=== PATIENT | female | born 1975 | race Caucasian/White ===

== ENCOUNTER 2023-01-31 09:32 | Emergency (ER) | payer MEDICAID, SELFPAY ==
--- NOTE | ~2023-01-31 | XR_ITS ---
EXAMINATION: XR CHEST CLINICAL INFORMATION: Pain COMPARISON: None available. TECHNIQUE: Frontal view of the chest was obtained. FINDINGS: Cardiac silhouette is normal in size. Lungs are well aerated. There is no lobar consolidation. No pleural effusion or pneumothorax. XR/XR chest 1V IMPRESSION: No acute pulmonary pathology.
[2023-01-31 09:41] VITALS: BP 145/80; PULSE 85; RESP 17; TEMP 36.8; O2SAT 99
--- NOTE | 2023-01-31 09:47 | ECG_ITS ---
Test Reason : CP Blood Pressure : / mmHG Vent. Rate : 085 BPM Atrial Rate : 085 BPM P-R Int : 130 ms QRS Dur : 082 ms QT Int : 354 ms P-R-T Axes : 054 095 053 degrees QTc Int : 421 ms Normal sinus rhythm with sinus arrhythmia Rightward axis RSR' or QR pattern in V1 suggests right ventricular conduction delay Borderline ECG No previous ECGs available Referred By: Sondra Hughes Electronically Signed By:KEON CHAMBERS MD
--- NOTE | 2023-01-31 09:54 | ED.GENADULT ---
HPI - General Adult General Chief complaint: General Medical Stated complaint: Nausea Light Headed Time Seen by Provider: 01/31/23 09:48 Source: patient Mode of arrival: ambulatory Limitations: no limitations History of Present Illness HPI narrative: 47 yo female with PMH of anxiety, panic attacks, HLD, syncopal events with normal nuclear stress in August 2022, prior bilateral oophorectomy for ovarian lesion but no reports of malignancy, partial hysterectomy - in [place] for these events at this time she just moved to [place] in November now is helping to raise three small grandchildren and has more stress she notes yesterday at rest chest tightness and fell asleep 3 times. No hx of seizures, did not wake up confused, was not on the floor and has no injuries. She is at baseline now just admits to stress. This has happened before and they blamed her panic attacks. MD complaint: chest pain Onset (ago): day(s) (1) Location: chest Radiation: non-radiation Severity: moderate Quality: other (tightness) Pain Consistency: constant Relieving factors: none Exacerbating factors: other (stress) Associated symptoms: other (anxiety) Treatments prior to arrival: none Related Data Allergies Allergy/AdvReac Type Severity Reaction Status Date / Time No Known Allergies Allergy Verified 01/31/23 09:46 Review of Systems Review of Systems: Constitutional : No Weight loss, No Fever, No Chills ENT/Mouth : No sore throat, No Rhinorrhea Eyes: No Eye Pain, No Swelling Cardiovascular : pos Chest Pain, no SOB, no Dyspnea on Exertion, No Orthopnea, No Edema, No Palpitations Respiratory : No Cough, No Sputum Gastrointestinal : no Nausea, No Vomiting, No Diarrhea, No abdominal Pain, No Hematochezia, No Melena Genitourinary : No Dysuria, No Urinary Frequency Musculoskeletal : No joint pain, No Myalgias, No Joint Swelling Skin : No Skin Lesions, No rash Neuro : No Weakness, No Numbness, No Dizziness, No Headache Psych : No Anxiety/Panic, No Depression All other systems reviewed and are negative [facility] Past Medical History Attestation statement: The following information was validated with the patient. Source: old records reviewed Medical History Anxiety Social History Social History Smoked in Last 30 Days: Yes Use of substances other than those prescribed or required for medical reasons: No Advance Directives: No Physical Exam ED Vital Signs: Vital Signs - 24 hr 01/31/23 09:41 Temperature 98.2 F Pulse Rate 85 Respiratory Rate 17 Blood Pressure 145/80 H Pulse Oximetry 99 Oxygen Delivery Method Room Air BMI result Body Mass Index 30.0 Appearance: Alert. Oriented X3. No acute distress. Eyes: Pupils equal, round and reactive to light. ENT: Pharynx normal. Neck: Normal inspection. Neck supple. CVS: Normal heart rate and rhythm. Pulses normal. Respiratory: No respiratory distress. Breath sounds normal. Abdomen: Soft and nontender. Skin: Skin warm and dry. Normal skin color. Normal skin turgor. Extremities: No lower extremity edema. No calf ttp Neuro: Oriented X 3. No motor deficit. No sensory deficit. Medications Administered Discontinued Medications Generic Name Dose Route Start Last Admin Trade Name Freq PRN Reason Stop Dose Admin Lorazepam 0.5 mg 01/31/23 10:15 01/31/23 10:26 Lorazepam 0.5 Mg Tablet PO 01/31/23 10:16 0.5 mg ONCE ONE Administration Medical Decision Making Medical Decision Making [facility] Narrative: 47 yo female with PMH of anxiety, panic attacks, HLD, syncopal events with normal nuclear stress in August 2022, prior bilateral oophorectomy for ovarian lesion but no reports of malignancy, partial hysterectomy here with c/o atypical chest pain and falling asleep at this time will obtain troponin x 1, EKG, ddimer and CXR - PO ativan for anxiety. She has had these symptoms in the past with negative cardiac workup. Differential Diagnosis Differential Diagnoses: The differential diagnosis associated with the presentation includes anxiety, VTE, atypical chest pain Admission/Observation Consideration of admission/observation: Escalation of care including admission/observation considered EKG nonischemic, trop and ddimer flat at this time no acute findings with > 12 hours of symptoms and similar episodes in past. Lab Data [facility] Lab Attestation statement: I reviewed the patient's lab results. 01/31/23 10:32 01/31/23 10:32 Labs: Lab Results 01/31/23 Range/Units 10:32 WBC 6.1 (4.8-10.8) X10*3/uL RBC 4.60 (4.20-5.50) X10*6/uL Hgb 13.4 (12.0-16.0) g/dl Hct 41.2 (37.0-47.0) % MCV 89.6 (80.0-98.0) fL MCH 29.1 (27.0-33.0) pg MCHC 32.5 (31.0-35.0) g/dl RDW 14.1 (11.0-16.0) % Plt Count 284 (160-400) X10*3/uL MPV 10.0 (9.4-12.3) fL Immature Gran % (Auto) 0.3 (0.0-0.4) % Neut % (Auto) 56.5 (45-73) % Lymph % (Auto) 32.3 (20-40) % [place] % (Auto) 8.7 (2-11) % Eos % (Auto) 1.5 (0-4) % Baso % (Auto) 0.7 (0-2) % Lymph # (Auto) 2.0 (1.2-4.9) X10*3/uL [place] # (Auto) 0.5 (0.1-1.2) X10*3/uL Eos # (Auto) 0.1 (0.0-0.4) X10*3/uL Baso # (Auto) 0.0 (0.0-0.2) X10*3/uL Abs Immat Gran (auto) 0.02 (0.00-0.03) X10*3/uL Absolute Neuts (auto) 3.4 (2.0-8.3) x10*3/uL Absolute Nucleated RBC 0.000 (0.0-0.012) X10*3/uL Nucleated RBC % (auto) 0.0 (0.0-0.2) /100WBC D-Dimer High Sensitivty < 150 NG/ML Sodium 139 (135-145) mmol/L Potassium 4.2 (3.3-5.1) mmol/L Chloride 106 (96-108) mmol/L Carbon Dioxide 27 (22-29) mmol/L Anion Gap 10 L (12-20) BUN 11 (9-16) mg/dL Creatinine 0.78 (0.5-1.4) mg/dL Estim Creat Clear Calc 99.6 Estimated GFR > 60 Random Glucose 93 (60-115) mg/dL Calcium 10.0 (8.4-10.2) mg/dL Magnesium 2.0 (1.6-2.6) mg/dL Total Bilirubin 0.3 (0.0-1.0) mg/dL Direct Bilirubin 0.1 (0.0-0.5) mg/dL AST 20 (5-31) U/L ALT 14 (0-31) U/L Alkaline Phosphatase 97 (39-117) U/L Troponin I High Sens < 2.7 (<3.5-17.0) ng/L B-Natriuretic Peptide 19 (<100) pg/mL Total Protein 7.0 (6.5-8.0) g/dL Albumin 4.0 (3.5-5.0) g/dL TSH 0.89 (0.32-4.0) uIU/mL Urine Color Yellow Urine Appearance Clear Urine pH 7.0 (5.0-9.0) Ur Specific [place] 1.010 (1.005-1.025) Urine Protein Negative (Neg-Trace) mg/dL Urine Glucose (UA) Negative (Negative) mg/dL Urine Ketones Negative (Negative) mg/dL Urine Blood Negative (Negative) Urine Nitrite Negative (Negative) Ur Leukocyte Esterase Negative (Negative) Urine RBC 0-2 (0-2) /HPF Urine WBC 0-5 (0-5) /HPF Ur Squamous Epith Cells 0-2 (0-2) /HPF Urine Bacteria None Seen (None Seen) Hyaline Casts 0-2 (0-2) /LPF Urine Test NEGATIVE (NEGATIVE) Independent Interpretation I performed an independent interpretation of an: EKG and Plain X-Ray (normal ) Interpretation: Rate: 85 Rhythm: NSR [place]: normal Normal P waves. Normal [place]. Normal QRS complex. ST T wave : normal no CARYN qTC: normal prior studies: no acute ischemia The study has been interpreted contemporaneously by me. . Radiology Impression Discussion of test interpretation with radiology: I have reviewed the radiologist's reading. Discharge Plan Discharge Clinical Impression: Atypical chest pain, Anxiety Fatigue Qualifiers: Fatigue type: unspecified Qualified Code(s): R53.83 - Other fatigue Patient Disposition: Home, Self-Care Instructions: Chest Pain (ED), Anxiety (ED), Fatigue (ED) Additional Instructions: chest xray, heart tests, blood clot tests, thyroid all were normal. at this time [facility] to find [facility]CP or contact [facility] to get established [phone] return for worsening symptoms, pain, difficulty breathing, inability to eat or drink or any other concerns.
[2023-01-31] MEDS: LORazepam 0.5 MG TABLET PO (10:26)
--- NOTE | 2023-01-31 10:33 | PC.NURSE ---
labs drawn, iv placed. NSR on tele ativan given per may. plan of care ongoing
[2023-01-31 10:38] LABS: MANUAL DIFF FLAG NO
[2023-01-31 10:43] LABS: Appearance Urine Clear; Basophils Percent Auto 0.7 % (0-2); Color Urine Yellow; Eosinophils Absolute Auto 0.1 X10*3/uL (0.0-0.4); Eosinophils Percent Auto 1.5 % (0-4); Glucose Urine UA Negative (Negative); Hematocrit 41.2 % (37.0-47.0); Hemoglobin 13.4 g/dl (12.0-16.0); Imm Gran Abs Auto 0.02 X10*3/uL (0.00-0.03); Imm Gran Pct Auto 0.3 % (0.0-0.4); Leukocyte Esterase Urine Negative (Negative); Lymphocytes Percent Auto 32.3 % (20-40); Mean Corpuscular HGB Conc 32.5 g/dl (31.0-35.0); Mean Corpuscular Hemoglobin 29.1 pg (27.0-33.0); Mean Corpuscular Volume 89.6 fL (80.0-98.0); Monocytes Absolute Auto 0.5 X10*3/uL (0.1-1.2); Monocytes Percent Auto 8.7 % (2-11); Neutrophils Absolute Auto 3.4 x10*3/uL (2.0-8.3); Neutrophils Percent Auto 56.5 % (45-73); Nitrite Urine Negative (Negative); Platelet Count 284 X10*3/uL (160-400); Red Cell Distribution Width 14.1 % (11.0-16.0); Urine Blood Negative (Negative); Urine Ketones Negative (Negative); Urine Protein Negative (Neg-Trace); White Blood Count 6.1 X10*3/uL (4.8-10.8)
[2023-01-31 10:45] LABS: Bacteria Urine None Seen (None Seen); Hyaline Casts Urine 0-2 /LPF (0-2); RBC Urine 0-2 /HPF (0-2); Squamous Epithelial Cell Urine 0-2 /HPF (0-2); UPreg QC Valid YES; Urine Pregnancy NEGATIVE (NEGATIVE); WBC Urine 0-5 /HPF (0-5)
[2023-01-31 10:51] LABS: D Dimer High Sensitivity < 150 NG/ML
[2023-01-31 10:54] LABS: Anion Gap 10 (12-20); Blood Urea Nitrogen 11 mg/dL (9-16); Carbon Dioxide 27 mmol/L (22-29); Chloride 106 mmol/L (96-108); Creatinine Clr Calc Pharmacy 99.6; Estimated Glomerular Filt Rate > 60; Glucose Random 93 mg/dL (60-115); Potassium 4.2 mmol/L (3.3-5.1); Sodium 139 mmol/L (135-145)
[2023-01-31 11:00] LABS: B Type Natriuretic Peptide 19 pg/mL (<100)
[2023-01-31 11:02] LABS: Alanine Aminotransferase 14 U/L (0-31); Alkaline Phosphatase 97 U/L (39-117); Aspartate Amino Transferase 20 U/L (5-31); Bilirubin Direct 0.1 mg/dL (0.0-0.5); Bilirubin Total 0.3 mg/dL (0.0-1.0)
[2023-01-31 11:03] LABS: Troponin-I High Sensitivity < 2.7 ng/L (<3.5-17.0)
[2023-01-31 11:17] LABS: TSH reflex Free T4 0.89 uIU/mL (0.32-4.0)
== END 2023-01-31 11:46 | disposition home or self-care (01) ==
PROVIDERS: Emergency Provider Emergency Medicine
DX: R11.2 Nausea with vomiting, unspecified (principal); R07.89 Other chest pain; F41.1 Generalized anxiety disorder; F43.0 Acute stress reaction; R06.02 Shortness of breath; Z79.899 Other long term (current) drug therapy
CPT/HCPCS: 36415; 71045; 80048; 80076; 81001; 81025; 83735; 83880; 84443; 84484; 85025; 85379; 93005; 99283; 99284

== ENCOUNTER 2023-03-04 17:28 | Outpatient (REF) | payer MEDICAID, SELFPAY ==
[2023-03-05 21:00] LABS: C. trachomatis RNA TMA NOT DETECTED (NOT DETECTED); N. gonorrhoeae RNA TMA NOT DETECTED (NOT DETECTED)
== END 2023-03-04 17:29 | disposition home or self-care (01) ==
LOC: HO.HHCLNP 17:28
PROVIDERS: Visit Provider Emergency Medicine
DX: R30.0 Dysuria (principal); N89.8 Other specified noninflammatory disorders of vagina
CPT/HCPCS: 36415; 81513; 87086; 87491; 87591

== ENCOUNTER 2023-06-03 13:29 | Outpatient (AMB) | payer MEDICAID, SELFPAY ==
[2023-06-03 13:45] VITALS: BP 120/70; PULSE 67; BMI 30.2
--- NOTE | 2023-06-03 13:45 | A.OFFVIS_ITS ---
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 She is concerned about her chest pain, which she has been having for the last 3 years. She says she is almost has constant chest pain and then has episodes intermittently where she has so sudden-onset severe chest discomfort associated with shortness of breath. This can happen any time including wake her up from the sleep. She also complains of symptoms of dizziness which are not orthostatic in nature there is no clear correlation. She is very concerned as she had a stress test many months ago in [place] and was told that this was not completely normal although she has not able to further tell me anything about it. Do not have the copy of the stress test report. She also had similar chest pain syndrome in [place] and was told that she is stress related issues with the heart although she did not undergo any testing there. She says she is marked hyperlipidemia no higher was prescribed atorvastatin 40 mg for cholesterol of 400 mg/dl. Do not have a copy of the report. She has not had repeat testing since then. She has a lot of personal stress related to taking care her young grandchildren. She however does not think the symptoms are related to stress. She denies any clear exertional symptoms but says she is limited in activity level due to left knee osteoarthritis. [facility] Medical History Hyperlipidemia Anxiety Surgical History Hx of kidney removal Hx of knee surgery Hx of hysterectomy Family History Father CAD (coronary artery disease) Mother CAD (coronary artery disease) Social History Patient Tobacco Use Status: Current someday Tobacco user Tobacco use type: Cigar Review of Systems Const Denies chills, Denies daytime sleepiness, Denies fatigue, Denies fever(s), Denies frequent falls, Denies poor appetite, Denies snoring, Denies stops breathing during sleep, Denies weakness, Denies weight gain and Denies weight loss Eyes Denies loss of vision ENT Denies dizziness and Denies hearing loss Card Denies chest pain, Denies claudication, Denies leg edema, Denies lightheadedness, Denies palpitations, Denies dyspnea, Denies dyspnea on exertion and Denies orthopnea Resp Denies cough, Denies excessive phlegm production, Denies dyspnea, Denies dyspnea on exertion, Denies snoring and Denies wheezing GI Denies abdominal pain, Denies hematochezia, Denies change in bowel habits, Denies nausea and Denies vomiting Denies urinary frequency and Denies dysuria Musc Denies arthralgias, Denies muscle weakness, Denies numbness and Denies other (frequent falls) Skin/Breast Denies nail changes and Denies rash Neuro Denies Abnormal speech present, Denies dizziness, Denies frequent falls, Denies loss of vision, Denies memory loss, Denies numbness and Denies weakness Psych Denies depression and Denies memory loss Endo Denies fatigue and Denies palpitations Winston/Lymph Reports easy bruising and Reports other (anemia) Aller/Immun Denies wheezing Physical Exam Vital Signs: Last Vital Signs Pulse 80 06/03/23 14:06 BP 121/71 06/03/23 14:06 BMI result Body Mass Index 30.2 Const General: cooperative, comfortable, no acute distress, alert and awake Nutritional Appearance: overweight Orientation/consciousness: patient oriented x3 Limitations: no limitations HEENT Head: Yes normocephalic and Yes atraumatic Neck Neck: Yes trachea midline, Yes supple and Yes no JVD Resp Effort & Inspection: normal respiratory effort Auscultation: clear to auscultation bilaterally Cardio Jugular venous distension: no JVD Palpation: normal PMI Rate: regular rate Rhythm: regular rhythm Heart sounds: S1 normal heart sound present, S2 normal heart sound present, no click, no gallops, no murmurs and no rubs GI Auscultation: normal bowel sounds Skin General skin exam: no rashes or lesions noted Neuro General: patient oriented x3 and no focal motor deficits Speech: No Abnormal speech present Extrem General: Yes no clubbing, cyanosis or edema Office Procedures EKG Details: EKG shows normal sinus rhythm with rightward axis otherwise normal EKG [id number], Complete Assessment & Plan Assessment & Plan (1) Atypical chest pain: Code(s): R07.89 - Other chest pain Plan: Atypical chest pain in this middle-aged woman with family history of premature coronary artery disease and sudden cardiac that and a dad very young age as well as marked hyperlipidemia. With chest pain syndrome with very atypical and likelihood of obstructive coronary artery disease is low. Discussed with her about the finding although given her risk factors would suggest her to undergo coronary CTA to evaluate for both presence of coronary atherosclerosis and any hemodynamically significant stenosis. This was discussed with her. This will be scheduled in near future. Also recommend her to undergo echocardiogram to evaluate for cardiac structure and function. These tests will be scheduled in near future. Further treatment based on the findings. (2) Hyperlipidemia: Code(s): E78.5 - Hyperlipidemia, unspecified Plan Patient with prior history of significant hyperlipidemia as per her. Do not have the copy of the old reports. Could represent familial heterozygous hyperlipidemia. Will obtain lipid panel on current atorvastatin therapy to evaluate for response to therapy. Further intensification guidance therapy based on her coronary CTA findings. Follow up in the clinic in 3 months time, sooner p.r.n.. Thank you for allowing me to partake in the care Orders: Orders CA echo transthoracic complete Today R07.89 - Other chest pain CT Cardiac Coronary Angio 1 Week R07.89 - Other chest pain Coding Level of Care Code New Pt Level 4 (66589) Diagnoses Atypical chest pain R07.89 Hyperlipidemia E78.5 CPT Codes EKG - CPT: 36425-[id number], Complete ([id number])
[2023-06-03 14:04] VITALS: BP 117/67; PULSE 62
[2023-06-03 14:06] VITALS: BP 121/71; BP 121/78; PULSE 64; PULSE 80
== END 2023-06-03 14:36 | disposition home or self-care (01) ==
PROVIDERS: PCP Emergency Medicine; Visit Provider Internal Medicine Cardiovascular Disease
DX: R07.89 Other chest pain (principal); E78.5 Hyperlipidemia, unspecified
CPT/HCPCS: 93010; 99204

== ENCOUNTER → 2023-06-03 13:29 | Outpatient (BNVA) | payer MEDICAID, SELFPAY | PROVIDERS: PCP Emergency Medicine; Visit Provider Internal Medicine Cardiovascular Disease | DX: R07.89 Other chest pain (principal); E78.5 Hyperlipidemia, unspecified | CPT/HCPCS: 93005; 99202 ==

== ENCOUNTER → 2023-07-04 10:06 | Outpatient (REF) | payer MEDICAID, SELFPAY ==
--- NOTE | 2023-07-04 10:09 | CA_ITS ---
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 The calculated ejection fraction is 56% by biplane method. - LV peak GLS -14.1%. - No obvious valvular pathology seen on this study. Findings Left Ventricle Normal left ventricular cavity size. The left ventricular systolic function is normal. The calculated ejection fraction is 56% by biplane method. There is no evidence of regional wall motion abnormalities. Diastolic function is normal for age. LV peak GLS -14.1%. Right Ventricle Normal right ventricular cavity size and systolic function. Atria Both atria are normal in size. Aortic Valve There is a normal trileaflet aortic valve. There is no aortic valve stenosis. There is no aortic valve regurgitation. Mitral Valve The mitral valve appears normal. There is no mitral valve regurgitation. There is no mitral valve stenosis. Pulmonic Valve The pulmonic valve is likely normal. Tricuspid Valve There is no tricuspid valve regurgitation. Tricuspid regurgitation envelope is inadequate for calculation of right ventricular systolic pressure. Great Vessels The asc aorta is normal in size. Venous The inferior vena cava is normal in size and collapses greater than 50% with inspiration. Pericardium/Pleural There is no evidence of pericardial effusion. Prior Study Comparison No prior study available for comparison. Recommendations, Care & Conclusions No obvious valvular pathology seen on this study. Measurements 2D Linear Measurements IVSd: 0.76 0.6-0.9/0.6-1.0 cm LVIDd: 4.53 3.9-5.3/4.2-5.9 cm LVIDd Index: 2.35 2.4-3.2/2.2-3.1 cm/m2 LVIDs: 2.91 2.0-3.6 cm LVPWd: 0.73 0.7-1.1 cm LA Diam: 3.40 2.7-3.8/3.0-4.0 cm LAIDs Index: 1.76 1.5-2.3 cm/m2 LV Mass: 130.44 67-162/88-224 g LV Mass Index: 67.59 43-95/49-115 g/m2 LVOT Diam: 2.00 3.0+(-)1.3 cm 2D Systolic Function EF 4C: 53.60 >55% EF 2C: 58.90 >55% EF BiP: 55.70 >55% Mitral Valve MV Pk E: 0.54 MV PK A: 0.46 MV Decel Time: 224.00 E/A: 1.20 E'Lateral: 10.40 E'Medial: 7.07 E/E' Med: 7.60 E/E' Lat: 5.20 PHT: 65.00 MVA PHT: 3.38 Decel [place]: 2.41 Aortic Valve AoV Pk Gordy: 1.05 AoV Mn Gordy: 0.73 AoV VTI: 0.22 AoV Pk Grad: 4.00 Aov Mn Grad: 2.00 FOX Cont.VTI: 2.38 LVOT LVOT Pk [place]: 0.91 LVOT Mn [place]: 0.59 LVOT VTI: 0.17 LVOT Pk Grad: 3.00 LVOT Mn Grad: 2.00 LVOT Diam: 2.00 LVOT Area: 3.14 Diastolic Function MV Pk E: 0.54 MV Pk A: 0.46 E/A: 1.20 E'Medial: 7.07 E/E' Med: 7.60 E' Laterial: 10.40 E/E' Lat: 5.20 Right Ventricle TAPSE (mm): 22.40 TVS' Gordy: 9.46 Tricuspid Valve RA Press: 3.00 Great Vessels Aorta Sinus of Valsalva: 2.79 2.0-3.[address] [place]: 2.17 1.7-3.4 cm Ao Asc: 2.50 2.1-3.4 cm Updated in Other Vendor System with Status of Final Jono Johnson MD electronically signed on 07/05/2023 2:19:07 PM with status of Final
== END ==
LOC: HO.CARD 10:06
PROVIDERS: Visit Provider Internal Medicine Cardiovascular Disease
DX: R07.89 Other chest pain (principal)
CPT/HCPCS: 93306; 93356

== ENCOUNTER → 2023-07-04 10:09 | Outpatient (BNV) | payer MEDICAID, SELFPAY | PROVIDERS: Visit Provider Internal Medicine | DX: R07.9 Chest pain, unspecified (principal) | CPT/HCPCS: 93306; 93356 ==

== ENCOUNTER 2023-07-31 12:35 | Outpatient (REF) | payer MEDICAID, SELFPAY ==
--- NOTE | ~2023-07-31 | XR_ITS ---
EXAMINATION: XR WRIST, RIGHT CLINICAL INFORMATION: Pain status-post fall onto outstretched hand. COMPARISON: None available. TECHNIQUE: PA, lateral, and oblique views of the right wrist. FINDINGS: The bones and soft tissues are normal. No fracture. Alignment is anatomic with normal joint spaces. No erosions or abnormal soft tissue calcifications. XR/XR wrist RT min 3V IMPRESSION: Normal right wrist.
== END 2023-07-31 12:36 | disposition home or self-care (01) ==
LOC: HO.XRAY 12:35
PROVIDERS: Visit Provider Emergency Medicine
DX: M25.531 Pain in right wrist (principal); Z91.81 History of falling
CPT/HCPCS: 73110

== ENCOUNTER 2023-09-10 11:49 | Outpatient (AMB) | payer MEDICAID, SELFPAY ==
[2023-09-10 11:50] VITALS: BP 120/78; PULSE 78; O2SAT 97
--- NOTE | 2023-09-10 11:50 | HO.NEPHOV_ITS ---
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 Thirteen years after transplantation stepfather . Transplant surgery to place in [place]. Few months ago she was in [place] where she was told about a renal cyst. She was asked to monitor this. She has no further information. No imaging is available. She has been referred for evaluation of renal cyst and CKD. The recent blood work 02/04/2023 showed a normal serum creatinine with a creatinine clearance of 99 mL/minute. She has been having vague chest pains. She was seen by Cardiology and CT scan has been ordered. He is unclear if this was done. [facility] Medical History Hyperlipidemia Anxiety Surgical History Hx of kidney removal Hx of knee surgery Hx of hysterectomy Family History Father CAD (coronary artery disease) Mother CAD (coronary artery disease) Social History Patient Tobacco Use Status: Current someday Tobacco user Tobacco use type: Cigar Review of Systems Const Denies fever(s) and Denies weight loss Card Denies chest pain Resp Denies cough and Denies hemoptysis GI Denies abdominal pain, Denies diarrhea and Denies nausea Musc Denies back pain Neuro Denies focal weakness Physical Exam Vital Signs: Last Vital Signs Pulse 78 09/10/23 11:50 BP 120/78 09/10/23 11:50 Pulse Ox 97 09/10/23 11:50 Oxygen Delivery Method Room Air 09/10/23 11:50 BMI result Body Mass Index 30.0 Const General: comfortable; No acute distress Orientation/consciousness: patient oriented x3 Eyes General: appearance normal, both eyes and all related structures Visual Reyes: normal visual reyes by confrontation Neck Neck: Yes supple and Yes no JVD Resp Effort & Inspection: normal respiratory effort and respiratory effort not decreased Auscultation: rhonchi Cardio Palpation: no palpable S3 and no palpable S4 Heart sounds: no rubs GI Inspection: Yes normal to inspection Palpation (GI): Soft to palpation Percussion: Yes normal to percussion Auscultation: normal bowel sounds General: Yes no CVA tenderness Back/Spine/Pelvis Back: no CVA tenderness Skin General skin exam: no petechiae and no purpura Neuro General: patient oriented x3 and no focal motor deficits Extrem General: No clubbing and No edema Results Reviewed Nephrology Results: Hgb 13.4 g/dl (12.0-16.0) 01/31/23 WBC 6.1 X10*3/uL (4.8-10.8) 01/31/23 Plt Count 284 X10*3/uL (160-400) 01/31/23 Sodium 139 mmol/L (135-145) 01/31/23 Potassium 4.2 mmol/L (3.3-5.1) 01/31/23 Chloride 106 mmol/L (96-108) 01/31/23 Carbon Dioxide 27 mmol/L (22-29) 01/31/23 BUN 11 mg/dL (9-16) 01/31/23 Creatinine 0.78 mg/dL (0.5-1.4) 01/31/23 Calcium 10.0 mg/dL (8.4-10.2) 01/31/23 Urine Protein Negative mg/dL (Neg-Trace) 01/31/23 Assessment & Plan Assessment & Plan (1) Renal cyst: Code(s): N28.1 - Cyst of kidney, acquired Category: Medical (2) Solitary kidney, acquired: Code(s): Z90.5 - Acquired absence of kidney Category: Medical Plan Vanessa has a solitary kidney. She has had normal renal function based on labs in 02/04/2023. Corresponding urine studies were unremarkable without any significant protein or blood. History of renal cyst. This needs further evaluation. Plan Initiate a comprehensive workup including renal ultrasonogram to assess the solitary kidney and possible renal cyst. Check urine for cytology. At this time blood pressure is acceptable. Continue overt nephrotoxic agents. Encouraged her to stay on low-sodium diet and increase p.o. fluid intake. I have not added any medications at this time. Once the baseline workup is completed she returned to office and I will keep you updated Orders: Orders Lipid Panel Today N28.1 - Cyst of kidney, acquired, Z90.5 - Acquired absence of kidney Creatinine Urine Today N28.1 - Cyst of kidney, acquired, Z90.5 - Acquired absence of kidney Urine Cytology Today N28.1 - Cyst of kidney, acquired, R31.9 - Hematuria, unspecified, Z90.5 - Acquired absence of kidney Comprehensive Met. Panel Today N28.1 - Cyst of kidney, acquired, Z90.5 - Acquired absence of kidney Complete Blood Count Auto Diff Today N28.1 - Cyst of kidney, acquired, Z90.5 - Acquired absence of kidney Total Protein Urine Random Today N28.1 - Cyst of kidney, acquired, Z90.5 - Acquired absence of kidney UA and rflx microscopic Today N28.1 - Cyst of kidney, acquired, Z90.5 - Acquired absence of kidney Vitamin D 25-OH (D2 and D3) Today N28.1 - Cyst of kidney, acquired, Z90.5 - Acquired absence of kidney US renal BI Today N28.1 - Cyst of kidney, acquired, Z90.5 - Acquired absence of kidney Coding Level of Care Code New Pt Level 4 (10290) Diagnoses Renal cyst N28.1 Solitary kidney, acquired Z90.5
== END 2023-09-10 12:07 | disposition home or self-care (01) ==
PROVIDERS: Referring Provider Emergency Medicine; Visit Provider Internal Medicine Hypertension Specialist
DX: N28.1 Cyst of kidney, acquired (principal); Z90.5 Acquired absence of kidney
CPT/HCPCS: 99204

== ENCOUNTER → 2023-09-10 11:49 | Outpatient (BNVA) | payer MEDICAID, SELFPAY | PROVIDERS: Visit Provider Internal Medicine Hypertension Specialist ==

== ENCOUNTER 2023-09-10 12:11 | Outpatient (REF) | payer MEDICAID, SELFPAY ==
[2023-09-10 13:18] LABS: MANUAL DIFF FLAG NO
[2023-09-10 13:25] LABS: Basophils Absolute Auto 0.1 X10*3/uL (0.0-0.2); Basophils Percent Auto 0.9 % (0-2); Eosinophils Absolute Auto 0.1 X10*3/uL (0.0-0.4); Eosinophils Percent Auto 1.9 % (0-4); Hematocrit 43.4 % (37.0-47.0); Hemoglobin 14.5 g/dl (12.0-16.0); Imm Gran Abs Auto 0.01 X10*3/uL (0.00-0.03); Imm Gran Pct Auto 0.2 % (0.0-0.4); Lymphocytes Absolute Auto 1.8 X10*3/uL (1.2-4.9); Lymphocytes Percent Auto 30.9 % (20-40); Mean Corpuscular HGB Conc 33.4 g/dl (31.0-35.0); Mean Corpuscular Hemoglobin 30.8 pg (27.0-33.0); Mean Corpuscular Volume 92.1 fL (80.0-98.0); Monocytes Absolute Auto 0.5 X10*3/uL (0.1-1.2); Monocytes Percent Auto 9.1 % (2-11); Neutrophils Absolute Auto 3.3 x10*3/uL (2.0-8.3); Platelet Count 289 X10*3/uL (160-400); Red Blood Count 4.71 X10*6/uL (4.20-5.50); Red Cell Distribution Width 12.9 % (11.0-16.0); White Blood Count 5.9 X10*3/uL (4.8-10.8)
[2023-09-10 13:34] LABS: Urine Cytology See Pathology rpt
[2023-09-10 13:37] LABS: Appearance Urine Clear; Color Urine Yellow; Glucose Urine UA Negative (Negative); Leukocyte Esterase Urine Negative (Negative); Nitrite Urine Negative (Negative); PH 7.5 (5.0-9.0); Urine Blood Negative (Negative); Urine Ketones Negative (Negative); Urine Protein Trace mg/dL (Neg-Trace)
[2023-09-10 13:58] LABS: Alanine Aminotransferase 22 U/L (0-31); Albumin Level 4.3 g/dL (3.5-5.0); Alkaline Phosphatase 112 U/L (39-117); Anion Gap 13 (12-20); Aspartate Amino Transferase 22 U/L (5-31); Bilirubin Total 0.4 mg/dL (0.0-1.0); Blood Urea Nitrogen 6 mg/dL (9-16); Carbon Dioxide 27 mmol/L (22-29); Chloride 105 mmol/L (96-108); Cholesterol 271 mg/dL (<200); Estimated Glomerular Filt Rate > 60; Glucose Random 102 mg/dL (60-115); HDL Cholesterol 59 mg/dL (>40); LDL Cholesterol Calculated 165 mg/dL (<100); Potassium 4.4 mmol/L (3.3-5.1); Sodium 141 mmol/L (135-145); Total Protein 7.5 g/dL (6.5-8.0); Triglycerides 236 mg/dL (<150)
[2023-09-10 14:32] LABS: Creatinine Urine 216.83 mg/dL; Total Protein Urine Random 17 mg/dL (<12)
[2023-09-14 15:19] LABS: Vitamin D 25-OH, D2 <4 ng/mL; Vitamin D 25-OH, D3 30 ng/mL; Vitamin D 25-OH, Total 30 ng/mL (30-100)
== END 2023-09-10 12:12 | disposition home or self-care (01) ==
LOC: HO.10HDL 12:11
PROVIDERS: Visit Provider Internal Medicine Hypertension Specialist
DX: N28.1 Cyst of kidney, acquired (principal); R31.9 Hematuria, unspecified; Z90.5 Acquired absence of kidney
CPT/HCPCS: 36415; 80053; 80061; 81003; 82306; 82570; 84156; 85025; 88112; 99202

== ENCOUNTER 2023-09-17 10:53 | Outpatient (REF) | payer MEDICAID, SELFPAY ==
--- NOTE | ~2023-09-17 | US_ITS ---
EXAMINATION: US RETROPERITONEAL LIMITED (RENAL ONLY) CLINICAL INFORMATION: History of right nephrectomy. Cyst in the left kidney. COMPARISON: None available. TECHNIQUE: Targeted sonographic evaluation of retroperitoneal FINDINGS: RIGHT KIDNEY: Surgically. LEFT KIDNEY: 12.4 x 5.3 x 5.8 cm (SAG x AP x TRV). The kidney is normal in size, contour, and echogenicity. Renal cortical thickness is normal. No hydronephrosis. There is left renal mildly complex lower pole cyst measures 3.2 x 3.4 x 3.3 cm was seen septations and internal echoes but no vascularity. Cyst is suggestive for Bosniak 1 cyst. 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 Status post right nephrectomy.
== END 2023-09-17 10:54 | disposition home or self-care (01) ==
LOC: HO.US 10:53
PROVIDERS: Visit Provider Internal Medicine Hypertension Specialist
DX: N28.1 Cyst of kidney, acquired (principal); Z90.5 Acquired absence of kidney
CPT/HCPCS: 76775

== ENCOUNTER 2023-09-18 10:00 | Outpatient (AMB) | payer MEDICAID, SELFPAY ==
--- NOTE | 2023-09-18 10:02 | A.OFFVIS_ITS ---
Vital Signs 09/18/23 10:12 Height 5 ft 6 in Weight 186 lb BMI 30.0 Intake Visit Reasons: N/P right wrist pain possible cyst Intake Note: Vanessa is a 48 year old right hand dominant female who presents today as a new patient for a evaluation right wrist pain, DOI 07/31/23. X rays done on 07/31/23. She states when she moves her hand side to side she feels a lot of pain and notices a little lump on the dorsal aspect of the wrist. Patient expresses that she is having off and on numbness since her injury and also is worse at night. Allergies No Known Allergies Allergy (Verified 09/18/23 10:11) HPI HPI N/P right wrist pain possible cyst : Details: Vanessa is a 48 year old right hand dominant woman who presents with complaints of right wrist pain, S/P fall, DOI: 07/31/23. She complains of pain & swelling in her wrist particularly when moving her hand side to side. She says at times when she moves her wrist she notices a mass on the dorsal aspect of her wrist, and she feels this limits her wrist ROM. She reports her pain as being sharp with ulnar deviation. She reports intermittent numbness in her right hand. She says this began following her injury. Symptoms intermittent. She doesn't work and instead takes care of her 3 children, ages 10-12, & household [facility] Medical History Hyperlipidemia Anxiety Surgical History Hx of kidney removal Hx of knee surgery Hx of hysterectomy Family History Father CAD (coronary artery disease) Mother CAD (coronary artery disease) Social History (Updated 09/18/23 @ 10:12 by Abner Cervantes) Alcohol intake: current Alcohol intake frequency: holidays/special occasions only Patient Tobacco Use Status: Current someday Tobacco user Tobacco use type: Cigar Current occupational status: unemployed Current occupation: right hand dominant Review of Systems Const All systems reviewed & are unremarkable except as noted in HPI and below Physical Exam Vital Signs: BMI result Body Mass Index 30.0 Const General: cooperative, healthy appearing and no acute distress Orientation/consciousness: patient oriented x3 HEENT Head: Yes normocephalic and Yes atraumatic Eyes EOM: EOMs intact bilaterally Resp Effort & Inspection: normal respiratory effort and able to speak in complete sentences Cardio Jugular venous distension: no JVD Skin General skin exam: turgor normal Rashes: no rashes Neuro General: patient oriented x3 Extrem Other: Evaluation of Right Upper Extremity: The patient is alert, oriented, and in no acute distress Neuro: Median, Ulnar, Radial nerves motor and sensory intact and sensation is normal to the tips of all digits Vascular: Cap refill brisk ROM: She can make a fist and extend all her digits No locking or catching Good wrist ROM Skin: No lacerations or abrasions. General: No Ecchymosis. No Erythema or evidence of infection. Using a 1-10 pain scale when assessing her wrist: She has 6/10 tenderness and is most tender to palpation over the ECU tendon as it passes over the triquetrum, and over the triquetrum. There is a 8-10 mm somewhat spherical mass over the distal aspect of the ECU tendon that is best appreciated when the wrist is brought into ulnar deviation. This is also tender to palpation. Bring the hand into ulnar deviation also elicits pain in the ulnar aspect of the wrist. She has 2/10 tenderness more proximally on the ECU tendon just proximal to the ulnar head She has 2/10 tenderness at the DRUJ. The DRUJ is stable. No subluxation of the ECU tendon with prono-supination today in clinic. Full and symmetrical prono-supination without pain Increased pain at the distal aspect of the ECU tendon with resisted wrist extension No tenderness over the distal radius or the ulnar head other than over the ECU. 2/10 foveal tenderness No snuffbox or scaphoid tubercle tenderness Nearly symmetrical wrist flexion and extension without appreciable pain. She does have discomfort with active or passive ulnar deviation of the wrist Radiographs: 3 views of the right wrist from 07/31/23 were reviewed by me today in clinic. They show no fractures, dislocations, or arthritic changes. Psych Appearance: grossly normal Affect: normal affect Attitude: cooperative Assessment & Plan Assessment & Plan (1) Right wrist pain: Code(s): M25.531 - Pain in right wrist Category: Medical (2) Numbness and tingling in right hand: Code(s): R20.0 - Anesthesia of skin; R20.2 - Paresthesia of skin Category: Medical Plan Assessment & Plan: 1. Right ulnar-sided wrist pain, S/P fall DOI: 07/31/23 Most tender to palpation over the dorsal aspect of the triquetrum, and the ECU tendon as it passes over the triquetrum. There is also what feels like a possible cystic mass just proximal to the ECU insertion Her radiographs were unremarkable I ordered an MRI to better visualize her wrist, without contrast She was fitted for another GIFTY wrap to wear with daily activity upon her request She will follow up when completed for review, this should be a 30 minute appointment 2. Right hand numbness, S/P fall DOI: 07/31/23 Symptoms intermittent I ordered a NCS to assess for peripheral nerve compression She will follow up when completed for review Scribed for Feli Andersen MD by Raji Larios, director of graduate medical education, on 09/18/23 at 10:25 AM, EST. Orders: Orders NE nerve conduction velocity Today R20.0 - Anesthesia of skin, R20.2 - Paresthesia of skin Coding Level of Care Code New Pt Level 4 (27736) Diagnoses Right wrist pain M25.531 Numbness and tingling in right hand R20.0; R20.2
== END 2023-09-18 10:53 | disposition home or self-care (01) ==
PROVIDERS: Visit Provider Orthopaedic Surgery
DX: M25.531 Pain in right wrist (principal); R20.0 Anesthesia of skin; R20.2 Paresthesia of skin
CPT/HCPCS: 99203

== ENCOUNTER → 2023-09-18 10:00 | Outpatient (BNVA) | payer MEDICAID, SELFPAY | PROVIDERS: Visit Provider Orthopaedic Surgery | DX: M25.531 Pain in right wrist (principal); R20.2 Paresthesia of skin; R20.0 Anesthesia of skin; Z91.81 History of falling | CPT/HCPCS: 99202 ==

== ENCOUNTER 2023-10-08 09:55 | Outpatient (REF) | payer MEDICAID, SELFPAY ==
--- NOTE | 2023-10-08 09:57 | EMG_ITS ---
Right median and ulnar motor and sensory studies were performed. Right radial and median and lateral antecubital brachial sensory studies were performed and paraspinal muscles were tested with a needle. IMPRESSION: This is an unremarkable study with no significant abnormality. MD ARASELI Vazquez/MARGARITO / [id number]
== END 2023-10-08 09:56 | disposition home or self-care (01) ==
LOC: HO.NEURO 09:55
PROVIDERS: Visit Provider Orthopaedic Surgery
DX: R20.0 Anesthesia of skin (principal); R20.2 Paresthesia of skin
CPT/HCPCS: 95886; 95910

== ENCOUNTER 2023-10-14 09:56 | Outpatient (AMB) | payer MEDICAID, SELFPAY ==
--- NOTE | 2023-10-14 10:38 | MHC.OFFVIS ---
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 She underwent a coronary CTA which shows normal coronary artery without any significant atherosclerosis. Her last LDL was 165 and triglycerides 236 most suggestive of metabolic syndrome. Patient continues to have chest pain. Her echocardiogram shows normal structure of the heart. [facility] Medical History (Updated 10/14/23 @ 11:07 by Aidan Parnell MD) Hyperlipidemia Anxiety Surgical History Hx of kidney removal Hx of knee surgery Hx of hysterectomy Family History Father CAD (coronary artery disease) Mother CAD (coronary artery disease) Social History (Updated 09/18/23 @ 10:12 by Abner Cervantes) Alcohol intake: current Alcohol intake frequency: holidays/special occasions only Patient Tobacco Use Status: Current someday Tobacco user Tobacco use type: Cigar Current occupational status: unemployed Current occupation: right hand dominant Review of Systems Const Denies chills, Denies fatigue, Denies fever(s), Denies frequent falls, Denies weakness, Denies weight gain and Denies weight loss ENT Denies dizziness Card Denies chest pain, Denies leg edema, Denies lightheadedness, Denies palpitations, Denies dyspnea, Denies dyspnea on exertion, Denies orthopnea and Denies other (loss of consciousness) Resp Denies cough, Denies dyspnea and Denies dyspnea on exertion GI Denies hematochezia and Denies change in stool character Musc Denies abnormal gait, Denies muscle weakness, Denies numbness, Denies radiating pain into limb and Denies tingling Neuro Denies Abnormal speech present, Denies abnormal gait, Denies dizziness, Denies frequent falls, Denies numbness, Denies tingling and Denies weakness Endo Denies fatigue and Denies palpitations Physical Exam Vital Signs: Last Vital Signs Pulse 85 10/14/23 10:39 BP 120/78 10/14/23 10:39 BMI result Body Mass Index 29.9 Const General: cooperative, comfortable, no acute distress, alert and awake Nutritional Appearance: overweight Orientation/consciousness: patient oriented x3 Limitations: no limitations HEENT Head: Yes normocephalic and Yes atraumatic Neck Neck: Yes trachea midline, Yes supple and Yes no JVD Resp Effort & Inspection: normal respiratory effort Auscultation: clear to auscultation bilaterally Cardio Jugular venous distension: no JVD Palpation: normal PMI Rate: regular rate Rhythm: regular rhythm Heart sounds: S1 normal heart sound present, S2 normal heart sound present, no click, no gallops, no murmurs and no rubs GI Auscultation: normal bowel sounds Skin General skin exam: no rashes or lesions noted Neuro General: patient oriented x3 and no focal motor deficits Speech: No Abnormal speech present Extrem General: Yes no clubbing, cyanosis or edema Assessment & Plan Assessment & Plan (1) Non-cardiac chest pain: Code(s): R07.89 - Other chest pain Plan: Patient precordial chest pain appears to be noncardiac in origin with normal coronary CTA as well as normal echocardiogram. Discussed with her. Possible other etiologies include musculoskeletal chest pain probably related to anxiety/fibromyalgia, GI related chest pain or pulmonary related chest pain. At this point time no further cardiac workup is indicated. Her lipid panel is most suggestive either mixed hyperlipidemia and/or metabolic syndrome. Discussed with her to consider djqv-aos-ybxjume fish oil and/or niacin and participate more intense lifestyle modification with exercise as well as dietary modification and repeat lipid panel in 6 months try through your office. If remains with persistent elevated triglycerides can consider therapy with Vascepa. This will be pursued through your office. Follow up in the clinic if need be. Thank you for allowing me to partake in her care Coding Level of Care Code Est Pt Level 3 (61123) Diagnoses Non-cardiac chest pain R07.89
[2023-10-14 10:39] VITALS: BP 120/78; PULSE 85; BMI 29.9
== END 2023-10-14 12:06 | disposition home or self-care (01) ==
PROVIDERS: PCP Emergency Medicine; Visit Provider Internal Medicine Cardiovascular Disease
DX: R07.89 Other chest pain (principal)
CPT/HCPCS: 99213

== ENCOUNTER → 2023-10-14 09:56 | Outpatient (BNVA) | payer MEDICAID, SELFPAY | PROVIDERS: PCP Emergency Medicine; Visit Provider Internal Medicine Cardiovascular Disease | DX: R07.89 Other chest pain (principal) | CPT/HCPCS: 99212 ==

== ENCOUNTER 2023-11-15 07:24 | Outpatient (REF) | payer MEDICAID, SELFPAY ==
--- NOTE | ~2023-11-15 | MR_ITS ---
EXAMINATION: MR WRIST WITHOUT CONTRAST, RIGHT CLINICAL INFORMATION: Right wrist pain. COMPARISON: Radiographs dated 07/31/2023. TECHNIQUE: MRI of the wrist was performed using routine sequences on a high-field scanner. FINDINGS: Ligaments/TFCC: Triangular fibrocartilage complex is intact. There is a small focal tear at the junction of the membranous and volar bands to the scaphoid ligament. The dorsal band is normal. No evidence of scapholunate ligament instability. Lunotriquetral ligament is normal. Bones and articular cartilage: Focal chondral thinning is present at the medial aspect of the distal radial articular surface adjacent to the lunate with chondral fissuring and subchondral edema. Joints are otherwise relatively well-preserved. No fracture or malalignment. Joint fluid: Small radiocarpal effusion. No synovitis. Muscles and tendons: Hawjzrda-qj-cpabbm extensor carpi ulnaris tendinosis at the distal 3 cm with peritendinitis edema signal and moderate tenosynovitis. The tenosynovitis is more lobulated distally near the insertion. The tendon is appropriately situated at the distal ulna without displacement. Tendons otherwise unremarkable. No additional tendinosis or tenosynovitis. Musculature is normal in signal intensity. Nerves: Carpal tunnel and Guyon's canal are unremarkable. Superficial soft tissues: No significant ganglion cysts. MR/MR wrist RT wo con IMPRESSION: 1. Ynbjykqj-yl-zoisgv extensor carpi ulnaris tendinosis and tenosynovitis. 2. Small focal tear at the junction of the membranous and volar bands of the scapholunate ligament. No evidence of scapholunate ligament instability. 3. Minimal arthrosis at the radiocarpal joint. Electronically signed by: Gus Meyer MD 11/19/2023 12:45 AM EDT
== END 2023-11-15 07:25 | disposition home or self-care (01) ==
LOC: HO.MRI 07:24
PROVIDERS: PCP Emergency Medicine; Visit Provider Orthopaedic Surgery
DX: M25.531 Pain in right wrist (principal)
CPT/HCPCS: 73221

== ENCOUNTER 2023-11-20 09:43 | Outpatient (REF) | payer MEDICAID, SELFPAY ==
[2023-11-20 11:08] LABS: MANUAL DIFF FLAG NO
[2023-11-20 11:15] LABS: Basophils Absolute Auto 0.1 X10*3/uL (0.0-0.2); Basophils Percent Auto 0.8 % (0-2); Eosinophils Absolute Auto 0.1 X10*3/uL (0.0-0.4); Eosinophils Percent Auto 1.1 % (0-4); Hemoglobin 14.5 g/dl (12.0-16.0); Imm Gran Abs Auto 0.02 X10*3/uL (0.00-0.03); Imm Gran Pct Auto 0.3 % (0.0-0.4); Lymphocytes Absolute Auto 1.9 X10*3/uL (1.2-4.9); Lymphocytes Percent Auto 29.1 % (20-40); Mean Corpuscular Hemoglobin 30.7 pg (27.0-33.0); Mean Corpuscular Volume 93.2 fL (80.0-98.0); Mean Platelet Volume 10.6 fL (9.4-12.3); Monocytes Absolute Auto 0.6 X10*3/uL (0.1-1.2); Monocytes Percent Auto 8.9 % (2-11); Neutrophils Absolute Auto 3.9 x10*3/uL (2.0-8.3); Neutrophils Percent Auto 59.8 % (45-73); Platelet Count 293 X10*3/uL (160-400); Red Blood Count 4.72 X10*6/uL (4.20-5.50); Red Cell Distribution Width 12.5 % (11.0-16.0); White Blood Count 6.5 X10*3/uL (4.8-10.8)
[2023-11-20 11:51] LABS: HBS Num1 0.51 mIU/mL (0-7.99); HBc Num1 0.09 S/CO (0.00-0.79); HBsAGNum1 0.42 S/CO (0.00-0.99); HIV AB/AG Nonreactive (Nonreactive); HIV Num 1 0.07 S/CO (0.00-0.99); Hepatitis A Antibody IgM 0.21 Index (0-0.79); Hepatitis B Core Antibody Nonreactive (Nonreactive); Hepatitis B Surface Antigen Negative (Negative); ~HepC Num1 0.19 S/CO (0.00-0.79); ~Hepatitis A Antibody IgM Nonreactive (Nonreactive); ~Hepatitis B Surface Antibody NONREACTIVE (Nonreactive); ~Hepatitis C Antibody Nonreactive (Nonreactive)
[2023-11-20 11:58] LABS: Alanine Aminotransferase 14 U/L (0-31); Albumin Level 4.1 g/dL (3.5-5.0); Alkaline Phosphatase 108 U/L (39-117); Anion Gap 12 (12-20); Aspartate Amino Transferase 17 U/L (5-31); Bilirubin Total 0.4 mg/dL (0.0-1.0); Blood Urea Nitrogen 7 mg/dL (9-16); Calcium 9.8 mg/dL (8.4-10.2); Carbon Dioxide 26 mmol/L (22-29); Chloride 105 mmol/L (96-108); Cholesterol 356 mg/dL (<200); Estimated Glomerular Filt Rate > 60; Glucose Random 92 mg/dL (60-115); HDL Cholesterol 54 mg/dL (>40); LDL Cholesterol Calculated 259 mg/dL (<100); Potassium 4.2 mmol/L (3.3-5.1); Sodium 139 mmol/L (135-145); TSH reflex Free T4 1.22 uIU/mL (0.32-4.0); Total Protein 7.3 g/dL (6.5-8.0); Triglycerides 218 mg/dL (<150); Vitamin D 25-OH Total 39.3 ng/mL (>30)
[2023-11-20 11:59] LABS: Reflex LDLD? No
[2023-11-22 09:48] LABS: RPR Rapid Plasma Reagin NON-REACTIVE (NON-REACTIVE)
[2023-11-23 11:32] LABS: TS Negative Control Passed; TS Panel A 0; TS Panel B 0; TS Positive Control Passed; TSpotTB Negative (Negative)
== END 2023-11-20 09:44 | disposition home or self-care (01) ==
LOC: HO.HHCL 09:43
PROVIDERS: Visit Provider Internal Medicine
DX: N28.1 Cyst of kidney, acquired (principal); F41.1 Generalized anxiety disorder; F41.0 Panic disorder [episodic paroxysmal anxiety]; E78.5 Hyperlipidemia, unspecified; M17.12 Unilateral primary osteoarthritis, left knee; Z90.710 Acquired absence of both cervix and uterus; Z90.722 Acquired absence of ovaries, bilateral; Z90.79 Acquired absence of other genital organ(s)
CPT/HCPCS: 36415; 80053; 80061; 82306; 84443; 85025; 86481; 86592; 86704; 86706; 86709; 86803; 87340; 87389

== ENCOUNTER 2023-12-10 11:04 | Outpatient (AMB) | payer MEDICAID, SELFPAY ==
[2023-12-10 11:05] VITALS: BP 110/82; PULSE 81; O2SAT 98
--- NOTE | 2023-12-10 11:05 | HO.NEPHOV ---
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 Thirteen years after transplantation stepfather . Transplant surgery to place in [place]. Few months ago she was in [place] where she was told about a renal cyst. She was asked to monitor this. She has no further information. No imaging is available. She has been referred for evaluation of renal cyst and CKD. The recent blood work 02/04/2023 showed a normal serum creatinine with a creatinine clearance of 99 mL/minute. She has been having vague chest pains. She was seen by Cardiology and s/p CT scan [facility] Medical History (Updated 10/14/23 @ 11:07 by Aidan Parnell MD) Hyperlipidemia Anxiety Surgical History Hx of kidney removal Hx of knee surgery Hx of hysterectomy Family History Father CAD (coronary artery disease) Mother CAD (coronary artery disease) Social History Alcohol intake: current Alcohol intake frequency: holidays/special occasions only Patient Tobacco Use Status: Current someday Tobacco user Tobacco use type: Cigar Current occupational status: unemployed Current occupation: right hand dominant Physical Exam Vital Signs: Last Vital Signs Pulse 81 12/10/23 11:05 BP 110/82 12/10/23 11:05 Pulse Ox 98 12/10/23 11:05 Oxygen Delivery Method Room Air 12/10/23 11:05 BMI result Body Mass Index 30.0 Results Reviewed Nephrology Results: Hgb 14.5 g/dl (12.0-16.0) 11/20/23 WBC 6.5 X10*3/uL (4.8-10.8) 11/20/23 Plt Count 293 X10*3/uL (160-400) 11/20/23 Sodium 139 mmol/L (135-145) 11/20/23 Potassium 4.2 mmol/L (3.3-5.1) 11/20/23 Chloride 105 mmol/L (96-108) 11/20/23 Carbon Dioxide 26 mmol/L (22-29) 11/20/23 BUN 7 mg/dL (9-16) L 11/20/23 Creatinine 0.93 mg/dL (0.5-1.4) 11/20/23 Calcium 9.8 mg/dL (8.4-10.2) 11/20/23 Urine Protein Trace mg/dL (Neg-Trace) 09/10/23 Urine Creatinine 216.83 mg/dL 09/10/23 Renal US 09/17/23 Assessment & Plan Assessment & Plan (1) Renal cyst: Code(s): N28.1 - Cyst of kidney, acquired Category: Medical (2) Solitary kidney, acquired: Code(s): Z90.5 - Acquired absence of kidney Category: Medical Plan Vanessa has a solitary kidney. She has had normal renal function based on labs in 02/04/2023. Corresponding urine studies were unremarkable without any significant protein or blood. History of renal cyst. This needs further evaluation. renal ultrasonogram shows Bosnik Type 1 cyst ? mild complexity Shall follow closely Follow up scan in 1 yr At this time blood pressure is acceptable. Continue to avoid nephrotoxic agents. Encouraged her to stay on low-sodium diet and increase p.o. fluid intake. Orders: Orders US renal BI 11 Months N28.1 - Cyst of kidney, acquired, Z90.5 - Acquired absence of kidney UA and rflx microscopic 11 Months N28.1 - Cyst of kidney, acquired, Z90.5 - Acquired absence of kidney Basic Metabolic Panel 11 Months N28.1 - Cyst of kidney, acquired, Z90.5 - Acquired absence of kidney Urine Cytology 11 Months N28.1 - Cyst of kidney, acquired, R31.9 - Hematuria, unspecified, Z90.5 - Acquired absence of kidney Coding Level of Care Code Est Pt Level 2 (36813) Diagnoses Renal cyst N28.1 Solitary kidney, acquired Z90.5
== END 2023-12-10 11:22 | disposition home or self-care (01) ==
PROVIDERS: PCP Emergency Medicine; Referring Provider Emergency Medicine; Visit Provider Internal Medicine Hypertension Specialist
DX: N28.1 Cyst of kidney, acquired (principal); Z90.5 Acquired absence of kidney
CPT/HCPCS: 99213

== ENCOUNTER → 2023-12-10 11:04 | Outpatient (BNVA) | payer MEDICAID, SELFPAY | PROVIDERS: PCP Emergency Medicine; Referring Provider Emergency Medicine; Visit Provider Internal Medicine Hypertension Specialist | DX: N28.1 Cyst of kidney, acquired (principal); Z90.5 Acquired absence of kidney | CPT/HCPCS: 99212 ==

== ENCOUNTER 2023-12-25 09:56 | Outpatient (REF) | payer MEDICAID, SELFPAY ==
--- NOTE | ~2023-12-25 | XR_ITS ---
EXAMINATION: XR HIP, LEFT XR KNEE, LEFT CLINICAL INDICATION: Arthritis left knee, pain, osteoarthritis status post total knee replacement. Patient states her provider thinks her knee issues are causing her hip pain. COMPARISON: Nany Donohue None available. TECHNIQUE: 2 views of the left hip, 4 views of the left knee. FINDINGS: LEFT HIP: Left hip alignment maintained. Left hip joint space is preserved. LEFT KNEE: Moderate joint effusion. Mild narrowing of the medial compartment. Tiny tricompartmental osteophytes. Postsurgical changes in the proximal tibia with 3 transverse screws. Hardware appears intact. XR/XR knee LT 4V IMPRESSION: 1. Moderate joint effusion left knee. Mild degenerative changes left knee. 2. Left hip joint space is preserved. 3. Postsurgical changes in the proximal tibia with 3 transverse screws. Hardware appears intact. This study was presented today December 25, 2023 for interpretation. Stat results provided at this time as requested by referring provider. Electronically signed by: Kaye Dean MD 12/25/2023 02:01 PM EDT
--- NOTE | ~2023-12-25 | XR_ITS ---
EXAMINATION: XR RIGHT HIP 2 VIEWS CLINICAL INFORMATION: Hip bilateral. Arthritis of left knee. Knee issues are causing her hip pain. COMPARISON: None available. TECHNIQUE: Two views of the right hip. FINDINGS: No fracture. Alignment is anatomic. Hip joint space is maintained. Soft tissues are unremarkable. XR/XR hip RT min 2V IMPRESSION: Normal right hip. Electronically signed by: Kaur Light MD 02/26/2024 06:28 PM ANA LUISA VEE
--- NOTE | ~2023-12-25 | XR_ITS ---
EXAMINATION: XR HIP, LEFT XR KNEE, LEFT CLINICAL INDICATION: Arthritis left knee, pain, osteoarthritis status post total knee replacement. Patient states her provider thinks her knee issues are causing her hip pain. COMPARISON: Nany Donohue None available. TECHNIQUE: 2 views of the left hip, 4 views of the left knee. FINDINGS: LEFT HIP: Left hip alignment maintained. Left hip joint space is preserved. LEFT KNEE: Moderate joint effusion. Mild narrowing of the medial compartment. Tiny tricompartmental osteophytes. Postsurgical changes in the proximal tibia with 3 transverse screws. Hardware appears intact. XR/XR hip LT min 2V IMPRESSION: 1. Moderate joint effusion left knee. Mild degenerative changes left knee. 2. Left hip joint space is preserved. 3. Postsurgical changes in the proximal tibia with 3 transverse screws. Hardware appears intact. This study was presented today December 25, 2023 for interpretation. Stat results provided at this time as requested by referring provider. Electronically signed by: Kaye Dean MD 12/25/2023 02:01 PM EDT
== END 2023-12-25 09:57 | disposition home or self-care (01) ==
LOC: HO.HHCX 09:56
PROVIDERS: Visit Provider Internal Medicine
DX: M25.551 Pain in right hip (principal); M17.12 Unilateral primary osteoarthritis, left knee; M25.552 Pain in left hip
CPT/HCPCS: 73502; 73564

== ENCOUNTER 2023-12-31 09:51 | Outpatient (AMB) | payer MEDICAID, SELFPAY ==
--- NOTE | 2023-12-31 10:14 | MHC.OFFVIS ---
Vital Signs 12/31/23 10:19 Height 5 ft 6 in Weight 186 lb BMI 30.0 Intake Visit Reasons: OV- Right wrist MRI review Intake Note: Vanessa is a 48 year old right hand dominant female who presents today for a follow up of right wrist pain to review MRI, DOI 07/31/23. Patient reports she continues to have intermittent swelling and pain in her right wrist. Negative EMG on 10/08/23. Dolly Operator Name: Shaylee Tovar ID#[id number] Allergies No Known Allergies Allergy (Verified 12/31/23 10:19) HPI HPI OV- Right wrist MRI review: Details: Vanessa is a 48 year old right hand dominant woman who returns for an MRI review of her right wrist pain, S/P fall, DOI: 07/31/23. She complains of pain & swelling in the dorsal ulnar aspect of her wrist particularly when moving her hand side to side. She says this is more intermittent & has improved only slightly, but still limits her activities. She reports her pain as being sharp with ulnar deviation. She doesn't work and instead takes care of her 3 children, ages 10-12, & household [facility] Medical History (Updated 12/31/23 @ 10:41 by Raji Larios) Hyperlipidemia Anxiety Surgical History Hx of kidney removal Hx of knee surgery Hx of hysterectomy Family History Father CAD (coronary artery disease) Mother CAD (coronary artery disease) Social History Alcohol intake: current Alcohol intake frequency: holidays/special occasions only Patient Tobacco Use Status: Current someday Tobacco user Tobacco use type: Cigar Current occupational status: unemployed Current occupation: right hand dominant Physical Exam Vital Signs: BMI result Body Mass Index 30.0 Extrem Other: Evaluation of Right Upper Extremity: The patient is alert, oriented, and in no acute distress Neuro: Median, Ulnar, Radial nerves motor and sensory intact and sensation is normal to the tips of all digits Vascular: Cap refill brisk ROM: She can make a fist and extend all her digits No locking or catching Good wrist ROM Most tender over the ECU tendon, just distal to the ulna This pain is worse with ulnar deviation of the wrist, or resisted wrist extension The DRUJ is stable. No subluxation of the ECU tendon with prono-supination today in clinic. No tenderness over the distal radius or the ulnar head other than over the ECU. 2/10 foveal tenderness Nearly symmetrical wrist flexion and extension without appreciable pain. MR/MR wrist RT wo con FINDINGS: Ligaments/TFCC: Triangular fibrocartilage complex is intact. There is a small focal tear at the junction of the membranous and volar bands to the scaphoid ligament. The dorsal band is normal. No evidence of scapholunate ligament instability. Lunotriquetral ligament is normal. Bones and articular cartilage: Focal chondral thinning is present at the medial aspect of the distal radial articular surface adjacent to the lunate with chondral fissuring and subchondral edema. Joints are otherwise relatively well-preserved. No fracture or malalignment. Joint fluid: Small radiocarpal effusion. No synovitis. Muscles and tendons: [id number] extensor carpi ulnaris tendinosis at the distal 3 cm with peritendinitis edema signal and moderate tenosynovitis. The tenosynovitis is more lobulated distally near the insertion. The tendon is appropriately situated at the distal ulna without displacement. Tendons otherwise unremarkable. No additional tendinosis or tenosynovitis. Musculature is normal in signal intensity. Nerves: Carpal tunnel and Guyon's canal are unremarkable. Superficial soft tissues: No significant ganglion cysts. IMPRESSION: 1. [id number]-[id number] extensor carpi ulnaris tendinosis and tenosynovitis. 2. Small focal tear at the junction of the membranous and volar bands of the scapholunate ligament. No evidence of scapholunate ligament instability. 3. Minimal arthrosis at the radiocarpal joint. Electronically signed by: Gus Meyer MD 11/19/2023 Nerve Conduction Study: IMPRESSION: This is an unremarkable study with no significant abnormality. Thao Rolle MD 10/08/2023 Office Procedures AMB Fracture Care Details: No fracture, injection Fracture Billing Code: Fracture Billing Code Assessment & Plan Assessment & Plan (1) Extensor tenosynovitis of right wrist: Comment: ECU Code(s): M65.931 - Unspecified synovitis and tenosynovitis, right forearm Category: Medical Plan Assessment & Plan: 1. Right ECU tenosynovitis, S/P fall DOI: 07/31/23 Most tender to palpation over the dorsal aspect of the triquetrum, and the ECU tendon as it passes over the triquetrum. I educated her about this condition I discussed treatment options I recommend an injection & activity modification, she was hesitant to proceed but ultimately did agree to an injection today She was fitted fort a velcro wrist splint, to be worn with daily activities I discussed activity modifications, she should limit or avoid any activities which cause her pain She should work on wrist ROM exercises at home Injection #1: The risks and benefits of a steroid injection including but not limited to risk of damage to blood vessels, nerves, tendons, infection, skin bleaching, failure to improve symptoms, increased pain, and possible need for further injections or other intervention were discussed with the patient and the patient wishes to proceed with the steroid injection. Once consent was obtained, I sterilely prepped the area over the ECU tendon sheath of the Right wrist. I then injected the tendon sheath with a combination of 1 mL of dexamethasone (4mg/ml), and 1% lidocaine. The patient tolerated the procedure well with no complications and, before leaving clinic, good improvement of their symptoms of pain from the base of the 5th metacarpal to the proximal ulnar styloid. She still had some pain distal to the ulnar styloid. If the patient continues to have pain 6-8 weeks following this injection, they may call to schedule appointment to discuss alternative treatment options She will follow up prn 2. Right hand numbness, S/P fall DOI: 07/31/23 Unremarkable NCS on 10/15/23 Resolved, no complaints today Scribed for Feli Andersen MD by Raji Larios medical professionals, on 12/31/23 at 10:55 AM, EST. Coding Level of Care Code Est Pt Level 4 (36530) Diagnoses Extensor tenosynovitis of right wrist M65.931 CPT Codes Fracture Care - Fracture Billing Code: Fracture Billing Code ([id number])
== END 2023-12-31 11:26 | disposition home or self-care (01) ==
PROVIDERS: PCP Emergency Medicine; Visit Provider Orthopaedic Surgery
DX: M65.931 Unspecified synovitis and tenosynovitis, right forearm (principal)
CPT/HCPCS: 20550; 99214

== ENCOUNTER → 2023-12-31 09:51 | Outpatient (BNVA) | payer MEDICAID, SELFPAY | PROVIDERS: PCP Emergency Medicine; Visit Provider Orthopaedic Surgery | DX: M65.931 Unspecified synovitis and tenosynovitis, right forearm (principal); Z91.81 History of falling; Z71.2 Person consulting for explanation of examination or test findings | CPT/HCPCS: 20550; 99212; J1100; J2003 ==

== ENCOUNTER 2024-03-04 09:59 | Outpatient (REF) | payer MEDICAID, SELFPAY | END 2024-03-04 10:00 | disposition home or self-care (01) | LOC: HO.MAMMO 09:59 | PROVIDERS: Visit Provider Internal Medicine | DX: Z12.31 Encounter for screening mammogram for malignant neoplasm of breast (principal) | CPT/HCPCS: 77063; 77067 ==

== ENCOUNTER → 2024-03-04 10:15 | Outpatient (BNV) | payer MEDICAID, SELFPAY | PROVIDERS: Visit Provider Internal Medicine | DX: Z12.31 Encounter for screening mammogram for malignant neoplasm of breast (principal) | CPT/HCPCS: 77063; 77067 ==

== ENCOUNTER 2024-10-19 11:20 | Outpatient (REF) | payer MEDICAID, SELFPAY ==
--- NOTE | ~2024-10-19 | US_ITS ---
CLINICAL HISTORY: Z90.5 - Acquired absence of kidney US Renal Comparison: US/SR - US KIDNEY BILATERAL - 09/17/23 11:01 EDT Findings: Right kidney is surgically absent Left kidney normal size and echotexture, 11.1 cm length. Interpolar septated cyst measuring 41 mm. No collecting system dilatation of either kidney. Normal color Doppler. IMPRESSION: 1. Status post right nephrectomy. 2. Increased septated left renal cyst, consistent with Bosniak 1 lesion. This document has been electronically signed by: Mony Woodard MD on 10/19/2024 15:04:09
--- OUTSIDE RECORDS SUMMARY | 2024-10-19 12:16 | XMS_ITS | Clinical Summary ---
Author Organization [employer] Address [address] [facility] [address] [place] [address] Care Team Providers Care Helicopter Crew Chief Name Role Phone Shaylee Rogers MD Primary Care Provider + Allergies No known active allergies Medications * This document contains information received from the source organization and may not represent a complete record from that organization. rosuvastatin (Crestor) 20 MG tablet Take 1 tablet (20 mg) by mouth Once per day. 30 tablet 11 4 12/23/19 25 Active venlafaxine XR (Effexor XR) 37.5 MG 24 hr capsule Take 1 capsule (37.5 mg) by mouth Once per day. Do not crush or chew. 30 capsule 4 5 07/23/19 26 Active Acetaminophen 500 MG capsule Take one to two tablets as needed for fever or pain every 6 hours 90 capsule 3 5 Active lidocaine (Xylocaine) 5 % ointmentIndication s:Post-traumatic osteoarthritis of left knee Apply topically if needed for mild pain. 50 g 3 5 07/23/19 26 Active methocarbamol (Robaxin) 500 MG tabletIndications: Primary osteoarthritis of both hips Take 1 tablet (500 mg) by mouth 3 times daily for 10 days. 30 tablet 3 5 Active Active Problems Problem Noted Date Diagnosed Date Post-traumatic osteoarthritis of left knee 01/19 Assessment & Plan (07/22/2024 10:55 AM EDT): Significantly limiting ambulation according to patient, however she refuses PT or referral to orthopedics for steroid injection. She will call back as needed if she wants to be seen our chronic pain management clinic which she declines at this time, she is aware of her acupuncture program Continue Tylenol as needed, avoid NSAIDs due to nephrectomy Encounter for immunization 01/20/2024 Panic disorder 01/20/2024 Pelvic pain in female 01/06/2024 Overview (01/06/2024): [place] [facility] 12/2020 Lysis of adhesions + pelvic cyst resection 12/2022 Assessment & Plan (07/22/2024 10:58 AM EDT): Related to adhesions from previous surgeries. Recommended to avoid constipation, increase physical activity especially after meals, increase water intake etc. I gave her information regarding GI referral so that she can to schedule appointment I gave her information regarding [facility] referral that she has requested previously again we discussed that it is very unlikely that her [facility] can help relieve any the case of adhesions, she will get back to me as needed abdominal/pelvic pain Assessment & Plan (01/20/2024 12:04 PM EST): Ro colon pathology, she was referred to GI for colonoscopy. It could also be related to pelvic adhesions, I d/w patient re potential sxs, she will re consult prn uTI , incontinence sxs. A referral to [facility] has been made at her request, she's aware that she needs to bring surgical information to [facility] and that sxs are most likely NOT related to [facility] cause. Tenosynovitis of right wrist 12/23/2023 Assessment & Plan (12/23/2023 9:55 AM EDT): - discussed with pt results of MRI findings, she will f/u with ortho in 2 weeks Preventative health care 12/23/2023 Assessment & Plan (12/23/2023 9:56 AM EDT): - pt agreed to have Hep-B series starting today, declined to have influenza IZ today PTSD (post-traumatic stress disorder) 11/29/2023 Generalized anxiety disorder with panic attacks 11/15/2023 Assessment & Plan (07/22/2024 10:56 AM EDT): Restart Effexor 37.5 mg and follow-up in 6 to 8 weeks Continue close follow-up with psychotherapist, we discussed about CBT, relaxation techniques and other ways to control panic attacks She feels safe at home and is able to reach out for safety Assessment & Plan (11/15/2023 1:32 PM EDT): Pt may need to be connected again with behavioral health. Continue on Effexor 37.5 mg and follow up in 6 weeks. Arthritis of left knee 11/15/2023 Assessment & Plan (01/20/2024 12:06 PM EST): Continue PT and tylenol Reminded her to come to acupuncture clinic. Xrays of knees are faxed to PT at patient's request. Assessment & Plan (12/23/2023 9:38 AM EDT): - continue Tylenol PRN - advised to come to acupuncture clinic - refer to PT Assessment & Plan (11/15/2023 1:31 PM EDT): Will order XR of left knee and review record from previous PCP and Orthopaedic. May need PT or Ortho referral. Continue on Tylenol prn. Primary osteoarthritis of both hips 11/15/2023 Assessment & Plan (07/22/2024 10:54 AM EDT): Declined Toradol injection and does not want to go back to PT or our chronic pain management program. We discussed about interventional epidural injections either here or joint injection clinic or pain clinic but she declined We we discussed about taking Tylenol, avoid NSAIDs due to nephrectomy and reconsult as needed She will get back to me as needed if she needs ambulatory device or DME's at home to prevent falls Assessment & Plan (01/20/2024 12:08 PM EST): >>ASSESSMENT AND PLAN FOR PAIN OF RIGHT HIP WRITTEN ON 11/15/2023 2:53 PM BY SHAYLEE ROGERS MD R/o OA vs pain radiated from left knee OA. Order Xray of the hip Take tylenol prn pain. Assessment & Plan (01/20/2024 12:08 PM EST): >>ASSESSMENT AND PLAN FOR PAIN OF RIGHT HIP WRITTEN ON 12/23/2023 9:54 AM BY BRIDGETTE SHEA - most likely OA of the right hip, refer to PT - use Tylenol PRN and advised to come to acupuncture clinic Assessment & Plan (01/20/2024 12:08 PM EST): Referral had been sent at previous appt. Continue Tylenol and advised to come to acupuncture clinic. Declined Toradol injection, can have it prn, she will call back prn pain. Faxed Xray reports to PT , as per her request Tobacco dependence 03/04/2023 History of right nephrectomy 03/04/2023 Chronic suprapubic pain 03/04/2023 Anxiety 03/04/2023 S/P CLEMENTINE-BSO (total abdominal hysterectomy and bilateral salpingo-oophorectomy) 03/04/2023 Overview (11/15/2023): Due to DUB/fibroid, no hx malignancy H/O left knee surgery 03/04/2023 Hyperlipidemia 03/04/2023 Assessment & Plan (12/23/2023 9:51 AM EDT): Not improving on Liptor 40, will start Crestor 20 mg F/u LFTs in 3 months We discussed re rx options. Recommended moderate amount of exercise and increase consumption of fruit, vegetables, fish and high fiber foods. Should decrease consumption of highly saturated fats or trans fats. Assessment & Plan (11/15/2023 1:32 PM EDT): Off Lipitor x 1 month, will restart today. Order Lipid profile and adjust medication accordingly. Cyst of left kidney 03/04/2023 Overview (11/15/2023): [facility] Renal US 09/17/23: Left renal complex cyst on lower pole, with septations and internal echoes but no vascularity, measures 3.2 x 3.4 x 3.3 cm. Absent right kidney. Assessment & Plan (11/15/2023 1:30 PM EDT): She has been referred to Nephrology already, will obtain BMP. Obtain previous US from previous PCP. Encounters * This document contains information received from the source organization and may not represent a complete record from that organization. Date Type Department Care Team Description 09/17/2024 Telephone [facility] [address] [place] [address] Shaylee Rogers MD November07/22/2024 9:00 AM EDT Office Visit [facility] [address] [place] [address] Shaylee Rogers MD Pelvic pain in female (Primary Dx); Generalized anxiety disorder with panic attacks; Post-traumatic osteoarthritis of left knee; Primary osteoarthritis of both hips 07/22/2024 Travel 07/21/2024 Telephone [facility] [address] [place] [address] Shaylee Rogers MD Chart Prep from Last 3 Months Immunizations Immunization Administration Dates Next Due Hep B, adult 12/23/2023 Influenza, seasonal, injectable, preservative fr ee 01/20/2024 Social History Tobacco Use Types Packs/Day Years Used Date Smoking Tobacco: Former Cigarettes Smokeless Tobacco: Never Tobacco Cessation:Counseling Given: Not Answered Alcohol Use Standard Drinks/Week Comments Not Currently 0 (1 standard drink = 0.6 oz pur e alcohol) oca Depression Answer Date Recorded Patient Health Questionnaire-9 Score 16 11/15/2023 Patient Health Questionnaire-9 Score 16 11/15/2023 Last PHQ-9: Questionnaire Data Not on file 0 11/15/2023 Housing Stability Answer Date Recorded What is your housing situation today? I have laurita moreno 11/15/[address] you li ve. Do you have problems with any of the following? None of the above 11/15/2023 Food Insecurity Answer Date Recorded Within the past 12 months, y ou worried that your food would run out before you got money to buy more: Never True 11/15/2023 Within the past 12 months,th e food you bought just didn't last and you didn't have enough money to get more: Never True Transportation Answer Date Recorded In the past 12 months, has l ack of transportation kept you from medical appts, meetings, work or from getting things needed for daily living? No 11/15/2023 Utilities Answer Date Recorded In the past 12 months, has t he electric, gas, oil or water company threatened to shut off services in your home? No 11/15/2023 Depression Answer Date Recorded Patient Health Questionnaire-2 Score 6 11/15/2023 Internet Access Answer Date Recorded Internet Access Q1 Yes 04/17/2024 Internet Access Q2 I do not want or need it 03/20 Comments No Sex and Gender Information Value Date Recorded Sex Assigned at Female 03/04/2023 8:53 AM EST Legal Sex Female 8:46 AM EST Gender Identity Female 03/04/2023 8:53 AM EST Sexual Orientation Straight 03/04/2023 8: 53 AM EST Last Filed Vital Signs Vital Sign Reading Time Taken Comments Blood Pressure 114/79 07/22/2024 8:59 AM EDT Pulse 78 07/22/2024 8:59 AM EDT Temperature 35.7 C (96.2 F) 07/22/2024 8:59 AM EDT Respiratory Rate 16 07/22/2024 8:59 AM EDT Oxygen Saturation 99% 07/22/2024 8:59 AM EDT Inhaled Oxygen Concentration - - Weight 89.5 kg (197 lb 6 oz) 07/22/2024 8:59 AM EDT Height 167.6 cm (5' 6 ) 07/22/2024 8:59 AM EDT Body Mass Index 31.86 07/22/2024 8:59 AM EDT Plan of Treatment Health Maintenance Due Date Last Done Comments CT Colonography 1975 Colonoscopy 1977 Colorectal Cancer Screening 1975 FIT DNA/Cologuard 1977 FIT 1977 FOBT 1975 Sigmoidoscopy 1975 Disability Screening 1977 Family Planning (PISQ) 1992 DTaP/Tdap/Td Vaccines (1 - Tdap) 1996 COVID-19 Vaccine ( - 2023-2 5 season) 2023 Hepatitis B Vaccines (2 of 3 - 19+ 3-dose series) 01/20/2024 12/23/2023 Depression Monitoring 05/15/2024 11/15/2023 , 11/15/2023 Influenza Vaccine (#1) 2024 01/20/2024 Alcohol/Substance Use Screening 01/19/2025 01/20/2024 Mammogram 03/04/2025 03/04/2024 SDOH Screening 04/17/2025 04/17/2024 Tobacco Screening 07/22/2025 07/22/2024 Zoster Vaccines (1 of 2) 2027 RSV Patients and Patients Aged 60 years or older (1 - 1-dose 75+ series) 2052 HIV Screening Completed 11/20/2023 Hepatitis C Screening Completed 11/20/2023 HIB Vaccines Aged Out No longer eligi ble based on patient's age to complete this topic HPV Vaccines Aged Out No longer eligi ble based on patient's age to complete this topic Hepatitis A Vaccines Aged Out No long er eligible based on patient's age to complete this topic IPV Vaccines Aged Out No longer eligi ble based on patient's age to complete this topic Meningococcal B Vaccine Aged Out No l onger eligible based on patient's age to complete this topic Meningococcal Vaccine Aged Out No luna brian eligible based on patient's age to complete this topic Pneumococcal Vaccine: Pediatrics (0 to 5 Years) and At-Risk Patients (6 to 49) Years Aged Out No longer eligible b ased on patient's age to complete this topic RSV under 20 months Aged Out No longe r eligible based on patient's age to complete this topic Rotavirus Vaccines Aged Out No longer eligible based on patient's age to complete this topic Procedures Procedure Name Priority Date/Time Associated Diagnosis Comments BI MAMMOGRAM SCREENING TOMOSYNTHESIS BILATERAL Routine 03/04/2024 10:15 AM EST Screening mammogram for breast cancer HEPATITIS PANEL, GENERAL Routine 11/20/2023 9:46 AM EDT Hyperlipidemia, unspecified hyperlipidemia type HIV 1/2 ANTIGEN/ANTIBODY, FOURTH GENERATION W/RFL Routine 11/20/2023 9:46 AM EDT Arthritis of left knee from Last 3 Months or Most Recently Relevant to Health Maintenance Results * BI Mammogram Screening Tomosynthesis Bilateral (03/04/2024 10:15 AM EST) Anatomical Region Laterality Modality Breast Bilateral Mammography 03/04/2024 10:1 5 AM EST Narrative 03/16/2024 2:04 PM EST [facility] [address] [place] [address] Mammography Report Signed Patient: Vanessa Nash MR#: [id number] [birth year] : 1975 Acct:[id number] Age/Sex: 48 / F ADM Date: 03/04/24 Loc: HO.MAMMO Attending Dr: Shaylee Rogers MD Ordering Physician: Shaylee Rogers MD Results: 1Ne gative Date of Service: 03/04/24 Follow Up: 1 Year From Orig inal Mammogram Procedure(s): MM tomosynthesis screening BI Accession Number(s): [id number] cc: Shaylee Rogers MD EXAMINATION: MM SCREENING DIGITAL BREAST TOMOSYNTHESIS, BILATERAL CLINICAL INFORMATION: Screening. Asymptomatic. COMPARISON: Mammography: No prior imaging is available for comparison. TECHNIQUE: Digital breast mammography with tomosynthesis is performed in both the craniocaudal and mediolateral oblique views along with computer-aided detection (CAD). FINDINGS: There are scattered areas of fibroglandular density (ACR BI-RADS breast composition Category b). There are no significant masses, abnormal calcifications, or other abnormalities. MM/MM tomosynthesis screening BI IMPRESSION: No mammographic evidence of malignancy. ASSESSMENT: BI-RADS BI-RADS 1 - Negative RECOMMENDATION: Routine annual mammography screening. 1 year F/U This examination should not preclude the clinical evaluation of a suspicious palpable abnormality. This patient's information was entered into a reminder system with a target due date for their next mammogram. Electronically signed by: Brittany Gilliland DO 03/16/2024 02:01 PM EST Dictated By: Brittany Gilliland DO Signed By: <Electronically signed by Brittany Gilliland DO in OV> 03/16/24 1401 DD/ 1015 TD/TT: 03/04/24 1025 Cloth Feeder: Procedure Note Donotuseinterpreter, Image - [facility] [address] [place] [address] Mammography Report Signed Patient: Keshav Nash#: [id number] 05 : 1975Acct:[id number] Age/Sex: 48 / FADM Date: 03/04/24 Loc: HO.MAMMO Attending Dr: Shaylee Rogers MD Ordering Physician: Shaylee Rogers MDResults: 1Ne gative Date of Service: 03/04/24Follow Up: 1 Year From Orig ina Mammogram Procedure(s): MM tomosynthesis screening BI Accession Number(s): [id number] cc: Shaylee Rogers MD EXAMINATION: MM SCREENING DIGITAL BREAST TOMOSYNTHESIS, BILATERAL CLINICAL INFORMATION: Screening. Asymptomatic. COMPARISON: Mammography: No prior imaging is available for comparison. TECHNIQUE: Digital breast mammography with tomosynthesis is performed in both the craniocaudal and mediolateral oblique views along with computer-aided detection (CAD). FINDINGS: There are scattered areas of fibroglandular density (ACR BI-RADS breast composition Category b). There are no significant masses, abnormal calcifications, or other abnormalities. MM/MM tomosynthesis screening BI IMPRESSION: No mammographic evidence of malignancy. ASSESSMENT: BI-RADS BI-RADS 1 - Negative RECOMMENDATION: Routine annual mammography screening. 1 year F/U This examination should not preclude the clinical evaluation of a suspicious palpable abnormality. This patient's information was entered into a reminder system with a target due date for their next mammogram. Electronically signed by: Brittany Gilliland DO 03/16/2024 02:01 PM [facility] Dictated By: Brittany Gilliland DO Signed By: <Electronically signed by Brittany Gilliland DO in OV> 03/16/24 1401 DD/ 1015 TD/TT: 03/04/24 1025 Cloth Feeder: Shaylee Rogers MD IMG BI PROCEDURES Final Result * Hepatitis Panel, General (11/20/2023 9:46 AM EDT) Hepatitis A IgM Nonreactive Nonreactive [facility] Comment:IgM antibodies to PASTRANA V not detected; does not exclude earlyacute or recovered HAV infection. ~Hepatitis B Surface Antibody NONREACTIVE Nonreactive [facility] Comment:Nonreactive: < 8.00 mIU/mL Hepatitis B Core Antibody Nonreactive Nonreactive [facility] Hepatitis C Antibody Nonreactive Nonreactive [facility] Comment:Antibodies to HCV no t detected; does not exclude early acuteHCV infection. Hepatitis B Surface Ag Negative Negative [facility] Blood 11/20/2023 9:46 AM EDT 11/20/2023 11:03 AM EDT us Shaylee Rogers MD LAB BLOOD ORDERABLES Fin al Result [facility] [address] [place] [phone] * HIV-1/2 Antigen and Antibodies, Fourth Generation, with Reflexes (11/20/2023 9:46 AM EDT) Pathologist [facility] HIV AB/AG Nonreactive Nonreactive [facility] Comment:HIV-1 p24 Ag and/or HIV-1/HIV-2 Ab not detected.A test result that is nonreactive does not exclude thepossibility of exposure to or infection with HIV-1 and/orHIV-2. Nonreactive results in this assay for individualswith prior exposure to HIV-1 and/or HIV-2 may be due toantigen and antibody levels that are below the limit ofdetection of this assay.The [employer] HIV Ag/Ab Combo assay result andsupplemental assay results should be interpreted inconjunction with the patient's clinical presentation,history and other laboratory results. If the results areinconsistent with clinical evidence, additional testing issuggested to confirm the result. Blood Venous blood specimen / Unknown 11/20/2023 9:46 AM EDT 11/20/2023 11:03 AM EDT us Shaylee Rogers MD LAB BLOOD ORDERABLES Fin al Result [facility] [address] [place] [address] [phone] from Last 3 Months or Most Recently Relevant to Health Maintenance Insurance [facility] Care Teams Helicopter Crew Chief Relationship Specialty Start Date End Date Shaylee Rogers MD [address] [place] [phone] PCP - General Internal Medicine 11/15/23
== END 2024-10-19 11:21 | disposition home or self-care (01) ==
LOC: HO.US 11:20
PROVIDERS: PCP Internal Medicine; Visit Provider Internal Medicine Hypertension Specialist
DX: N28.1 Cyst of kidney, acquired (principal); Z90.5 Acquired absence of kidney
CPT/HCPCS: 76775

== ENCOUNTER → 2024-10-19 11:21 | Outpatient (BNV) | payer MEDICAID, SELFPAY | PROVIDERS: PCP Internal Medicine; Visit Provider Radiology Diagnostic Radiology | DX: N28.1 Cyst of kidney, acquired (principal); Z90.5 Acquired absence of kidney | CPT/HCPCS: 76775 ==

== ENCOUNTER 2024-10-20 09:26 | Outpatient (REF) | payer MEDICAID, SELFPAY ==
--- OUTSIDE RECORDS SUMMARY | 2024-10-20 09:49 | XMS_ITS | Clinical Summary ---
Author Organization [employer] Address [address] [address] [place] [address] Care Team Providers Care Veterinary Radiologist Name Role Phone Shaylee Rogers MD Primary [...] schedule appointment I gave her information regarding [employer] referral that she has requested previously again we discussed that it is very unlikely that her GLEASON GEAR GENERATOR can help relieve any the case of adhesions, she will get back to me as needed abdominal/pelvic pain Assessment & Plan (01/20/2024 12:04 PM EST): Ro colon pathology, she was referred to GI for colonoscopy. It could also be related to pelvic adhesions, I d/w patient re potential sxs, she will re consult prn uTI , incontinence sxs. A referral to GLE[employer]ON GE[employer]ATOR has been made at her request, she's aware that she needs to bring surgical information to GLEASON GEAR GENERATOR and that sxs are most likely NOT related to GLEASON GEAR GENERATOR cause. Tenosynovitis of right wrist 12/23/2023 Assessment [...] Cyst of left kidney 03/04/2023 [place] (11/15/2023[place] [facility] [place]17[place]23: Left renal complex cyst [...] Type Department Care Team Description 09/17/2024 Telephone [facility] [address] [place] [address] Shaylee Rogers MD November07/22/2024 9:00 AM EDT Office Visit [facility] [address] [place] [address] Shaylee Rogers MD Pelvic pain in female (Primary Dx); Generalized anxiety disorder with panic attacks; Post-traumatic osteoarthritis of left knee; Primary osteoarthritis of both hips 07/22/2024 Travel 07/21/2024 Telephone [facility] [address] [place] [address] Shaylee Rogers MD Chart Prep from Last [...] Procedure Name Priority Date/Time Associated Diagnosis Comments US RENAL COMPLETE Routine 10/19/2024 3:0 4 PM EDT BI MAMMOGRAM SCREENING TOMOSYNTHESIS BILATERAL Routine 03/04/2024 10:15 AM EST Screening mammogram for breast cancer HEPATITIS PANEL, GENERAL Routine 11/20/2023 9:46 AM EDT Hyperlipidemia, unspecified hyperlipidemia type HIV 1/2 ANTIGEN/ANTIBODY, FOURTH GENERATION W/RFL Routine 11/20/2023 9:46 AM EDT Arthritis of left knee from Last 3 Months or Most Recently Relevant to Health Maintenance Results * US Renal Complete (10/19/2024 3:04 PM EDT) Anatomical Region Laterality Modality Kidney Ultrasound 10/19/2024 3:04 PM EDT Narrative 10/19/2024 3:05 PM EDT [address] [address] Ultrasound Report Signed Patient: Vanessa Nash MR#: [id number] [birth year] : 1975 Acct:[id number] Age/Sex: 49 / F ADM Date: 10/19/24 Loc: HO.US Attending Dr: Donald Lazcano MD Ordering Physician: Donald Lazcano MD Date of Service: 10/19/24 Procedure(s): US renal BI Accession Number(s): [id number] cc: Donald Lazcano MD; Shaylee Rogers MD CLINICAL HISTORY: Z90.5 - Acquired absence of kidney US Renal Comparison: US/SR - US KIDNEY BILATERAL - 09/17/23 11:01 EDT Findings: Right kidney is surgically absent Left kidney normal size and echotexture, 11.1 cm length. Interpolar septated cyst measuring 41 mm. No collecting system dilatation of either kidney. Normal color Doppler. IMPRESSION: 1. Status post right nephrectomy. 2. Increased septated left renal cyst, consistent with Bosniak 1 lesion. This document has been electronically signed by: Mony Woodard MD on 10/19/2024 15:04:09 Dictated By: Mony Woodard MD Signed By: <Electronically signed by Mony Woodard MD in OV> 10/19/24 1505 DD/ 1504 TD/TT: 10/19/24 1504 Etcher Enameling: Procedure Note Donotuseinterpreter, Image - 10/19/[address] [address] Ultrasound Report Signed Patient: Edith NashR#: [id number] [birth year] : 1975Acct:[id number] Age/Sex: 49 / FADM Date: 10/19/24 Loc: HO.US Attending Dr: Donald Lazcano MD Ordering Physician: Donald Lazcano MD Date of Service: 10/19/24 Procedure(s): US renal BI Accession Number(s): [id number] cc: Donald Lazcano MD; Shaylee Rogers MD CLINICAL HISTORY: Z90.5 - Acquired absence of kidney US Renal Comparison: US/SR - US KIDNEY BILATERAL - 09/17/23 11:01 EDT Findings: Right kidney is surgically absent Left kidney normal size and echotexture, 11.1 cm length. Interpolar septated cyst measuring 41 mm. No collecting system dilatation of either kidney. Normal color Doppler. IMPRESSION: 1. Status post right nephrectomy. 2. Increased septated left renal cyst, consistent with Bosniak 1 lesion. This document has been electronically signed by: Mony Woodard MD on 10/19/2024 15:04:09 Dictated By: Mony Woodard MD Signed By: <Electronically signed by Mony Woodard MD in OV> 10/19/24 1505 DD/ 1504 TD/TT: 10/19/24 1504 Etcher Enameling: [facility] External Provider IMG US PROCEDURES Final Result * BI Mammogram Screening Tomosynthesis Bilateral (03/04/2024 10:15 AM EST) Anatomical Region Laterality Modality Breast Bilateral Mammography 03/04/2024 10:1 5 AM EST Narrative 03/16/2024 2:04 PM EST [facility] [address] [place] [address] Mammography Report Signed Patient: Vanessa Nash MR#: [id number] [birth year] : 1975 Acct:[id number] Age/Sex: 48 / F ADM Date: 03/04/24 Loc: HO.MAMMO Attending Dr: Shaylee Rogers MD Ordering Physician: Shaylee Rogers MD Results: 1Ne gative Date of Service: 03/04/24 Follow Up: 1 Year From Orig inal Mammogram Procedure(s): MM tomosynthesis screening BI Accession Number(s): [id number] cc: Shaylee Rogers MD EXAMINATION: MM SCREENING [...] by: Brittany Gilliland DO 03/16/2024 02:01 PM [facility] Dictated By: Brittany Gilliland DO Signed By: <Electronically signed by Brittany Gilliland DO in OV> 03/16/24 1401 DD/ 1015 TD/TT: 03/04/24 1025 Etcher Enameling: Procedure Note Donotuseinterpreter, Image - 03/16/2024 [facility] [address] [place] [address] Mammography Report Signed Patient: Keshav Nash#: [id number] [birth year] : 1975Acct:[id number] Age/Sex: 48 / FADM Date: 03/04/24 Loc: [place] Attending Dr: Shaylee Rogers MD Ordering Physician: Shaylee Rogers MDResults: 1Ne gative Date of Service: 03/04/24Follow Up: 1 Year From Orig inal Mammogram Procedure(s): MM tomosynthesis screening BI Accession Number(s): [id number] cc: Shaylee Rogers MD EXAMINATION: MM SCREENING [...] by: Brittany Gilliland DO 03/16/2024 02:01 PM [facility] Dictated By: Brittany Gilliland DO Signed By: <Electronically signed by Brittany Gilliland DO in OV> 03/16/24 1401 DD/ 1015 TD/TT: 03/04/24 1025 Etcher Enameling: Shaylee Rogers MD IMG BI PROCEDURES Final Result * Hepatitis Panel, General (11/20/2023 9:46 AM EDT) Hepatitis A IgM Nonreactive Nonreactive [facility] Comment:IgM antibodies to PASTRANA V not detected; does not exclude earlyacute or recovered HAV infection. ~Hepatitis B Surface Antibody NONREACTIVE Nonreactive [facility] Comment:Nonreactive: < 8.00 mIU/mL Hepatitis B Core Antibody Nonreactive Nonreactive [facility] Hepatitis C Antibody Nonreactive Nonreactive [facility] Comment:Antibodies to HCV no t detected; does not exclude early acuteHCV infection. Hepatitis B Surface Ag Negative Negative [facility] Blood 11/20/2023 9:46 AM EDT 11/20/2023 11:03 AM EDT us Shaylee Rogers MD LAB BLOOD ORDERABLES Fin al Result Performing Organization Address [facility] Co de Phone Number [facility] [address] [place] [address] [phone] HIV-1/2 Antigen and Antibodies, Fourth Generation, with Reflexes (11/20/2023 9:46 AM EDT) HIV AB/AG Nonreactive Nonreactive [facility] Comment:HIV-1 p24 Ag and/or HIV-1/HIV-2 Ab not detected.A test result that is nonreactive does not exclude thepossibility of exposure to or infection with HIV-1 and/orHIV-2. Nonreactive results in this assay for individualswith prior exposure to HIV-1 and/or HIV-2 may be due toantigen and antibody levels that are below the limit ofdetection of this assay.The Joppel HIV Ag/Ab Combo assay result andsupplemental assay results should be interpreted inconjunction with the patient's clinical presentation,history and other laboratory results. If the results areinconsistent with clinical evidence, additional testing issuggested to confirm the result. Blood Venous blood specimen / Unknown 11/20/2023 9:46 AM EDT 11/20/2023 11:03 AM EDT us Shaylee Rogers MD LAB BLOOD ORDERABLES Fin al Result Performing Organization Address [facility] Co de Phone Number [facility] [address] [place] [phone] from Last 3 Months or Most Recently Relevant to Health Maintenance Insurance * Guarantor: Saad Vanessa Account Type Relation to Patient Date of Phone Billing Address Personal/Family Self 1975 [address] [place] [address] [facility] Care Teams Veterinary Radiologist Relationship Specialty Start Date End Date Shaylee Rogers MD [address] [place] [phone] PCP - General Internal Medicine 11/15/23
[2024-10-20 11:49] LABS: Cholesterol 190 mg/dL (<200); HDL Cholesterol 56 mg/dL (>40); Triglycerides 186 mg/dL (<150)
[2024-10-20 11:56] LABS: Reflex LDLD? No
[2024-10-20 11:57] LABS: Appearance Urine Cloudy; Glucose Urine UA Negative (Negative); PH 5.5 (5.0-9.0); Specific Gravity - Urine >= 1.030 (1.005-1.025); UMIC TRIGGER UA YES
[2024-10-20 12:05] LABS: Alanine Aminotransferase 30 U/L (0-31); Albumin Level 4.1 g/dL (3.5-5.0); Alkaline Phosphatase 100 U/L (39-117); Anion Gap 10 (12-20); Aspartate Amino Transferase 27 U/L (5-31); Blood Urea Nitrogen 9 mg/dL (9-16); Calcium 9.0 mg/dL (8.4-10.2); Carbon Dioxide 29 mmol/L (22-29); Chloride 106 mmol/L (96-108); Estimated Glomerular Filt Rate > 60; Potassium 3.8 mmol/L (3.3-5.1); Sodium 141 mmol/L (135-145); Total Protein 6.7 g/dL (6.5-8.0)
== END 2024-10-20 09:27 | disposition home or self-care (01) ==
LOC: HO.HHCL 09:26
PROVIDERS: PCP Internal Medicine; Visit Provider Internal Medicine Hypertension Specialist
DX: N28.1 Cyst of kidney, acquired (principal); E78.2 Mixed hyperlipidemia; R31.9 Hematuria, unspecified; Z90.5 Acquired absence of kidney
CPT/HCPCS: 36415; 80048; 80061; 80076; 81001; 88112

== ENCOUNTER 2024-11-02 09:48 | Outpatient (AMB) | payer MEDICAID, SELFPAY ==
[2024-11-02 09:50] VITALS: BP 100/70; PULSE 80; O2SAT 97; BMI 31.6
--- NOTE | 2024-11-02 09:50 | HO.NEPHOV_ITS ---
Vital Signs 11/02/24 09:50 Height 5 ft 6 in Weight 196 lb BMI 31.6 BP 100/70 Blood Pressure Location Lt brachial Position Sitting Pulse 80 Pulse Source Pulse Oximeter Pulse Oximetry (%) 97 Oxygen Delivery Method Room Air Intake Visit Reasons: Renal cyst/ Conf Dining Manager Required: No Accompanied by: Self / Same As Patient Allergies No Known Allergies Allergy (Verified 11/02/24 09:53) Medication List - Last Reconciled 11/02/24 by Donald Lazcano MD acetaminophen 500 - 1,000 mg PO Q6H PRN lidocaine 5% topical meloxicam 15 mg PO DAILY rosuvastatin 20 mg PO DAILY venlafaxine ER 37.5 mg PO QAM HPI Comments Details: Vanessa is a pleasant 48-year-old woman who has been enjoying reasonably good health. 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 Thirteen years after transplantation stepfather . Transplant surgery to place in [place]. Few months ago she was in [place] where she was told about a renal cyst. She was asked to monitor this. She has no further information. No imaging is available. She has been referred for evaluation of renal cyst and CKD. The recent blood work 02/04/2023 showed a normal serum creatinine with a creatinine clearance of 99 mL/minute. She has been having vague chest pains. She was seen by Cardiology and s/p CT s can 11/02/24 49-year-old female presenting for follow-up regarding a solitary kidney and benign renal cyst. She has osteoarthritis in her leg, back, and hip, related to prior knee surgery with hardware placement. Pain management is limited due to side effects of medications. The patient has a solitary kidney with stable function and a benign renal cyst confirmed by recent imaging. The cyst is Bosniak type 1, unchanged from last year. She experiences nocturia, managed by reducing evening fluid intake. [facility] Medical History (Updated 12/31/23 @ 10:41 by Raji Larios) Hyperlipidemia Anxiety Surgical History Hx of kidney removal Hx of knee surgery Hx of hysterectomy Family History Father CAD (coronary artery disease) Mother CAD (coronary artery disease) Social History Alcohol intake: current Alcohol intake frequency: holidays/special occasions only Patient Tobacco Use Status: Current someday Tobacco user Tobacco use type: Cigar Current occupational status: unemployed Current occupation: right hand dominant Physical Exam Vital Signs: Last Vital Signs Pulse 80 11/02/24 09:50 BP 100/70 11/02/24 09:50 Pulse Ox 97 11/02/24 09:50 Oxygen Delivery Method Room Air 11/02/24 09:50 BMI result Body Mass Index 31.6 Const General: comfortable; No acute distress Orientation/consciousness: patient oriented x3 Eyes General: appearance normal, both eyes and all related structures Visual Reyes: normal visual reyes by confrontation Neck Neck: Yes supple and Yes no JVD Resp Effort & Inspection: normal respiratory effort and respiratory effort not decreased Auscultation: rhonchi Cardio Palpation: no palpable S3 and no palpable S4 Heart sounds: no rubs GI Inspection: Yes normal to inspection Palpation (GI): Soft to palpation Percussion: Yes normal to percussion Auscultation: normal bowel sounds General: Yes no CVA tenderness Back/Spine/Pelvis Back: no CVA tenderness Skin General skin exam: no petechiae and no purpura Neuro General: patient oriented x3 and no focal motor deficits Extrem General: No clubbing and No edema Results Reviewed Nephrology Results: Hgb, (12.0-16.0) 14.5 g/dl 11/20/23 WBC, (4.8-10.8) 6.5 X10*3/uL 11/20/23 Plt Count, (160-400) 293 X10*3/uL 11/20/23 Sodium, (135-145) 141 mmol/L 10/20/24 Potassium, (3.3-5.1) 3.8 mmol/L 10/20/24 Chloride, (96-108) 106 mmol/L 10/20/24 Carbon Dioxide, (22-29) 29 mmol/L 10/20/24 BUN, (9-16) 9 mg/dL 10/20/24 Creatinine, (0.5-1.4) 0.82 mg/dL 10/20/24 Calcium, (8.4-10.2) 9.0 mg/dL Δ 08/05/25 Urine Protein, (Neg-Trace) 30 (1+) mg/dL H 10/20/24 Renal US 10/19/24 Assessment & Plan Assessment & Plan (1) Renal cyst: Code(s): N28.1 - Cyst of kidney, acquired Category: Medical (2) Solitary kidney, acquired: Code(s): Z90.5 - Acquired absence of kidney Category: Medical Plan Vanessa has a solitary kidney. She has had normal renal function based on labs in 02/04/2023. Corresponding urine studies were unremarkable without any significant protein or blood. History of renal cyst. renal ultrasonogram shows Bosnik Type 1 cyst ? mild complexity Follow up scan in 1 yr shows Bosniack Type 1 measuring 41 mm Shall watch At this time blood pressure is acceptable. Continue to avoid nephrotoxic agents. Encouraged her to stay on low-sodium diet and increase p.o. fluid intake. Avoid NSAIDS Orders: Orders Creatinine Urine 1 Year N28.1 - Cyst of kidney, acquired, Z90.5 - Acquired absence of kidney Total Protein Urine Random 1 Year N28.1 - Cyst of kidney, acquired, Z90.5 - Acquired absence of kidney Basic Metabolic Panel 1 Year N28.1 - Cyst of kidney, acquired, Z90.5 - Acquired absence of kidney UA and rflx microscopic 1 Year N28.1 - Cyst of kidney, acquired, Z90.5 - Acquired absence of kidney Coding Level of Care Code Est Pt Level 4 (13037) Diagnoses Renal cyst N28.1 Solitary kidney, acquired Z90.5
--- OUTSIDE RECORDS SUMMARY | 2024-11-02 10:30 | XMS_ITS | Clinical Summary ---
Author Organization [employer] Address [address] [facility] [address] [place] [address] Care Team Providers Care Brickmason Supervisor Name Role Phone Amy Rogers MD Primary Care Provider + Allergies [...] schedule appointment I gave her information regarding [employer] referral that she has requested previously again we discussed that it is very unlikely that her [employer] MECH[employer] can help relieve any the case of adhesions, she will get back to me as needed abdominal/pelvic pain Assessment & Plan (01/20/2024 12:04 PM EST): Ro colon pathology, she was referred to GI for colonoscopy. It could also be related to pelvic adhesions, I d/w patient re potential sxs, she will re consult prn uTI , incontinence sxs. 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 Tenosynovitis of right wrist 12/23/2023 Assessment [...] HIP WRITTEN ON 11/15/2023 2:53 PM BY AMY ROGERS MD R/o OA vs pain radiated [...] accordingly. Cyst of left kidney 03/04/2023 Overview (10/21/2024): [facility] Renal US 09/17/23: Left renal complex cyst on lower pole, with septations and internal echoes but no vascularity, measures 3.2 x 3.4 x 3.3 cm. Absent right kidney. [facility] renal US on 11/19/2024 showed 4 cm septated left renal cyst/Bosniak 1 Assessment & Plan (11/15/2023 1:30 PM EDT): She has been referred to Nephrology already, will obtain BMP. Obtain previous US from previous PCP. Encounters * This document contains information received from the source organization and may not represent a complete record from that organization. Date Type Department Care Team Description 10/21/2024 Results Follow-Up [facility] [address] [place] [address] Amy Rogers MD Hepatic Function Panel, Lipid Panel with Reflex to Direct LDL 10/21/2024 Results Follow-Up [facility] [address], [place] [phone] Amy Rogers MD US Renal Complete 09/17/2024 Telephone [facility] [address], [place] [phone] Amy Rogers MD November recall from Last 3 Months Immunizations Immunization Administration [...] 07/22/2024 8:59 AM EDT Plan of Treatment Upcoming Encounters Date Type Department Care Team (Late st Contact Info) Description 12/31/2024 10:30 AM EDT Office Visit [facility] [address] [place] [phone] Amy Rogers MD [address] [place] [address] Health Maintenance Due Date Last Done Comments CT Colonography 1975 Colonoscopy 1975 Colorectal Cancer Screening 1975 FIT DNA/Cologuard 1975 FIT 1975 FOBT 1975 Sigmoidoscopy 1975 Disability Screening 1975 Family Planning (PISQ) 1992 DTaP/Tdap/Td Vaccines (1 - Tdap) 1996 COVID-19 Vaccine (1 - 2023-2 5 season) 2023 Hepatitis B [...] Procedure Name Priority Date/Time Associated Diagnosis Comments URINALYSIS, COMPLETE Routine 10/20/2024 10:53 AM EDT CYTOPATH-CELL ENHANCED Routine 10/20/2024 10:52 AM EDT BASIC METABOLIC PANEL Routine 10/20/2024 9:30 AM EDT LIPID PANEL WITH REFLEX TO DIRECT LDL Routine 10/20/2024 9:30 AM EDT Mixed hyperlipidemia HEPATIC FUNCTION PANEL Routine 10/20/2024 9:30 AM EDT Mixed hyperlipidemia US RENAL COMPLETE Routine 10/19/2024 3:0 4 [...] Recently Relevant to Health Maintenance Results * (ABNORMAL) Urinalysis Complete (10/20/2024 10:53 AM EDT) Color Urine Dark Yellow [facility] Appearance Urine Cloudy [facility] PH 5.5 5.0 - 9.0 [facility] Glucose Urine UA Negative Negative mg/dL [facility] Urine Blood Negative Negative [facility] Specific [place] - Urine >=1.030(H) 1.005 - 1.025 [facility] Urine Protein 30 (1+)(A) Neg-Trace mg/dL [facility] Urine Ketones Trace Negative mg/dL [facility] Nitrite Urine Negative Negative [facility] Leukocyte Esterase Urine Trace(A) Negative [facility] RBC Urine 0-2 0 - 2 /HPF [facility] Urine WBC 11-20(A) 0 - 5 /HPF [facility] Urine Squamous Epithelial Cell >20 0 - 2 /HPF [facility] Urine Bacteria 4+ None Seen [facility] Hyaline Casts, Urine 3-5 0 - 2 /LPF [facility] 10/20/2024 10:5 3 AM EDT 10/20/2024 11:36 AM EDT us Generic External Data Provider LAB URINE ORDERAB LES Final Result [facility] [address] [place] [phone] * Cytopath-cell enhanced (10/20/2024 10:52 AM EDT) 10/20/2024 10:5 2 AM EDT 10/21/2024 8:50 AM EDT Narrative [facility] - 10/21/2024 3:01 PM EDT ----- ------- Name: Colon,Vanessa Age/Sex: 49/F : 1975 Unit#: [id number] Attend Dr: Donald Lazcano MD Re10/20/24 Status: DEP REF Location: HO.[facility]CL Disch: ----- ------- SPEC : [id number] RECD: 10/21/240850 STATUS: CEDRICK DONOHUE NUM: [id number] JJ: 10/20/24-1052 [facility] DR: Donald Lazcano MD ENTERED: 10/21/24-1016 SP TYPE: Cytology OT DR: Amy Rogers MD ORDERED: Cyto-enhanced Diagnosis Urine: Negative for high-grade urothelial carcinoma. Comment: Examination of a monolayer preparation slide shows many benign superficial squamous cells with bacteria, occasional benign urothelial cells, and few inflammatory cells. Clinical History Hematuria, unspecified, cyst of kidney, acquired, acquired absence of kidney Material Received Urine Gross Description Received is 8 cc of cloudy yellow/hebert fluid from which a ThinPrep slide is prepared. IHC S/NG Disclaimer NOTE: Unless otherwise stated, all tissue is formalin-fixed and paraffin-embedded. Some or all of the immunohistochemical tests reported herein may have been developed and their performance characteristics determined by [facility]. They have not been cleared or approved by the U.S. Food and Drug Administration (FDA). However, the FDA has determined that such clearance or approval is not necessary. This laboratory is certified under the Clinical Laboratory Improvement Amendments of 1988 (CLIA) as qualified to perform high complexity clinical laboratory testing. Copies To: Donald Lazcano MD [facility] [address] [place] [address] Dr [address] [place] [address] [email or web address] Amy Rogers MD [address] [address] CONTINUED ON NEXT PAGE ----- ------- Name: Vanessa Nash Age/Sex: 49/F : 1975 Unit#: [id number] Attend Dr: Donald Lazcano MD Re10/20/24 Status: DEP REF Location: [facility] Disch: ----- ------- SPEC : [id number] RECD: 10/21/24 STATUS: CEDRICK DONOHUE NUM: [id number] JJ: 10/20/[address] [facility] [address]: Donald Lazcano MD ENTERED: 10/21/24 SP TYPE: Cytology OTHR DR: Amy Rogers MD ORDERED: Cyto-enhanced ----- ------- Signed (signature on file) Sera Caryn 10/21/24 1501 ----- ------- END OF REPORT us Generic External Data Provider LAB CYTOLOGY [place] Final Result [facility] [address] [place] [phone] * (ABNORMAL) Lipid Panel with Reflex to Direct LDL (10/20/2024 9:30 AM EDT) Triglycerides 186(H) <150 mg/dL [facility] Comment:Desirable Triglyceri de: less than 150 mg/dLBorderline High Triglyceride 150-199 mg/dLHigh Triglyceride: 200-499 mg/dLVery High Triglyceride: greater than or equal to 5OO mg/dL Cholesterol 190 <200 mg/dL [facility] Comment:Desirable Cholestero l: less than 200 mg/dLBorderline High Cholesterol: 200-239 mg/dLHigh Cholesterol: greater than 239 mg/dL LDL Cholesterol Calculated 97 <100 mg/dL [facility] Comment:Desirable LDL: less than 100 mg/dLNear Optimal/Above Optimal LDL: 110- 129 mg/dLBorderline High LDL: 130-159 mg/dLHigh LDL: 160-189 mg/dLVery High LDL: greater than or equal to 190 mg/dL HDL Cholesterol 56 >40 mg/dL [facility] Comment:Desirable HDL: great er than 40 mg/dL Note: This HDL assay may give artificially low results in patients with liver disease. Blood 10/20/2024 9:30 AM EDT 10/20/2024 11:13 AM EDT us Amy Rogers MD LAB BLOOD ORDERABLES Fin al Result [facility] [address] [place] [phone] * Hepatic Function Panel (10/20/2024 9:30 AM EDT) Bilirubin, Total 0.3 0.0 - 1.0 mg/dL [facility] Bilirubin, Direct 0.1 0.0 - 0.5 mg/dL [facility] Aspartate Amino Transferase 27 5 - 31 U/L [facility] Alanine Aminotransferase 30 0 - 31 U/L [facility] Total Protein 6.7 6.5 - 8.0 g/dL [facility] Albumin Level 4.1 3.5 - 5.0 g/dL [facility] Alkaline Phosphatase 100 39 - 117 U/L [facility] Blood Venous blood specimen / Unknown 10/20/2024 9:30 AM EDT 10/20/2024 11:13 AM EDT us Amy Rogers MD LAB BLOOD ORDERABLES Fin al Result Performing Organization Address [facility] Co de Phone Number [facility] [address] [place] [phone] * (ABNORMAL) Basic Metabolic Panel (10/20/2024 9:30 AM EDT) Sodium 141 135 - 145 mmol/L [facility] Potassium 3.8 3.3 - 5.1 mmol/L [facility] Chloride 106 96 - 108 mmol/L [facility] Carbon Dioxide 29 22 - 29 mmol/L [facility] Anion Gap 10(L) 12 - 20 [facility] Urea Nitrogen (BUN) 9 9 - 16 mg/dL [facility] Creatinine, Serum 0.82 0.5 - 1.4 mg/dL [facility] Estimated Glomerular Filt Rate >60 [facility] Comment:Chronic Kidney Disea se: Estimated GFR < 60 mL/min/1.58k8Enbchd Kidney Disease: Estimated GFR < 15 mL/min/1.73m2 Glucose 85 60 - 115 mg/dL [facility] Calcium 9.0 8.4 - 10.2 mg/dL [facility] 10/20/2024 9:30 AM EDT 10/20/2024 11:13 AM EDT us Generic External Data Provider LAB BLOOD ORDERAB LES Final Result Performing Organization Address [facility] Co de Phone Number [facility] [address] [place] [phone] * US Renal Complete (10/19/2024 3:04 PM EDT) Anatomical Region Laterality Modality Kidney Ultrasound 10/19/2024 3:04 PM EDT Narrative 10/19/2024 3:05 PM EDT [address] [address] Ultrasound Report Signed Patient: Vanessa Nash MR#: [id number] 05 : 1975 Acct:[id number] Age/Sex: 49 / F ADM Date: 10/19/24 Loc: .US Attending Dr: Donald Lazcano MD Ordering Physician: Donald Lazcano MD Date of Service: 10/19/24 Procedure(s): US renal BI Accession Number(s): [id number] cc: Donald Lazcano MD; Amy Rogers MD CLINICAL HISTORY: Z90.5 - Acquired [...] 10/19/24 1505 DD/ 1504 TD/TT: 10/19/24 1504 Vending Manager: Procedure Note Donotuseinterpreter, Image - 10/19/[address] [address] Ultrasound Report Signed Patient: Keshav Nash#: [id number] [birth year] : 1975Acct:[id number] Age/Sex: 49 / FADM Date: 10/19/24 Loc: .US Attending Dr: Donald Lazcano MD Ordering Physician: Donald Lazcano MD Date of Service: 10/19/24 Procedure(s): US renal BI Accession Number(s): [id number] cc: Donald Lazcano MD; Amy Rogers MD CLINICAL HISTORY: Z90.5 - Acquired [...] OV> 10/19/24 1505 DD/ 1504 TD/TT: 10/19/24 150 Vending Manager: [facility] External Provider IMG US PROCEDURES Final Result * BI Mammogram Screening Tomosynthesis Bilateral (03/04/2024 10:15 AM EST) Anatomical Region Laterality Modality Breast Bilateral Mammography 03/04/2024 10:1 5 AM EST Narrative 03/16/2024 2:04 PM EST [address] [place] [address] Mammography Report Signed Patient: Vanessa Nash MR#: [id number] 05 : 1975 Acct:[id number] Age/Sex: 48 / F ADM Date: 03/04/24 Loc: HO.MAMMO Attending Dr: Amy Rogers MD Ordering Physician: Amy Rogers MD Results: 1Ne gative Date of Service: 03/04/24 Follow Up: 1 Year From Orig inal Mammogram Procedure(s): MM tomosynthesis screening BI Accession Number(s): [id number] cc: Amy Rogers MD EXAMINATION: MM SCREENING DIGITAL BREAST [...] 03/16/24 1401 DD/ 1015 TD/TT: 03/04/24 1025 Vending Manager: Procedure Note Donotuseinterpreter, Image - [facility] [address] [place] [address] Mammography Report Signed Patient: Keshav Nash#: [id number] [birth year] : 1975Acct:[id number] Age/Sex: 48 / FADM Date: 03/04/24 Loc: HO.MAMMO Attending Dr: Amy Rogers MD Ordering Physician: Amy Rogers MDResults: 1Ne gative Date of Service: 03/04/24Follow Up: 1 Year From Orig ina Mammogram Procedure(s): MM tomosynthesis screening BI Accession Number(s): [id number] cc: Amy Rogers MD EXAMINATION: MM SCREENING DIGITAL BREAST [...] by: Brittany Gilliland DO 03/16/2024 02:01 PM [facility] Dictated By: Brittany Gilliland DO Signed By: <Electronically signed by Brittany Gilliland DO in OV> 03/16/24 1401 DD/ 1015 TD/TT: 03/04/24 1025 Vending Manager: us Amy Rogers MD IMG BI PROCEDURES Final Result * Hepatitis Panel, General (11/20/2023 9:46 AM EDT) Hepatitis A IgM Nonreactive Nonreactive [facility] Comment:IgM antibodies to PASTRANA V not detected; does not exclude earlyacute or recovered HAV infection. ~Hepatitis B Surface Antibody NONREACTIVE Nonreactive [facility] Comment:Nonreactive: < 8.00 mIU/mL Hepatitis B Core Antibody Nonreactive Nonreactive [facility] Hepatitis C Antibody Nonreactive Nonreactive [facility] Comment:Antibodies to HCV no t detected; does not exclude early acuteHCV infection. Hepatitis B Surface Ag Negative Negative [facility] Blood 11/20/2023 9:46 AM EDT 11/20/2023 11:03 AM EDT us Amy Rogers MD LAB BLOOD ORDERABLES Fin al Result [facility] [address] [place] [phone] * HIV-1/2 Antigen and Antibodies, Fourth Generation, with Reflexes (11/20/2023 9:46 AM EDT) HIV AB/AG Nonreactive Nonreactive [facility] Comment:HIV-1 p24 Ag and/or HIV-1/HIV-2 Ab not detected.A test result that is nonreactive does not exclude thepossibility of exposure to or infection with HIV-1 and/orHIV-2. Nonreactive results in this assay for individualswith prior exposure to HIV-1 and/or HIV-2 may be due toantigen and antibody levels that are below the limit ofdetection of this assay.[employer] HIV Ag/Ab Combo assay result andsupplemental assay results should be interpreted inconjunction with the patient's clinical presentation,history and other laboratory results. If the results areinconsistent with clinical evidence, additional testing issuggested to confirm the result. Blood Venous blood specimen / Unknown 11/20/2023 9:46 AM EDT 11/20/2023 11:03 AM EDT Amy Rogers MD LAB BLOOD ORDERABLES Fin al Result [facility] [address] [place] [phone] from Last 3 Months or Most Recently Relevant to Health Maintenance Insurance [facility] Care Teams Brickmason Supervisor Relationship Specialty Start Date End Date Amy Rogers MD [address] [place] [phone] PCP - General Internal Medicine 11/15/23
== END 2024-11-02 10:03 | disposition home or self-care (01) ==
LOC: HO.HKA 09:49
PROVIDERS: PCP Emergency Medicine; Visit Provider Internal Medicine Hypertension Specialist
DX: N28.1 Cyst of kidney, acquired (principal); Z90.5 Acquired absence of kidney
CPT/HCPCS: 99214

== ENCOUNTER → 2024-11-02 09:48 | Outpatient (BNVA) | payer MEDICAID, SELFPAY | PROVIDERS: PCP Emergency Medicine; Visit Provider Internal Medicine Hypertension Specialist | DX: N28.1 Cyst of kidney, acquired (principal); Z90.5 Acquired absence of kidney | CPT/HCPCS: 99212 ==

== ENCOUNTER 2024-11-30 08:05 | Emergency (ER) | payer MEDICAID, SELFPAY ==
--- NOTE | ~2024-11-30 | XR_ITS ---
EXAMINATION: XR WRIST, RIGHT CLINICAL INFORMATION: pain COMPARISON: None available. TECHNIQUE: PA, lateral, oblique, and scaphoid views of the right wrist. FINDINGS: The bones and soft tissues are normal. No fracture. Alignment is anatomic with normal joint spaces. No erosions or abnormal soft tissue calcifications. XR/XR wrist RT min 3V IMPRESSION: Normal right wrist. Electronically signed by: Gus Hernandez MD 11/30/2024 09:11 AM EDT
--- NOTE | ~2024-11-30 | XR_ITS ---
EXAMINATION: XR KNEE, LEFT CLINICAL INFORMATION: pain COMPARISON: 12/25/2023. TECHNIQUE: Four views of the left knee. FINDINGS: No fracture, dislocation, or suspicious bone lesion. There is normal alignment. There are 3 transverse compression screws in the proximal tibia metaphysis, fixating a prior tibial plateau fracture. The fracture appears healed. The hardware is well seated. There is no acute fracture. Persistent mild depression of the medial tibial plateau is present with mild joint space narrowing of all 3 compartments. There is a moderate to large sized suprapatellar joint effusion. XR/XR knee LT 4V IMPRESSION: 1. No acute bony abnormalities of the left knee. 2. Fixated and healed previous tibial plateau fracture. 3. Joint effusion. Electronically signed by: Gus Hernandez MD 11/30/2024 09:13 AM EDT
[2024-11-30 08:11] VITALS: BP 129/76; PULSE 89; RESP 16; TEMP 35.8; O2SAT 97; BMI 31.5
--- NOTE | 2024-11-30 08:39 | ED.EXTPRO ---
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 Patient reports that several months ago she had fallen and injured her right wrist. She states that she was seen and had an injection placed in her wrist at that time. She states that over the last week she has had worsening pain of her right wrist, without any injury or trauma. Patient reports that the pain worsens with palpation with range of motion. No numbness or tingling. 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 She states that she went to an urgent care, did not have any x-rays, was told to wear wrist splint, and apply heat which did not provide her with any relief. Denies taking any medications at home to treat her current pain. She also states that she has had increased left knee pain, she states that she had broken her femur and had several screws placed in [place], she did not have physical therapy afterwards. She denies any fevers or chills. No other complaints or concerns at this time. MD Complaint: extremity pain and joint pain Onset (ago): week(s) Pain Consistency: constant Location: left, right, upper extremity and lower extremity Quality: aching Radiation: none Relieving factors: nothing Exacerbating factors: nothing Associated symptoms: denies other symptoms Related Data Home Medications ?Medication ?Instructions ?Recorded ?Confirmed venlafaxine 37.5 mg 37.5 mg PO QAM 06/03/23 11/02/24 capsule,extended release 24 hr acetaminophen 500 mg tablet 500 - 1,000 mg PO Q6H PRN fever 12/10/23 11/02/24 lidocaine 5 % topical ointment topical mild pain 11/02/24 11/02/24 meloxicam 15 mg tablet 15 mg PO DAILY 11/02/24 11/02/24 rosuvastatin 20 mg tablet 20 mg PO DAILY 11/02/24 11/02/24 Previous Rx's ?Medication ?Instructions ?Recorded acetaminophen 500 mg tablet 1,000 mg (2 x 500 mg) PO Q8H PRN 11/30/24 (Tylenol Extra Strength) pain #30 tabs Allergies Allergy/AdvReac Type Severity Reaction Status Date / Time No Known Allergies Allergy Verified 11/30/24 08:17 Review of Systems Review of Systems: Constitutional : No Fever, No Chills ENT/Mouth : No sore throat, No Rhinorrhea Eyes: No Eye Pain, No Swelling, No Redness Cardiovascular : No Chest Pain, No SOB Respiratory : No Cough, No Sputum Gastrointestinal : No Nausea, No Vomiting, No Diarrhea, No abdominal Pain Genitourinary : No Dysuria, No Hematuria Musculoskeletal : + joint pain, No Myalgias, No Joint Swelling Skin : No Skin Lesions Neuro : No Weakness, No Numbness, No Headache All other systems reviewed and are negative Yes all other systems are reviewed and are negative Constitutional: Constitutional: Reports as per HPI [facility] Past Medical History Medical History (Updated 11/30/24 @ 09:42 by VENUS Hernandez) Hyperlipidemia Anxiety Surgical History Hx of kidney removal Hx of knee surgery Hx of hysterectomy Family History Family History Father CAD (coronary artery disease) Mother CAD (coronary artery disease) Social History Social History Alcohol intake: current Alcohol intake frequency: holidays/special occasions only Patient Tobacco Use Status: Current someday Tobacco user Tobacco use type: Cigar Advance Directives: No Advance Directives Information Provided: No Current occupational status: unemployed Current occupation: right hand dominant Physical Exam Vital Signs: Vital Signs: Last Vital Signs Temp 96.5 F L 11/30/24 08:11 Pulse 89 11/30/24 08:11 Resp 16 11/30/24 08:11 BP 129/76 11/30/24 08:11 Pulse Ox 97 11/30/24 08:11 O2 Del Method Room Air 11/30/24 08:11 BMI result Body Mass Index 31.5 Const: General: cooperative, comfortable and no acute distress Orientation/consciousness: patient oriented x3 Limitations: no limitations HEENT: Head: Yes normal to inspection, Yes normocephalic and Yes atraumatic Ears: hearing grossly normal bilaterally General nose exam: Normal external nose present Face and sinus: Yes normal facial exam Mouth: Normal oral and palatal mucosa present, oropharynx normal and moist mucous membranes Throat: Yes posterior oropharynx normal Eyes: General: appearance normal, both eyes and all related structures Eyelids: Yes eyelids normal Conjunctivae: conjunctivae normal Sclerae: sclerae normal Pupils: Equal, round and reactive pupils present EOM: EOMs intact bilaterally Neck: Neck: Yes normal visual inspection, Yes full ROM and Yes no lymphadenopathy Lymphatic: no lymphadenopathy noted Chest: Chest palpation & inspection: normal inspection of the chest Resp: Effort & Inspection: normal respiratory effort and able to speak in complete sentences Cardio: Rate: regular rate Rhythm: regular rhythm GI: Inspection: Yes normal to inspection Skin: General skin exam: no rashes or lesions noted Trauma: no lacerations or abrasions Wounds: no wounds Neuro: General: patient oriented x3 and moves all extremities Cranial nerves: Yes Equal, round and reactive pupils present Extrem: Other: Right hand and wrist with no obvious bony deformity or swelling. No overlying erythema or warmth. Patient has tenderness palpation along the proximal metacarpal bone of the 1st digit, unable to oppose thumb to 5th digit secondary to pain, able to oppose to all other digits without difficulty. Strong radial pulse. Capillary refill less than 2 seconds. Sensation intact. Left knee with no obvious bony deformity, she does have moderate edema noted on the medial aspect of the left knee with tenderness palpation along the medial joint line, patient does have pain with varus and valgus strain, no joint laxity appreciated. Full ROM, no erythema or warmth noted to the joint. Negative anterior-posterior drawer test. DP pulse are 2+. Distal sensation circulation intact. No calf tenderness. No pitting edema noted bilaterally. General: Yes normal to inspection Right upper extremity: normal to inspection Left upper extremity: normal to inspection Right lower extremity: normal to inspection Left lower extremity: normal to inspection Medical Decision Making Medical Decision Making MDM Narrative: This is a 49-year-old female, with a past medical history of hyperlipidemia and solitary kidney, who presents emergency department with complaints of right wrist pain for the last week. She also reports that she has had some left knee pain as well, chronic however worsening over the last several months. She had surgery in [place] 5 years ago, has not been seen by an orthopedic here. On arrival, vital signs within normal limits. She is ambulatory with steady gait, will obtain x-rays of the right wrist, and left knee to rule out any bony abnormalities. Differential diagnoses include fracture, contusion, ligamentous injury, sprain, strain, arthritis. 9:43 AM 11/30/2024 (Tiffani Gillis PA-C): X-rays returned, patient does have a joint effusion noted to her left knee, no acute bony abnormalities of the left knee, there is a fixated and healed previous tibial plateau fracture. Wrist x-ray was unremarkable. Discussed findings with patient. Stressed the importance of following up with orthopedics. Given strict return precautions. Patient understands and agrees with plan. Patient stable for discharge. Differential Diagnosis Differential Diagnoses: The differential diagnosis associated with the presentation includes See above Radiology Impression Discussion of test interpretation with radiology: I have reviewed the radiologist's reading. Radiologist Impression: [place] [address] XRay Report Signed Patient: Vanessa Nash MR#: [id number] : 1975 Acct:[id number] Age/Sex: 49 / F ADM Date: 11/30/24 Loc: HO.ED Attending Dr: Ordering Physician: Tiffani Gillis Date of Service: 11/30/24 Procedure(s): XR knee LT 4V Accession Number(s): [id number] cc: [facility]; Tiffani Gillis~ Reason for Exam: pain EXAMINATION: XR KNEE, LEFT CLINICAL INFORMATION: pain COMPARISON: 12/25/2023. TECHNIQUE: Four views of the left knee. FINDINGS: No fracture, dislocation, or suspicious bone lesion. There is normal alignment. There are 3 transverse compression screws in the proximal tibia metaphysis, fixating a prior tibial plateau fracture. The fracture appears healed. The hardware is well seated. There is no acute fracture. Persistent mild depression of the medial tibial plateau is present with mild joint space narrowing of all 3 compartments. There is a moderate to large sized suprapatellar joint effusion. XR/XR knee LT 4V IMPRESSION: 1. No acute bony abnormalities of the left knee. 2. Fixated and healed previous tibial plateau fracture. 3. Joint effusion. Electronically signed by: Gus Hernandez MD 11/30/2024 09:13 AM EDT RP Dictated By: Gus Hernandez MD COMPARISON: None available. TECHNIQUE: PA, lateral, oblique, and scaphoid views of the right wrist. FINDINGS: The bones and soft tissues are normal. No fracture. Alignment is anatomic with normal joint spaces. No erosions or abnormal soft tissue calcifications. XR/XR wrist RT min 3V IMPRESSION: Normal right wrist. Electronically signed by: Gus Hernandez MD 11/30/2024 09:11 AM EDT RP Dictated By: Gus Hernandez MD Discharge Plan Discharge Clinical Impression: Wrist pain, right, Knee pain, left Patient Disposition: Home, Self-Care Instructions: Knee Pain (ED), Arthralgia (ED) Additional Instructions: You were seen in the emergency department due to right wrist pain and left knee pain. Your right wrist x-ray does not show any bony abnormalities, as discussed xrays does not show any ligament or tendons, therefore I want you to follow-up with the relationship specialist as there is a hand surgeon who you can see in regards to this. Continue using wrist splint that the urgent care provided you as this can provide you with support and pain relief. Your left knee x-ray does show some swelling noted in your left knee, and want you to follow-up with the relationship specialist regarding this. Please rest, ice, elevate and use Sanjiv wrap for comfort. You may take Tylenol a 1000 mg every 8 hours as needed for pain. If any new or worsening symptoms occur including but not limited to worsening pain, high fevers, chills, inability to bend your knee, increased redness to your knee or decreased range of motion of your wrist/redness of your wrist, please return for re-evaluation. I hope you feel better soon! Prescriptions: New acetaminophen [Tylenol Extra Strength] 500 mg tablet 1,000 mg PO Q8H PRN (Reason: pain) Qty: 30 0RF No Action acetaminophen 500 mg tablet 500 - 1,000 mg PO Q6H PRN (Reason: fever) venlafaxine 37.5 mg capsule,extended release 24hr 37.5 mg PO QAM meloxicam 15 mg tablet 15 mg PO DAILY rosuvastatin 20 mg tablet 20 mg PO DAILY lidocaine 5 % ointment topical Referrals: [facility] [Provider Group] Print Language: Marshallese
[2024-11-30 09:46] VITALS: BP 120/75; PULSE 78; RESP 16; TEMP 36.6
--- OUTSIDE RECORDS SUMMARY | 2024-11-30 10:26 | XMS_ITS | Encounter Summary ---
Author Organization [employer] Address [address] [place] [address] [address] [place] [address] Care Team Providers Care Technical Manager Name Role Phone Shaylee Obrien MD Primary Care Provider + Encounter Details Date Type Department Care Team (Late st Contact Info) Description 11/30/2024 Orders Only [facility] External Provider, [facility] Social History Tobacco Use Types Packs/Day Years Used Date Smoking Tobacco: Former Cigarettes Smokeless Tobacco: Never Alcohol Use Standard Drinks/Week Comments Not Currently [...] Answer Date Recorded Internet Access Q1 Yes 11/16/2024 Internet Access Q2 Not on file 11/16/2024 Comments No Sex and Gender Information Value Date Recorded Sex Assigned at Female 03/04/2023 8:53 AM EST Legal Sex Female 8:46 AM EST Gender Identity Female 03/04/2023 8:53 AM EST Sexual Orientation Straight 03/04/2023 8: 53 AM EST documented as of this encounter Plan of Treatment Upcoming Encounters Date Type Department Care Team (Late st Contact Info) Description 12/31/2024 10:30 AM EDT Office Visit [facility] [address] [place], [place] [phone] Shaylee Obrien MD [address] [place] [address] documented as of this encounter Procedures Procedure Name Priority Date/Time Associated Diagnosis Comments XR WRIST 3+ VIEWS RIGHT Routine 11/30/2024 9:05 AM EDT XR KNEE 4+ VIEWS LEFT Routine 11/30/2024 8:55 AM EDT documented in this encounter Results * XR Wrist 3+ Views Right (11/30/2024 9:05 AM EDT) Anatomical Region Laterality Modality Upper Extremities, Wrist Right Radiogr aphic Imaging 11/30/2024 9:05 AM EDT Narrative 11/30/2024 9:13 AM EDT [address] [address] XRay Report Signed Patient: Vanessa Nash MR#: [id number] 05 : 1975 Acct:[id number] Age/Sex: 49 / F ADM Date: 11/30/24 Loc: .ED Attending Dr: Ordering Physician: Chencho Us DO Date of Service: 11/30/24 Procedure(s): XR wrist RT min 3V Accession Number(s): [id number] cc: [facility]; Chencho Us DO Reason for Exam: pain EXAMINATION: XR WRIST, RIGHT CLINICAL INFORMATION: pain COMPARISON: None available. TECHNIQUE: PA, lateral, oblique, and scaphoid views of the right wrist. FINDINGS: The bones and soft tissues are normal. No fracture. Alignment is anatomic with normal joint spaces. No erosions or abnormal soft tissue calcifications. XR/XR wrist RT min 3V IMPRESSION: Normal right wrist. Electronically signed by: Gus Hernandez MD 11/30/2024 09:11 AM EDT RP Dictated By: Gus Hernandez MD Signed By: <Electronically signed by Gus Hernandez MD in OV> 11/30/24910 DD/ 4 TD/TT: 11/30/24906 Engineer: Procedure Note Donotuseinterpreter, Image - 11/30/2024 [place] [address] XRay Report Signed Patient: Keshav Nash#: [id number] 05 : 1975Acct:[id number] Age/Sex: 49 / FADM Date: 11/30/24 Loc: .ED Attending Dr: Ordering Physician: Chencho Us DO Date of Service: 11/30/24 Procedure(s): XR wrist RT min 3V Accession Number(s): [id number] cc: [facility]; Chencho Us DO Reason for Exam: pain EXAMINATION: XR WRIST, RIGHT CLINICAL INFORMATION: pain COMPARISON: None available. TECHNIQUE: PA, lateral, oblique, and scaphoid views of the right wrist. FINDINGS: The bones and soft tissues are normal. No fracture. Alignment is anatomic with normal joint spaces. No erosions or abnormal soft tissue calcifications. XR/XR wrist RT min 3V IMPRESSION: Normal right wrist. Electronically signed by: Gus Hernandez MD 11/30/2024 09:11 AM EDT RP Dictated By: Gus Hernandez MD Signed By: <Electronically signed by Gus Hernandez MD in OV> 11/30/24910 DD/ 4 TD/TT: 11/30/24906 Engineer: [facility] External Provider IMG XR PROCEDURES Edited Result - Final * XR Knee 4+ Views Left (11/30/2024 8:55 AM EDT) Anatomical Region Laterality Modality Lower Extremities, Knee Left Radiogra phic Imaging 11/30/2024 8:55 AM EDT Narrative 11/30/2024 9:16 AM EDT [address] [address] XRay Report Signed Patient: Vanessa Nash MR#: [id number] 05 : 1975 Acct:[id number] Age/Sex: 49 / F ADM Date: 11/30/24 Loc: .ED Attending Dr: Ordering Physician: Tiffani Gillis Date of Service: 11/30/24 Procedure(s): XR knee LT 4V Accession Number(s): [id number] cc: [facility]; Tiffani Gillis Reason for Exam: pain EXAMINATION: XR KNEE, LEFT CLINICAL INFORMATION: pain COMPARISON: 12/25/2023. TECHNIQUE: Four views of the left knee. FINDINGS: No fracture, dislocation, or suspicious bone lesion. There is normal alignment. There are 3 transverse compression screws in the proximal tibia metaphysis, fixating a prior tibial plateau fracture. The fracture appears healed. The hardware is well seated. There is no acute fracture. Persistent mild depression of the medial tibial plateau is present with mild joint space narrowing of all 3 compartments. There is a moderate to large sized suprapatellar joint effusion. XR/XR knee LT 4V IMPRESSION: 1. No acute bony abnormalities of the left knee. 2. Fixated and healed previous tibial plateau fracture. 3. Joint effusion. Electronically signed by: Gus Hernandez MD 11/30/2024 09:13 AM EDT Dictated By: Gus Hernandez MD Signed By: <Electronically signed by Gus Hernandez MD in OV> 11/30/24912 DD/ 4 TD/TT: 11/30/24906 Engineer: Procedure Note Donotuseinterpreter, Image - 11/30/[address] [address] XRay Report Signed Patient: Keshav Nash#: [id number] 05 : 1975Acct:[id number] Age/Sex: 49 / FADM Date: 11/30/24 Loc: HO.ED Attending Dr: Ordering Physician: Tiffani Gillis Date of Service: 11/30/24 Procedure(s): XR knee LT 4V Accession Number(s): [id number] cc: [facility]; Tiffani Gillis Reason for Exam: pain EXAMINATION: XR KNEE, LEFT CLINICAL INFORMATION: pain COMPARISON: 12/25/2023. TECHNIQUE: Four views of the left knee. FINDINGS: No fracture, dislocation, or suspicious bone lesion. There is normal alignment. There are 3 transverse compression screws in the proximal tibia metaphysis, fixating a prior tibial plateau fracture. The fracture appears healed. The hardware is well seated. There is no acute fracture. Persistent mild depression of the medial tibial plateau is present with mild joint space narrowing of all 3 compartments. There is a moderate to large sized suprapatellar joint effusion. XR/XR knee LT 4V IMPRESSION: 1. No acute bony abnormalities of the left knee. 2. Fixated and healed previous tibial plateau fracture. 3. Joint effusion. Electronically signed by: Gus Hernandez MD 11/30/2024 09:13 AM EDT Dictated By: Gus Hernandez MD Signed By: <Electronically signed by Gus Hernandez MD in [place]> 11/30/24912 DD/ 4 TD/TT: 11/30/24906 Engineer: [facility] External Provider IMG XR PROCEDURES Edited Result - Final documented in this encounter Visit Diagnoses Not on filedocumented in this encounter Additional Health Concerns Assessment Noted Time PHQ-9 Depression Total Score: 16 11/14/ 024 10:20 AM EDT documented as of this encounter Care Teams Technical Manager Relationship Specialty Start Date End Date Shaylee Obrien MD [address] [place] [address] PCP - General Internal Medicine 11/15/23 documented as of this encounter
--- OUTSIDE RECORDS SUMMARY | 2024-11-30 10:26 | XMS_ITS | Encounter Summary ---
Author Organization [employer] Address [address] [place] [address] [address] [place] [address] Care Team Providers Care Maternity Nurse Name Role Phone Shaylee Obrien MD Primary Care Provider + Encounter Details Date Type Department Care Team ([facility] st Contact Info) Description 10/21/2024 Results Follow-Up [facility] [address] [place], [place] [phone] Shaylee Obrien MD [address] [place], [place] [phone] Hepatic Function Panel, Lipid Panel with Reflex to Direct LDL Social History Tobacco Use Types Packs/Day Years [...] AM EST documented as of this encounter Miscellaneous Notes * Result Encounter Note - Shaylee Obrien MD - 10/21/2024 2:23 PM EDT Lipid profile significantly improving on Crestor. I will follow-up with patient at next visit documented in this encounter Plan of Treatment Upcoming Encounters Date Type Department Care Team (Late st Contact Info) Description 12/31/2024 10:30 AM EDT Office Visit [facility] [address] [place] [address] Shaylee Obrien MD [address] [place] [address] documented as of this encounter Visit Diagnoses Not on filedocumented in this encounter Additional Health Concerns Assessment Noted Time PHQ-9 Depression Total Score: 16 024 10:20 AM EDT documented as of this encounter Care Teams Maternity Nurse Relationship Specialty Start Date End Date Shaylee Obrien MD [address] [place] [id number] PCP - General Internal Medicine 11/15/23 documented as of this encounter
--- OUTSIDE RECORDS SUMMARY | 2024-11-30 10:26 | XMS_ITS | Clinical Summary ---
Author Organization [employer] Address [address] [place] [address] Care Team Providers Care Journeyman Machinist Name Role Phone Amy Rogers MD Primary [...] schedule appointment I gave her information regarding [facility] referral that she has requested previously again we discussed that it is very unlikely that her [facility] can help relieve any the case of adhesions, she will get back to me as needed abdominal/pelvic pain Assessment & Plan (01/20/2024 12:04 PM EST): Ro colon pathology, she was referred to GI for colonoscopy. It could also be related to pelvic adhesions, I d/w patient re potential sxs, she will re consult prn uTI , incontinence sxs. A referral to [facility] has been made at her request, she's aware that she needs to bring surgical information to [facility] and that sxs are most likely NOT related to [facility] cause. Tenosynovitis of right wrist 12/23/2023 Assessment [...] Cyst of left kidney 03/04/2023 Overview (10/21/2024): [facility] Renal US 09/17/23: Left renal complex cyst on lower pole, with septations and internal echoes but no vascularity, measures 3.2 x 3.4 x 3.3 cm. Absent right kidney. [facility] renal US on 11/19/2024 showed 4 cm septated left renal cyst/Bosniak 1 Assessment & Plan (11/15/2023 1:30 PM EDT): She has been referred to Nephrology already, will obtain BMP. Obtain previous US from previous PCP. Encounters * This document contains information received from the source organization and may not represent a complete record from that organization. Date Type Department Care Team Description 11/30/2024 Orders Only [facility] External Provider, [facility] 11/23/2024 3:20 PM EDT Office Visit [facility] [address] [place] [address] Brandy Rosado FNP Right wrist pain (Primary Dx) 11/23/2024 Travel 10/21/2024 Results Follow-Up [facility] [address] [place] [address] Amy Rogers MD Hepatic Function Panel, Lipid Panel with Reflex to Direct LDL 10/21/2024 Results Follow-Up [facility] [address] [place] [address] Amy Rogers MD US Renal Complete 09/17/[address] [facility] [address] [place] [address], [place] [phone] Amy Rogers MD November recall from Last [...] Sign Reading Time Taken Comments Blood Pressure 124/88 11/23/2024 3:57 PM EDT Pulse 77 11/23/2024 3:57 PM EDT Temperature 36.9 C (98.5 F) 11/23/2024 3:57 PM EDT Respiratory Rate 18 11/23/2024 3:57 PM EDT Oxygen Saturation 99% 11/23/2024 3:57 PM EDT Inhaled Oxygen Concentration - - Weight 88.5 kg (195 lb) 11/23/2024 3:57 PM EDT Height 167.6 cm (5' 6 ) 07/22/2024 8:59 AM EDT Body Mass Index 31.47 07/22/2024 8:59 AM EDT Plan of Treatment Upcoming Encounters Date Type Department Care Team (Late st Contact Info) Description 12/31/2024 10:30 AM EDT Office [address] [facility] [address] [place] [address] Amy Rogers MD [address] [place] [address] Health Maintenance Due Date Last Done Comments CT Colonography 1975 Colonoscopy 1975 Colorectal Cancer Screening 1977 FIT DNA/Cologuard 1977 FIT 1975 FOBT 1975 Sigmoidoscopy 1975 Disability Screening 1977 Family Planning (PISQ) 1992 DTaP/Tdap/Td Vaccines (1 - Tdap) 1996 Hepatitis B Vaccines (2 of 3 - 19+ 3-dose series) 01/20/2024 12/23/2023 Depression Monitoring 05/15/2024 11/15/2023 , 11/15/2023 COVID-19 Vaccine ( - 2023-2 5 season) 2024 Influenza Vaccine (#1) 2024 01/20/2024 Alcohol/Substance Use Screening 01/19/2025 01/20/2024 Mammogram 03/04/2025 03/04/2024 SDOH Screening 04/17/2025 04/17/2024 Tobacco Screening 11/23/2025 11/23/2024 Zoster Vaccines (1 of 2) 2027 RSV [...] VIEWS LEFT Routine 11/30/2024 8:55 AM EDT URINALYSIS, COMPLETE Routine 10/20/2024 10:53 AM EDT [...] Recently Relevant to Health Maintenance Results * XR Wrist 3+ Views Right (11/30/2024 9:05 AM EDT) Anatomical Region Laterality Modality Upper Extremities, Wrist Right Radiogr aphic Imaging 11/30/2024 9:05 AM EDT Narrative 11/30/2024 9:13 AM EDT [address] [address] XRay Report Signed Patient: Vanessa Nash MR#: [id number] [birth year] : 1975 Acct:[id number] Age/Sex: 49 / F ADM Date: 11/30/24 Loc: HO.ED Attending Dr: Ordering Physician: Chencho Us DO Date of Service: 11/30/24 Procedure(s): XR wrist RT min 3V Accession Number(s): [id number] cc: [facility]; Chencho Us DO Reason for Exam: pain [...] signed by Gus Hernandez MD in OV> 11/30/24 0911 DD/ 09 TD/TT: 11/30/24 0907 Book Coverer: Procedure Note Donotuseinterpreter, Clemencia - 11/30/2024 [place] [address] XRay Report Signed Patient: Keshav Nash#: [id number] 05 : 1975Acct:[id number] Age/Sex: 49 / FADM Date: 11/30/24 Loc: HO.ED Attending Dr: Ordering Physician: Chencho Us DO Date of Service: 11/30/24 Procedure(s): XR wrist RT min 3V Accession Number(s): [id number] cc: [facility]; Chencho Us DO Reason for Exam: pain [...] MD in OV> 11/30/[address] DD/ 4 TD/TT: 11/30/24 09 Book Coverer: [facility] External Provider IMG XR PROCEDURES Edited Result - Final * XR Knee 4+ Views Left (11/30/2024 8:55 AM EDT) Anatomical Region Laterality Modality Lower Extremities, Knee Left Radiogra phic Imaging 11/30/2024 8:55 AM EDT Narrative 11/30/2024 9:16 AM EDT [place] [address] XRay Report Signed Patient: Vanessa Nash MR#: [id number] 05 : 1975 Acct:[id number] Age/Sex: 49 / F ADM Date: 11/30/24 Loc: HO.ED Attending Dr: Ordering Physician: Tiffani Gillis Date of Service: 11/30/24 Procedure(s): XR knee LT 4V Accession Number(s): [id number] cc: [facility]; Tiffani Gillis Reason for Exam: pain EXAMINATION: [...] Gus Hernandez MD 11/30/2024 09:13 AM EDT RP Dictated By: Gus Hernandez MD Signed By: <Electronically signed by Gus Hernandez MD in OV> 11/30/24912 DD/ 4 TD/TT: 11/30/24906 Book Coverer: Procedure Note Donotuseinterpreter, Image - 11/30/[address] [address] XRay Report Signed Patient: Keshav Nash#: [id number] 05 : 1975Acct:[id number] Age/Sex: 49 / FADM Date: 11/30/24 Loc: HO.ED Attending Dr: Ordering Physician: Tiffani Gillis Date of Service: 11/30/24 Procedure(s): XR knee LT 4V Accession Number(s): [id number] cc: [facility]; Tiffani Gillis Reason for Exam: pain EXAMINATION: [...] Gus Hernandez MD 11/30/2024 09:13 AM EDT RP Dictated By: Gus Hernandez MD Signed By: <Electronically signed by Gus Hernandez MD in OV> 11/30/24912 DD/ 0855 TD/TT: 11/30/24 0907 Book Coverer: [facility] External Provider IMG XR PROCEDURES Edited Result - Final * (ABNORMAL) Urinalysis Complete (10/20/2024 10:53 AM EDT) Color Urine Dark Yellow [facility] Appearance Urine Cloudy [facility] PH 5.5 5.0 - 9.0 [facility] Glucose Urine UA Negative Negative mg/dL [facility] Urine Blood Negative Negative [facility] Specific [place] - Urine >=1.030(H) 1.005 - 1.025 [facility] Urine Protein 30 (1+)(A) Neg-Trace mg/dL [facility] Urine Ketones Trace Negative mg/dL [facility] Nitrite Urine Negative Negative [facility] Leukocyte Esterase Urine Trace(A) Negative [facility] RBC Urine 0-2 0 - 2 /HPF [facility] Urine WBC 11-20(A) 0 - 5 /HPF [facility] Urine Squamous Epithelial Cell >20 0 - 2 /HPF [facility] Urine Bacteria 4+ None Seen [facility] Hyaline Casts, Urine 3-5 0 - 2 /LPF [facility] 10/20/2024 10:5 3 AM EDT 10/20/2024 11:36 AM EDT Generic External Data Provider LAB URINE ORDERAB LES Final Result [facility] [address] [place] [phone] * Cytopath-cell enhanced (10/20/2024 10:52 AM EDT) 10/20/2024 10:5 2 AM EDT 10/21/2024 8:50 AM EDT Narrative [facility] - 10/21/2024 3:01 PM EDT ----- ------- Name: Vanessa Nash Age/Sex: 49/F : 1975 Unit#: [id number] Attend Dr: Donald Lazcano MD Re10/20/24 Status: DEP REF Location: [facility] Disch: ----- ------- SPEC : [id number] RECD: 10/21/2450 STATUS: CEDRICK [place]OH[place] NUM: [id number] JJ: 10/20/24-[address] [facility] [address]: Donald Lazcano MD ENTERED: 10/21/24-1016 SP TYPE: Cytology OTHR DR: Amy Rogers MD ORDERED: Cyto-enhanced Diagnosis [...] developed and their performance characteristics determined by [facility]. They have not been cleared or approved by the U.S. Food and Drug Administration (FDA). However, the FDA has determined that such clearance or approval is not necessary. This laboratory is certified under the Clinical Laboratory Improvement Amendments of 1988 (CLIA) as qualified to perform high complexity clinical laboratory testing. Copies To: Donald Lazcano MD [facility] [address] [place] [address] Dr [address] [place] [address] [email or web address] Amy Rogers MD [address] [address] CONTINUED ON NEXT PAGE ----- ------- Name: Colon,Vanessa Age/Sex: 49/F : 1975 Unit#: [id number] Attend Dr: Donald Lazcano MD Re10/20/24 Status: DEP REF Location: [facility] Disch: ----- ------- SPEC : [id number] RECD: 10/21/2450 STATUS: CEDRICK DONOHUE NUM: [id number] JJ: 10/20/24-[address] [facility] [address]: Donald Lazcano MD ENTERED: 10/21/24-1015 SP TYPE: Cytology OTHR DR: Amy Rogers MD ORDERED: Cyto-enhanced ----- ------- Signed (signature on file) [place] 10/21/24 1501 ----- ------- END OF REPORT us Generic External Data Provider LAB CYTOLOGY [place]KE [place] Final Result [facility] [address] [place] [phone] * (ABNORMAL) Lipid Panel with Reflex to Direct LDL (10/20/2024 9:30 AM EDT) Triglycerides 186(H) <150 mg/dL [facility] Comment:Desirable Triglyceri de: less than 150 mg/dLBorderline High Triglyceride 150-199 mg/dLHigh Triglyceride: 200-499 mg/dLVery High Triglyceride: greater than or equal to 5OO mg/dL Cholesterol 190 <200 mg/dL [facility] Comment:Desirable Cholestero l: less than 200 mg/dLBorderline High Cholesterol: 200-239 mg/dLHigh Cholesterol: greater than 239 mg/dL LDL Cholesterol Calculated 97 <100 mg/dL [facility] Comment:Desirable LDL: less than 100 mg/dLNear Optimal/Above Optimal LDL: 110- 129 mg/dLBorderline High LDL: 130-159 mg/dLHigh LDL: 160-189 mg/dLVery High LDL: greater than or equal to 190 mg/dL HDL Cholesterol 56 >40 mg/dL [facility] Comment:Desirable HDL: great er than 40 mg/dL Note: This HDL assay may give artificially low results in patients with liver disease. Blood 10/20/2024 9:30 AM EDT 10/20/2024 11:13 AM EDT Amy Rogers MD LAB BLOOD ORDERABLES Fin al Result Performing Organization Address [facility] de Phone Number [facility] [address] [place] [phone] * Hepatic Function Panel (10/20/2024 9:30 AM EDT) Bilirubin, Total 0.3 0.0 - 1.0 mg/dL [facility] Bilirubin, Direct 0.1 0.0 - 0.5 mg/dL [facility] Aspartate Amino Transferase 27 5 - 31 U/L [facility] Alanine Aminotransferase 30 0 - 31 U/L [facility] Total Protein 6.7 6.5 - 8.0 g/dL [facility] Albumin Level 4.1 3.5 - 5.0 g/dL [facility] Alkaline Phosphatase 100 39 - 117 U/L [facility] Blood Venous blood specimen / Unknown 10/20/2024 9:30 AM EDT 10/20/2024 11:13 AM EDT Amy Rogers MD LAB BLOOD ORDERABLES Fin al Result Performing Organization Address [facility] Phone Number [facility] [address] [place] [phone] * (ABNORMAL) Basic Metabolic Panel (10/20/2024 9:30 AM EDT) Sodium 141 135 - 145 mmol/L [facility] Potassium 3.8 3.3 - 5.1 mmol/L [facility] Chloride 106 96 - 108 mmol/L [facility] Carbon Dioxide 29 22 - 29 mmol/L [facility] Anion Gap 10(L) 12 - 20 [facility] Urea Nitrogen (BUN) 9 9 - 16 mg/dL [facility] Creatinine, Serum 0.82 0.5 - 1.4 mg/dL [facility] Estimated Glomerular Filt Rate >60 [facility] Comment:Chronic Kidney Disea se: Estimated GFR < 60 mL/min/1.57y0Budcbp Kidney Disease: Estimated GFR < 15 mL/min/1.73m2 Glucose 85 60 - 115 mg/dL [facility] Calcium 9.0 8.4 - 10.2 mg/dL [facility] 10/20/2024 9:30 AM EDT 10/20/2024 11:13 AM EDT us Generic External Data Provider LAB BLOOD ORDERAB LES Final Result Performing Organization Address City/State/[facility] Co de Phone Number [facility] [address] [place] [phone] * US Renal Complete (10/19/2024 3:04 PM EDT) Anatomical Region Laterality Modality Kidney Ultrasound 10/19/2024 3:04 PM EDT Narrative 10/19/2024 3:05 PM EDT [address] [address] Ultrasound Report Signed Patient: Vanessa Nash MR#: [id number] [birth year] : 1975 Acct:[id number] Age/Sex: 49 / F ADM Date: 10/19/24 Loc: .US Attending Dr: Donald Lazcano MD Ordering Physician: Donald Lazcano MD Date of Service: 10/19/24 Procedure(s): US renal BI Accession Number(s): [id number] cc: Donald Lazcano MD; Amy Rogers MD [...] 10/19/24 1505 DD/ 1504 TD/TT: 10/19/24 150 Book Coverer: Procedure Note Donotuseinterpreter, Image - 10/19/2024 [place] [address] Ultrasound Report Signed Patient: Keshav Nash#: [id number] [birth year] : 1975Acct:[id number] Age/Sex: 49 / FADM Date: 10/19/24 Loc: .US Attending Dr: Donald Lazcano MD Ordering Physician: Donald Lazcano MD Date of Service: 10/19/24 Procedure(s): US renal BI Accession Number(s): [id number] cc: Donald Lazcano MD; Amy Rogers MD [...] 10/19/24 1505 DD/ 1504 TD/TT: 10/19/24 150 Book Coverer: [facility] External Provider IMG US PROCEDURES Final Result * BI Mammogram Screening Tomosynthesis Bilateral (03/04/2024 10:15 AM EST) Anatomical Region Laterality Modality Breast Bilateral Mammography 03/04/2024 10:1 5 AM EST Narrative 03/16/2024 2:04 PM EST [address] [place], [place] [address] Mammography Report Signed Patient: Vanessa Nash MR#: [id number] [birth year] : 1975 Acct:[id number] Age/Sex: 48 / F ADM Date: 03/04/24 Loc: HO.MAMMO Attending Dr: Amy Rogers MD Ordering Physician: Amy Rogers MD Results: 1Ne gative Date of Service: 03/04/24 Follow Up: 1 Year From Orig ina Mammogram Procedure(s): MM tomosynthesis screening BI Accession Number(s): [id number] cc: Amy Rogers MD EXAMINATION: MM SCREENING [...] 03/16/24 1401 DD/ 1015 TD/TT: 03/04/24 1025 Book Coverer: Procedure Note Donotuseinterpreter, Image - 03/16/2024 C[facility] [address] [place], [place] [address] Mammography Report Signed Patient: Keshav Nash#: [id number] [birth year] : 1975Acct:[id number] Age/Sex: 48 / FADM Date: 03/04/24 Loc: HO.MAMMO Attending Dr: Amy Rogers MD Ordering Physician: Amy Rogers MDResults: 1Ne gative Date of Service: 03/04/24Follow Up: 1 Year From Orig ina Mammogram Procedure(s): MM tomosynthesis screening BI Accession Number(s): [id number] cc: Amy Rogers MD EXAMINATION: MM SCREENING [...] by: Brittany Gilliland DO 03/16/2024 02:01 PM [facility] Dictated By: Brittany Gilliland DO Signed By: <Electronically signed by Brittany Gilliland DO in OV> 03/16/24 1401 DD/ 1015 TD/TT: 03/04/24 1025 Book Coverer: us Amy Rogers MD IMG BI PROCEDURES Final Result * Hepatitis Panel, General (11/20/2023 9:46 AM EDT) Hepatitis A IgM Nonreactive Nonreactive [facility] Comment:IgM antibodies to PASTRANA V not detected; does not exclude earlyacute or recovered HAV infection. ~Hepatitis B Surface Antibody NONREACTIVE Nonreactive [facility] Comment:Nonreactive: < 8.00 mIU/mL Hepatitis B Core Antibody Nonreactive Nonreactive [facility] Hepatitis C Antibody Nonreactive Nonreactive [facility] Comment:Antibodies to HCV no t detected; does not exclude early acuteHCV infection. Hepatitis B Surface Ag Negative Negative [facility] Blood 11/20/2023 9:46 AM EDT 11/20/2023 11:03 AM EDT Amy Rogers MD LAB BLOOD ORDERABLES Fin al Result [facility] [address] [place] [phone] * HIV-1/2 Antigen and Antibodies, Fourth Generation, with Reflexes (11/20/2023 9:46 AM EDT) HIV AB/AG Nonreactive Nonreactive [facility] Comment:HIV-1 p24 Ag and/or HIV-1/HIV-2 Ab not detected.A test result that is nonreactive does not exclude thepossibility of exposure to or infection with HIV-1 and/orHIV-2. Nonreactive results in this assay for individualswith prior exposure to HIV-1 and/or HIV-2 may be due toantigen and antibody levels that are below the limit ofdetection of this assay.The Modustri HIV Ag/Ab Combo assay result andsupplemental assay results should be interpreted inconjunction with the patient's clinical presentation,history and other laboratory results. If the results areinconsistent with clinical evidence, additional testing issuggested to confirm the result. Blood Venous blood specimen / Unknown 11/20/2023 9:46 AM EDT 11/20/2023 11:03 AM EDT Amy Rogers MD LAB BLOOD ORDERABLES Fin al Result [facility] [address] [place] [phone] from Last 3 Months or Most Recently Relevant to Health Maintenance Insurance [facility] Care Teams Journeyman Machinist Relationship Specialty Start Date End Date Amy Rogers MD [address] [place] [phone] PCP - General Internal Medicine 11/15/23
--- OUTSIDE RECORDS SUMMARY | 2024-11-30 10:26 | XMS_ITS | Encounter Summary ---
Author Organization [employer] Address [address] [place] [address] [address] [place] [address] Care Team Providers Care Lab Animal Technologist Name Role Phone Shaylee Obrien MD Primary Care Provider + Reason for Visit * Reason Comments Med Refill Encounter Details Date Type Department Care Team (Late Contact Info) Description 09/06/2023 Refill [facility] [address] [place] [phone] Vijay Barron MD [address] [place] [phone] Social History Tobacco Use Types Packs/Day Years Used Date Smoking Tobacco: Some Days Cigarettes Smokeless Tobacco: Never Comments Unknown Sex and Gender Information Value Date Recorded Sex Assigned at Female 03/04/2023 8:53 AM EST Legal Sex Female 8:46 AM EST Gender Identity Female 03/04/2023 8:53 AM EST Sexual Orientation Straight 03/04/2023 8: 53 AM EST documented as of this encounter Plan of Treatment Upcoming Encounters Date Type Department Care Team (Late Contact Info) Description 12/31/2024 10:30 AM EDT Office Visit [facility] [address] [place] [phone] Shaylee Obrien MD [address] [place] [phone] documented as of this encounter Visit Diagnoses Not on filedocumented in this encounter Care Teams Lab Animal Technologist Relationship Specialty Start Date End Date Shaylee Obrien MD [address] [place] [phone] PCP - General Internal Medicine 11/15/23 documented as of this encounter
== END 2024-11-30 09:48 | disposition home or self-care (01) ==
PROVIDERS: Emergency Provider Emergency Medicine
DX: M25.531 Pain in right wrist (principal); M25.562 Pain in left knee; E78.5 Hyperlipidemia, unspecified; Z52.4 Kidney donor
CPT/HCPCS: 73110; 73564; 99283

== ENCOUNTER → 2024-11-30 09:05 | Outpatient (BNV) | payer MEDICAID, SELFPAY | PROVIDERS: Emergency Provider Emergency Medicine; Visit Provider Radiology Diagnostic Radiology | DX: M25.462 Effusion, left knee (principal); M25.531 Pain in right wrist | CPT/HCPCS: 73110; 73564 ==

== ENCOUNTER 2024-12-22 08:11 | Outpatient (AMB) | payer MEDICAID, SELFPAY ==
[2024-12-22 09:22] VITALS: BMI 31.5
--- NOTE | 2024-12-22 09:22 | MHC.OFFVIS ---
Vital Signs 12/22/24 09:22 Height 5 ft 6 in Weight 195 lb BMI 31.5 Intake Visit Reasons: new prob- rt hand dequervain Intake Note: Vanessa is a 49 year old ,Kinyarwanda Speaking, right hand dominant female who presents today for a Follow up visit with complaints of Right Wrist Pain. Patient was seen at [facility] on 11/30/24 where she reported continue right wrist pain. We last saw her in our office about one year ago where we provided her with a Right EDU Tenosynovitis injection due to a fall on 07/31/2023. She did not follow up after this injection. Today patient states injection did not help relief pain. She is now having pain on her radial aspect of hand, by base of her thumb. No injury she can recall. She has pain with twisting, gripping and is not able to do heavy lifting. Patient states she doesn't want to repeat injection today. She continues to use wrist brace with activities. Allergies No Known Allergies Allergy (Verified 12/22/24 09:32) HPI HPI new prob- rt hand dequervain: Details: Vanessa is a 49 year old right hand dominant woman who presents with new complaints of right radial sided wrist pain. She was last seen for right ECU tenosynovitis, and received an injection on 12/31/23. She denies any relief from this injection. She complains of ~1 month of radial-sided wrist pain. She says her pain is worse with pinching, gripping, or heavy lifting activities. She denies any falls or known injury. She says she only has mild pain in the dorsal ulnar aspect of her wrist. She doesn't work and instead takes care of her 3 children, ages 11-13, & household. She says her pain causes difficulty sleeping sometimes. [facility] Medical History (Updated 12/22/24 @ 10:02 by Raji Larios) Hyperlipidemia Anxiety Surgical History Hx of kidney removal Hx of knee surgery Hx of hysterectomy Family History Father CAD (coronary artery disease) Mother CAD (coronary artery disease) Social History Alcohol intake: current Alcohol intake frequency: holidays/special occasions only Patient Tobacco Use Status: Current someday Tobacco user Tobacco use type: Cigar Current occupational status: unemployed Current occupation: right hand dominant Review of Systems Const All systems reviewed & are unremarkable except as noted in HPI and below Physical Exam Vital Signs: BMI result Body Mass Index 31.5 Const General: cooperative, healthy appearing and no acute distress Orientation/consciousness: patient oriented x3 HEENT Head: Yes normocephalic and Yes atraumatic Eyes EOM: EOMs intact bilaterally Resp Effort & Inspection: normal respiratory effort and able to speak in complete sentences Cardio Jugular venous distension: no JVD Skin General skin exam: turgor normal Rashes: no rashes Neuro General: patient oriented x3 Extrem Other: Evaluation of Right Upper Extremity: The patient is alert, oriented, and in no acute distress Neuro: Median, Ulnar, Radial nerves motor and sensory intact and sensation is normal to the tips of all digits Vascular: Cap refill brisk ROM: She can make a fist and extend all her digits Skin: No lacerations or abrasions. General: No Ecchymosis. No Erythema or evidence of infection. Most tender over the 1st dorsal compartment Positive Marbin test on the right No tenderness where the 2nd compartment crosses over the 3rd compartment No tenderness over the basal joint or MCP joint No tenderness over the a1 gilbert No tenderness over the ECU tendon Psych Appearance: grossly normal Affect: normal affect Attitude: cooperative Assessment & Plan Assessment & Plan (1) De Quervain's tenosynovitis, right: Code(s): M65.4 - Radial styloid tenosynovitis [de Quervain] Category: Medical Plan Assessment & Plan: 1. Right De Quervains tenosynovitis Onset ~11/22/24 I educated her about this condition I discussed operative and non-operative treatment options I recommend an injection & bracing, but she is adamant she does not want an injection today I discussed activity modification, they should limit or avoid any heavy or repetitive pinching or gripping activities She was fitted for a comfort cool brace to wear with daily activity She should work on ROM exercises, and avoid any gripping or strengthening activities I discussed the use of assistive devices for daily activity If she changes her mind about the injection, she can call to make an appointment to discuss Otherwise, she can follow up prn 2. Right ECU tenosynovitis, S/P injection DOI: 07/31/23 Date of injection: 12/31/23 Mild pain, improved from prior 3. Right hand numbness, S/P fall DOI: 07/31/23 Unremarkable NCS on 10/15/23 Resolved, no complaints today Scribed for Feli Andersen MD by Raji Larios, medical registrar, on 12/22/24 at 9:55 AM, EST. Scribe Plan - Not visible on output: Scribed for Feli Andersen MD by Raji Larios, medical registrar, on [ ] at [ ], EST. Coding Level of Care Code Est Pt Level 3 (83211) Diagnoses De Quervain's tenosynovitis, right M65.4
== END 2024-12-22 10:13 | disposition home or self-care (01) ==
PROVIDERS: PCP Emergency Medicine; Visit Provider Orthopaedic Surgery
DX: M65.4 Radial styloid tenosynovitis [de Quervain] (principal)
CPT/HCPCS: 99213

== ENCOUNTER → 2024-12-22 08:11 | Outpatient (BNVA) | payer MEDICAID, SELFPAY | PROVIDERS: Visit Provider Orthopaedic Surgery | DX: M65.4 Radial styloid tenosynovitis [de Quervain] (principal) | CPT/HCPCS: 99212 ==

== ENCOUNTER 2025-01-05 11:05 | Emergency (ER) | payer MEDICAID, SELFPAY ==
--- OUTSIDE RECORDS SUMMARY | 2024-12-31 10:30 | XMS_ITS | Encounter Summary ---
Author Organization [employer] Address [address] [place] [id number] Care Team Providers Care Water Control Station Engineer Name Role Phone Shaylee Orbien MD Primary Care Provider + Reason for Referral * Consultation (Routine) - Authorized Specialty Diagnoses / Procedures Referred By Shahrzad t Referred To Contact Family Medicine Diagnoses Post-traumatic osteoarthritis of left knee Tenosynovitis of right wrist Pelvic pain in female Shaylee Obrien MD [address] [place] [phone] Phone: tel: fax: [facility] [address] [place] [phone] Phone: tel: fax: Referral ID Status Reason Start Date Expiration Date Visits Requested Visits Authorized [id number] Authorized Consult and Treat 12/31/2024 12/31/2025 1 1 Encounter Details Date Type Department Care Team (Latest Contact Info) Description 12/31/2024 10:30 AM EDT Office Visit [facility] [address] [place] [id number] Shaylee Obrien MD [address] [place] [address] [phone] Screening for colon cancer (Primary Dx); Post-traumatic osteoarthritis of left knee; Tenosynovitis of right wrist; Mixed hyperlipidemia; Class 1 obesity due to excess calories without serious comorbidity with body mass index (BMI) of 32.0 to 32.9 in adult; Pelvic pain in female; Generalized anxiety disorder with panic attacks; Dietary counseling; Exercise counseling; Cyst of left kidney Social History Tobacco Use Types Packs/Day Years Used Date Smoking Tobacco: Former Cigarettes Smokeless Tobacco: Never Alcohol Use Standard Drinks/Week Comments Not Currently 0 (1 standard drink = 0.6 oz pur e alcohol) oca Depression Answer Date Recorded Patient Health Questionnaire-9 Score 17 12/31/2024 Patient Health Questionnaire-9 Score 17 12/31/2024 Last PHQ-9: Questionnaire Data Not on file 1 Housing Stability Answer Date Recorded What is your housing situation today? I have lauriat moreno 11/15/[address] you [...] Answer Date Recorded Patient Health Questionnaire-2 Score 5 12/31/2024 Internet Access Answer Date Recorded Internet Access Q1 Yes 11/16/2024 Internet Access Q2 Not on file 11/16/2024 Comments No Intention Date Recorded No desire to become (finding) 1 Sex and Gender Information Value Date Recorded Sex Assigned at Female 03/04/2023 8:53 AM EST Legal Sex Female 8:46 AM EST Gender Identity Female 03/04/2023 8:53 AM EST Sexual Orientation Straight 03/04/2023 8: 53 AM EST documented as of this encounter Last Filed Vital Signs Vital Sign Reading Time Taken Comments Blood Pressure 116/64 12/31/2024 10:16 AM EDT Pulse 82 12/31/2024 10:16 AM EDT Temperature 36.7 C (98.1 F) 12/31/2024 10:16 AM EDT Respiratory Rate 14 12/31/2024 10:16 AM EDT Oxygen Saturation - - Inhaled Oxygen Concentration - - Weight 88.5 kg (195 lb) 12/31/2024 10:16 AM EDT Height 165.7 cm (5' 5.25 ) 12/31/2024 10:16 AM E DT Body Mass Index 32.2 12/31/2024 10:16 AM EDT documented in this encounter Functional Status * Over the past 2 weeks, how often have you been bothered by any of the following problems? Question Answer Date of Assessment Author Patient Health Questionnaire -2 Score 5 12/31/2024 10:18 AM EDT Pat Champagne MA * Little interest or pleasure in doing things Answer Date of Assessment Author More than half the days 12/31/2024 10:18 AM EDT Pat Champagne MA * Feeling down, depressed, or hopeless Answer Date of Assessment Author Nearly every day 12/31/2024 10:18 AM EDT Pat Champagne MA * Trouble falling or staying asleep, or sleeping too much Answer Date of Assessment Author Nearly every day 12/31/2024 10:18 AM EDT Pat Champagne MA * Feeling tired or having little energy Answer Date of Assessment Author More than half the days 12/31/2024 10:18 AM EDT Pat Champagne MA * Poor appetite or overeating Answer Date of Assessment Author More than half the days 12/31/2024 10:18 AM EDT Pat Champagne MA * Feeling bad about yourself - or that you are a failure or have let yourself or your family down Answer Date of Assessment Author More than half the days 12/31/2024 10:18 AM EDT Pat Champagne MA * Trouble concentrating on things, such as reading the newspaper or watching television Answer Date of Assessment Author More than half the days 12/31/2024 10:18 AM EDT Pat Champagne MA * Moving or speaking so slowly that other people could have noticed? Or the opposite - being so fidgety or restless that you have been moving around a lot more than usual. Answer Date of Assessment Author Not at all 12/31/2024 10:18 AM EDT Pat Champagne MA * Thoughts that you would be better off or hurting yourself in some way Answer Date of Assessment Author Several days 12/31/2024 10:18 AM EDT Pat Champagne MA * Patient Health Questionnaire-9 Score Answer Date of Assessment Author 17 12/31/2024 10:18 AM EDT Pat Champagne MA * How difficult have these problems made it for you to do your work, take care of things at home, or get along with other people? Answer Date of Assessment Author Extremely difficult 12/31/2024 10:18 AM EDT Pat Null MA documented as of this encounter Progress Notes * Shaylee Obrien MD - 12/31/2024 10:30 AM EDT SUBJECTIVE: Vanessa Nash is a 49 y.o. year old female who presents for follow up labs/OA. Denies recent illness, injury, or hospitalization. Labs on 10/21/2024 showed improved lipid profile, normal LFTs, BMP. She had a urine cytology ordered by nephrology in the workup of renal cysts, it was negative. She was seen by orthopedics due to de Quervain tenosynovitis, she declined steroid injection and has continue using hand brace. She will see them for left knee OA. She remains committed to avoid polypharmacy including the steroids, she is very frustrated as she has tried PT for hand and knee pain with no significant improvement of symptoms. She continues to work as soon as she recovers from pain and is very functional for few weeks only. She finds it very difficult to continue going on with this pains. She continues to see psychotherapist. Acute Concerns: Social History Social History Narrative Lives with her older son, her 3 kids (ages 10-12-15), they're looking for a permanent home. Unemployed Problem List[1] Family History[2] Review of Systems Constitutional: Negative for chills, fatigue and fever. HENT: Negative for congestion, ear pain, nosebleeds, rhinorrhea, sinus pressure, sore throat and trouble swallowing. Eyes: Negative for pain and discharge. Respiratory: Negative for cough, chest tightness and shortness of breath. Cardiovascular: Negative for chest pain, palpitations and leg swelling. Gastrointestinal: Positive for abdominal pain. Negative for blood in stool, constipation, diarrhea and nausea. Endocrine: Negative for polydipsia and polyuria. Genitourinary: Negative for dysuria, frequency, genital sores, pelvic pain and vaginal discharge. Musculoskeletal: Positive for arthralgias and gait problem. Negative for back pain and neck pain. Skin: Negative for rash. Allergic/Immunologic: Negative for environmental allergies. Neurological: Negative for dizziness, seizures, weakness, light-headedness and headaches. Hematological: Negative for adenopathy. Psychiatric/Behavioral: Negative for agitation, behavioral problems, self-injury and suicidal ideas. The patient is nervous/anxious. OBJECTIVE: Vitals: 12/31/24 1016 BP: 116/64 Pulse: 82 Resp: 14 Temp: 98.1 ??F (36.7 ??C) Physical Exam HENT: Right Ear: Tympanic membrane and ear canal normal. Left Ear: Tympanic membrane and ear canal normal. Mouth/Throat: Mouth: Mucous membranes are moist. Pharynx: No oropharyngeal exudate or posterior oropharyngeal erythema. Eyes: Pupils: Pupils are equal, round, and reactive to light. Cardiovascular: Rate and Rhythm: Regular rhythm. Pulses: Normal pulses. Heart sounds: Normal heart sounds. No murmur heard. Pulmonary: Breath sounds: Normal breath sounds. Abdominal: General: Bowel sounds are normal. Palpations: Abdomen is soft. Tenderness: There is no abdominal tenderness. Musculoskeletal: Right wrist: Tenderness (wrist brace on) present. Decreased range of motion. Cervical back: Neck supple. Left knee: Decreased range of motion. Tenderness present over the medial joint line, MCL and patellar tendon. Skin: General: Skin is warm. Neurological: General: No focal deficit present. Mental Status: She is alert and oriented to person, place, and time. Psychiatric: Attention and Perception: Attention normal. Mood and Affect: Mood is depressed. Affect is labile. Speech: Speech normal. Behavior: Behavior normal. Problem List Items Addressed This Visit Post-traumatic osteoarthritis of left knee She has orthopedic appointment pending, she tells me that she will definitely declined any interventional procedure or injection. She declines to be referred to physical therapy I will refer to in-house chronic pain management program Will follow-up in 3 months, will work on weight reduction and she is advised to continue to follow-up closely with psychotherapist Relevant Orders [facility] Tenosynovitis of right wrist Seen by orthopedics, declined steroid injection or OT. Referred to in-house chronic pain clinic Relevant Orders [facility]erral to [facility] Hyperlipidemia Significant improvement on Crestor 20 mg, will continue to medications and follow lipids in 1 year. Class 1 obesity due to excess calories without serious comorbidity with body mass index (BMI) of 32.0 to 32.9 in adult Discussed re weight reduction options including exercise, life style modifications, diet. Recommended to decrease soda and sugary beverage consumption, increase protein intake with meals (at least 1 portion of protein with each meal) to assist with satiety, increase dietary fiber Recommended at least 150 min/week of moderate intensity exercise. Pelvic pain in female Most likely related to adhesions from previous surgery, discussed about constipation, postprandial ambulation and increase water intake She is scheduled to see GI in 2 months She did not make appointment with CERTIFIED PHARMACY TECH, we discussed about holding off on a second opinion from CERTIFIED PHARMACY TECH until after she is seen by GI. Take Tylenol as needed Relevant Medications DULoxetine (Cymbalta) [address] capsule Other Relevant Orders [facility] Generalized anxiety disorder with panic attacks Venlafaxine was DC'd by trailhead construction worker, will start duloxetine 30 mg and follow-up in 4 to 6 weeks Continue close follow-up with psychotherapist, we discussed about CBT, relaxation techniques and other ways to control panic attacks She feels safe at home and is able to reach out for safety Relevant Medications DULoxetine (Cymbalta) [address] capsule Cyst of left kidney She has 1 kidney, followed by trailhead construction worker. She is to be follow-up every year. Relevant Medications DULoxetine (Cymbalta) [address] capsule Other Visit Diagnoses Screening for colon cancer - Primary Relevant Orders Cologuard?? colon cancer screening Dietary counseling Exercise counseling Follow Up: Medications Ordered Prior to Encounter[3] [1] Patient Active Problem List Diagnosis Tobacco dependence History of right nephrectomy Chronic suprapubic pain S/P CLEMENTINE-BSO (total abdominal hysterectomy and bilateral salpingo-oophorectomy) H/O left knee surgery Hyperlipidemia Cyst of left kidney Generalized anxiety disorder with panic attacks Arthritis of left knee PTSD (post-traumatic stress disorder) Tenosynovitis of right wrist Preventative health care Pelvic pain in female Post-traumatic osteoarthritis of left knee Primary osteoarthritis of both hips Encounter for immunization Panic disorder Class 1 obesity due to excess calories without serious comorbidity with body mass index (BMI) of 32.0 to 32.9 in adult [2] No family history on file. [3] Current Outpatient Medications on File Prior to Visit Medication Sig Dispense Refill Acetaminophen 500 MG capsule Take one to two tablets as needed for fever or pain every 6 hours 90 capsule 3 lidocaine (Xylocaine) 5 % ointment APPLY TOPICALLY IF NEEDED FOR FOR MILD PAIN 35.44 g 3 methocarbamol (Robaxin) 500 MG tablet TAKE 1 TABLET BY MOUTH THREE TIMES A DAY FOR 10 DAYS 30 tablet 3 rosuvastatin (Crestor) 20 MG tablet TAKE 1 TABLET BY MOUTH ONCE DAILY 90 tablet 3 [DISCONTINUED] venlafaxine XR (Effexor XR) 37.5 MG 24 hr capsule TAKE 1 CAPSULE BY MOUTH ONCE DAILYDO NOT BREAK, CRUSH, DISSOLVE OR CHEW 30 capsule 3 No current facility-administered medications on file prior to visit. documented in this encounter Miscellaneous Notes * Assessment & Plan Note - Shaylee Obrien MD - 12/31/2024 3:46 PM EDT Associated Problem(s): Post-traumatic osteoarthritis of left knee She has orthopedic appointment pending, she tells me that she will definitely declined any interventional procedure or injection. She declines to be referred to physical therapy I will refer to in-house chronic pain management program Will follow-up in 3 months, will work on weight reduction and she is advised to continue to follow-up closely with psychotherapist * Assessment & Plan Note - Shaylee Obrien MD - 12/31/2024 3:45 PM EDT Associated Problem(s): Tenosynovitis of right wrist Seen by orthopedics, declined steroid injection or OT. Referred to in-house chronic pain clinic * Assessment & Plan Note - Shaylee Obrien MD - 12/31/2024 3:44 PM EDT Associated Problem(s): Generalized anxiety disorder with panic attacks Venlafaxine was DC'd by trailhead construction worker, will start duloxetine 30 mg and follow-up in 4 to 6 weeks Continue close follow-up with psychotherapist, we discussed about CBT, relaxation techniques and other ways to control panic attacks She feels safe at home and is able to reach out for safety * Assessment & Plan Note - Shaylee Obrien MD - 12/31/2024 3:44 PM EDT Associated Problem(s): Cyst of left kidney She has 1 kidney, followed by trailhead construction worker. She is to be follow-up every year. * Assessment & Plan Note - Shaylee Obrien MD - 12/31/2024 3:43 PM EDT Associated Problem(s): Pelvic pain in female Most likely related to adhesions from previous surgery, discussed about constipation, postprandial ambulation and increase water intake She is scheduled to see GI in 2 months She did not make appointment with CERTIFIED PHARMACY TECH, we discussed about holding off on a second opinion from CERTIFIED PHARMACY TECH until after she is seen by GI. Take Tylenol as needed * Assessment & Plan Note - Shaylee Obrien MD - 12/31/2024 3:42 PM EDT Associated Problem(s): Class 1 obesity due to excess calories without serious comorbidity with bodymass index (BMI) of 32.0 to 32.9 in adult Discussed re weight reduction options including exercise, life style modifications, diet. Recommended to decrease soda and sugary beverage consumption, increase protein intake with meals (at least 1 portion of protein with each meal) to assist with satiety, increase dietary fiber Recommended at least 150 min/week of moderate intensity exercise. * Assessment & Plan Note - Shaylee Obrien MD - 12/31/2024 3:42 PM EDT Associated Problem(s): Hyperlipidemia Significant improvement on Crestor 20 mg, will continue to medications and follow lipids in 1 year. documented in this encounter Plan of Treatment Upcoming Encounters Date Type Department Care Team (Late st Contact Info) Description 01/11/2025 11:00 AM EDT Office Visit [facility] [address] [place] [phone] 03/03/2025 11:15 AM EST Office Visit [facility] [address] [place] [address] [phone] Shaylee Obrien MD [address] [place] [phone] Scheduled Orders Name Type Priority Associated Diagnoses Orde r Schedule Cologuard colon cancer screening Lab Routine Screening for colon cancer Ordered: 12/31/2024 Scheduled Referrals Name Type Priority Associated Diagnoses Orde r Schedule [facility] Outpatient Referral Routine Post-traumatic osteoarthritis of left knee Tenosynovitis of right wrist Pelvic pain in female Expected: 12/31/2024 (Approximate), Expires: 12/31/2025 documented as of this encounter Visit Diagnoses Diagnosis Screening for colon cancer- Primary Special screening for malignant neoplasms, colon Post-traumatic osteoarthritis of left knee Tenosynovitis of right wrist Mixed hyperlipidemia Class 1 obesity due to excess calories without serious comorbidity with body mass index (BMI) of 32.0 to 32.9 in adult Pelvic pain in female Unspecified symptom associated with female genital organs Generalized anxiety disorder with panic attacks Dietary counseling Dietary surveillance and counseling Exercise counseling Cyst of left kidney Unspecified congenital cystic kidney disease documented in this encounter Additional Health Concerns Assessment Noted Time PHQ-9 Depression Total Score: 17 025 10:18 AM EDT documented as of this encounter Care Teams Water Control Station Engineer Relationship Specialty Start Date End Date Shaylee Obrien MD [address] [place] [address] [phone] PCP - General Internal Medicine 11/15/23 documented as of this encounter
--- NOTE | ~2025-01-05 | XR_ITS ---
EXAMINATION: XR KNEE, LEFT CLINICAL INFORMATION: pain COMPARISON: 11/30/2024 TECHNIQUE: Four views of the left knee. FINDINGS: No fracture, dislocation, or suspicious bone lesion. There is normal alignment. There are 3 transverse compression screws in the proximal tibia metaphysis, fixating a prior tibial plateau fracture. The fracture appears healed. The hardware is well seated. There is no acute fracture. Persistent mild depression of the medial tibial plateau is present with mild joint space narrowing of all 3 compartments. There is a moderate to large sized suprapatellar joint effusion. XR/XR knee LT 4V IMPRESSION: 1. No acute bony abnormalities of the left knee. 2. Fixated and healed previous tibial plateau fracture. 3. Joint effusion. 4. No significant change from 11/30/2024. Electronically signed by: Gus Hernandez MD 01/05/2025 01:57 PM EDT
[2025-01-05 11:17] VITALS: BP 106/77; PULSE 79; RESP 20; TEMP 36.2; O2SAT 99; BMI 31.5
--- NOTE | 2025-01-05 13:42 | ED_ITS ---
HPI - General Adult General Chief complaint: Extremity Injury, Lower Stated complaint: L knee swelling Time Seen by Provider: 01/05/25 16:30 History of Present Illness ED Provider: juan jose HPI narrative: 49 F with remote L tib plateau Fx s/p ORIF. Screw in place. Operation was in [place]. No f/u here in [facility]. Pain acute on chronic. Swelling, no fever. Related Data Home Medications ?Medication ?Instructions ?Recorded ?Confirmed venlafaxine 37.5 mg 37.5 mg PO QAM 06/03/2310/16 capsule,extended release 24 hr acetaminophen 500 mg tablet 500 - 1,000 mg PO Q6H PRN fever 12/10/23 11/02/24 lidocaine 5 % topical ointment topical mild pain 11/0211/02/24 meloxicam 15 mg tablet 15 mg PO DAILY 11/02/2410/16 rosuvastatin 20 mg tablet 20 mg PO DAILY 11/02/2410/16 Previous Rx's ?Medication ?Instructions ?Recorded acetaminophen 500 mg tablet 1,000 mg (2 x 500 mg) PO Q 8H PRN 11/30/24 (Tylenol Extra Strength) pain #30 tabs diclofenac sodium 1 % topical gel 4 g topical QID PRN pain (scale 01/05/25 (Voltaren Arthritis Pain) score 4-6) #100 grams morphine 15 mg immediate release 15 mg PO BID PRN pain #7 tabs 01/05/25 tablet Allergies Allergy/AdvReac Type Severity Reaction Status Date / Time No Known Allergies Allergy Verified 01/05/25 11:18 [facility] Past Medical History Medical History (Updated 01/06/25 @ 00:00 by Felipe Tenorio) Hyperlipidemia Anxiety Surgical History Hx of kidney removal Hx of knee surgery Hx of hysterectomy Family History Family History Father CAD (coronary artery disease) Mother CAD (coronary artery disease) Social History Social History Alcohol intake: current Alcohol intake frequency: holidays/special occasions only Patient Tobacco Use Status: Current someday Tobacco user Tobacco use type: Cigar Advance Directives: No Advance Directives Information Provided: No Do you have a plan to hurt others: No Plan Current occupational status: unemployed Current occupation: right hand dominant Physical Exam ED Exam Exam: Left knee mildly swollen throughout. Perhaps some mild palpable effusion no e rythema warmth or skin breaks. No calf tenderness no distal swelling neurovascularly intact throughout. Hip and thigh unremarkable nontender Vital Signs: Vital Signs - 24 hr 01/05/25 11:17 Temperature 97.2 F Pulse Rate 79 Respiratory Rate 20 Blood Pressure 106/77 Pulse Oximetry 99 Oxygen Delivery Method Room Air BMI result Body Mass Index 31.5 Course Course Course Narrative: RME, this is a rapid medical exam performed by Betito Prajapati please refer to primary provider for complete H&P- 49-year-old female presents for evaluation of left knee pain after slipping yesterday. She did not fall to the ground and was able to catch herself. She is unable to walk today. Plan for x-ray Medical Decision Making Medical Decision Making MDM Narrative: Medical Decision Makin-year-old female with previous operation to the knee with tibial plateau fracture chronic recurrent pain. He has not seen orthopedist in the [place] No signs of infection. No hardware malposition described an x-ray. No clinical signs to suggest DVT acute joint infection. Pain control close follow up with local orthopedist for potential discussion of hardware removal or arthroscopy Preliminary Favored Differential Diagnosis: Arthritis, chronic posttraumatic arthritis, rheumatologic arthritis among additional considered etiologies Testing Interpreted Independently: ?See below for details Radiology or Lab testing Results Reviewed: ?See below for details Consults: ?See below for details Independent Historians/External Chart Reviews: ?See below for details Social Determinants of Health Impacting MDM/Planning: ?See below for details Discharge Plan Discharge Clinical Impression: Arthritis Patient Disposition: Home, Self-Care Instructions: Osteoarthritis (ED) Additional Instructions: Continue with orthopedics follow up, take morphine only as needed for severe pain Prescriptions: New diclofenac sodium [Voltaren Arthritis Pain] 1 % gel 4 g topical QID PRN (Reason: pain (scale score 4-6)) Qty: 100 0RF Rx Instructions: apply to single knee, ankle, foot; for foot includes sole/toes/top of foot morphine 15 mg tablet 15 mg PO BID PRN (Reason: pain) Qty: 7 0RF Rx Instructions: Partial Fill upon patient request. No Action acetaminophen [Tylenol Extra Strength] 500 mg tablet 1,000 mg PO Q8H PRN (Reason: pain) Qty: 30 0RF acetaminophen 500 mg tablet 500 - 1,000 mg PO Q6H PRN (Reason: fever) venlafaxine 37.5 mg capsule,extended release 24hr 37.5 mg PO QAM meloxicam 15 mg tablet 15 mg PO DAILY rosuvastatin 20 mg tablet 20 mg PO DAILY lidocaine 5 % ointment topical Ref[place]: [facility] [place]Provider Group, Orthopedics] Stand Alone Forms: Work/School Release Discharge Date/Time: 01/05/25 16:49 Print Language: Tamazight
--- NOTE | 2025-01-05 16:33 | PC.NURSE ---
pt was seen in the provider in triage chair. she is agreeable and aware of the ed care plan
--- OUTSIDE RECORDS SUMMARY | 2025-01-05 21:09 | XMS_ITS | Encounter Summary ---
Author Organization [employer] Address [address] [place] [address] Care Team Providers Care Chore Worker Name Role Phone Shaylee Obrien MD Primary Care Provider + Encounter Details Date Type Department Care Team (Latest Contact Info) Description 12/31/2024 Travel Social History Tobacco Use Types Packs/Day Years [...] AM EST documented as of this encounter Functional Status * Over the [...] Author Not at all 12/31/2024 10:18 AM EDPat Leon MA * Thoughts that you would be [...] Null MA documented as of this encounter Plan of Treatment Upcoming Encounters Date Type Department Care Team (Late st Contact Info) Description 01/11/2025 11:00 AM EDT Office Visit [facility] [address] [place] [id number] 03/03/2025 11:15 AM EST Office Visit [address] [id number] Shaylee Obrien MD [address] [place] [phone] documented as of this encounter Visit Diagnoses Not on filedocumented in this encounter Additional Health Concerns Assessment Noted Time PHQ-9 Depression Total Score: 17 025 10:18 AM EDT documented as of this encounter Care Teams Chore Worker Relationship Specialty Start Date End Date Shaylee Obrien MD [address] [place] [phone] PCP - General Internal Medicine 11/15/23 documented as of this encounter
--- OUTSIDE RECORDS SUMMARY | 2025-01-05 21:09 | XMS_ITS | Clinical Summary ---
Author Organization [employer] Address [address] [place] [address] [address] [place] [address] Care Team Providers Care Technical Support Coordinator Name Role Phone Amy Rogers MD Primary Care Provider + Allergies No known active allergies Medications * This document contains information received from the source organization and may not represent a complete record from that organization. Acetaminophen 500 MG capsule Take one to two tablets as needed for fever or pain every 6 hours 90 capsule 3 07/23/19 25 Active rosuvastatin (Crestor) 20 MG tablet TAKE 1 TABLET BY MOUTH ONCE DAILY 90 tablet 3 12/10/19 25 Active methocarbamol (Robaxin) 500 MG tabletIndications :Primary osteoarthritis of both hips TAKE 1 TABLET BY MOUTH THREE TIMES A DAY FOR 10 DAYS 30 tablet 3 12/10/19 25 Active lidocaine (Xylocaine) 5 % ointmentIndicatio ns:Post-traumatic osteoarthritis of left knee APPLY TOPICALLY IF NEEDED FOR FOR MILD PAIN 35.44 g 3 12/10/19 25 Active DULoxetine (Cymbalta) [address] capsule Take 1 capsule (30 mg) by mouth Once per day. Do not crush or chew. 60 capsule 3 01/01/20 25 2025 Active rosuvastatin (Crestor) 20 MG tablet Take 1 tablet (20 mg) by mouth Once per day. 30 tablet 11 12/23/19 24 2024 Discontinued venlafaxine XR (Effexor XR) 37.5 MG 24 hr capsule Take 1 capsule (37.5 mg) by mouth Once per day. Do not crush or chew. 30 capsule 4 07/23/19 25 2024 Discontinued lidocaine (Xylocaine) 5 % ointmentIndicatio ns:Post-traumatic osteoarthritis of left knee Apply topically if needed for mild pain. 50 g 3 07/23/19 25 2024 Discontinued methocarbamol (Robaxin) 500 MG tabletIndications :Primary osteoarthritis of both hips Take 1 tablet (500 mg) by mouth 3 times daily for 10 days. 30 tablet 3 07/23/19 25 2024 Discontinued venlafaxine XR (Effexor XR) 37.5 MG 24 hr capsule TAKE 1 CAPSULE BY MOUTH ONCE DAILY DO NOT BREAK, CRUSH, DISSOLVE OR CHEW 30 capsule 3 12/10/19 25 2024 Discontinued(S kevin effects) Active Problems Problem Noted Date Diagnosed Date Class 1 obesity due to exces s calories without serious comorbidity with body mass index (BMI) of 32.0 to 32.9 in adult 12/31/2024 Assessment & Plan (12/31/2024 3:42 PM EDT): Discussed re weight reduction options including exercise, life style modifications, diet. Recommended to decrease soda and sugary beverage consumption, increase protein intake with meals (at least 1 portion of protein with each meal) to assist with satiety, increase dietary fiber Recommended at least 150 min/week of moderate intensity exercise. Post-traumatic osteoarthritis of left knee 01/19 Assessment & Plan (12/31/2024 3:46 PM EDT): She has orthopedic appointment pending, she tells me that she will definitely declined any interventional procedure or injection. She declines to be referred to physical therapy I will refer to in-house chronic pain management program Will follow-up in 3 months, will work on weight reduction and she is advised to continue to follow-up closely with psychotherapist Assessment & Plan (07/22/2024 10:55 AM EDT): [...] pelvic cyst resection 12/2022 Assessment & Plan (12/31/2024 3:43 PM EDT): Most likely related to adhesions from previous surgery, discussed about constipation, postprandial ambulation and increase water intake She is scheduled to see GI in 2 months She did not make appointment with [facility]IOR [facility]AREPOINT DEVELOPER, we discussed about holding off on a second opinion from [facility]POINT DEVEL[facility] until after she is seen by GI. Take Tylenol as needed Assessment & Plan (07/22/2024 10:58 AM EDT): Related to adhesions from previous surgeries. Recommended to avoid constipation, increase physical activity especially after meals, increase water intake etc. I gave her information regarding GI referral so that she can to schedule appointment I gave her information regarding [facility]EL[facility] referral that she has requested previously again we discussed that it is very unlikely that her [facility]POINT DEVELOPER can help relieve any the case of adhesions, she will get back to me as needed abdominal/pelvic pain Assessment & Plan (01/20/2024 12:04 PM EST): Ro colon pathology, she was referred to GI for colonoscopy. It could also be related to pelvic adhesions, I d/w patient re potential sxs, she will re consult prn uTI , incontinence sxs. A referral to [facility]POINT DEVEL[facility] has been made at her request, she's aware that she needs to bring surgical information to [facility] DEVEL[facility] and that sxs are most likely NOT related to SENIOR SHAREPOINT DEVELOPER cause. Tenosynovitis of right wrist 12/23/2023 Assessment & Plan (12/31/2024 3:45 PM EDT): Seen by orthopedics, declined steroid injection or OT. Referred to in-house chronic pain clinic Assessment & Plan (12/23/2023 9:55 AM EDT): - discussed with pt results of MRI findings, she will f/u with ortho in 2 weeks Preventative health care 12/23/2023 Assessment & Plan (12/23/2023 9:56 AM EDT): - pt agreed to have Hep-B series starting today, declined to have influenza IZ today PTSD (post-traumatic stress disorder) 11/29/2023 Arthritis of left knee 11/15/2023 Assessment & [...] right nephrectomy 03/04/2023 Chronic suprapubic pain 03/04/2023 S/P CLEMENTINE-BSO (total abdominal hysterectomy and bilateral salpingo-oophorectomy) 03/04/2023 Overview (11/15/2023): Due to DUB/fibroid, no hx malignancy H/O left knee surgery 03/04/2023 Hyperlipidemia 03/04/2023 Assessment & Plan (12/31/2024 3:42 PM EDT): Significant improvement on Crestor 20 mg, will continue to medications and follow lipids in 1 year. Assessment & Plan (12/23/2023 9:51 AM EDT): [...] Cyst of left kidney 03/04/2023 Overview (10/21/2024): [facility] Renal US 09/17/23: Left renal complex cyst on lower pole, with septations and internal echoes but no vascularity, measures 3.2 x 3.4 x 3.3 cm. Absent right kidney. [facility] renal US on 11/19/2024 showed 4 cm septated left renal cyst/Bosniak 1 Assessment & Plan (12/31/2024 3:44 PM EDT): She has 1 kidney, followed by automatic spooler operator. She is to be follow-up every year. Assessment & Plan (11/15/2023 1:30 PM EDT): She has been referred to Nephrology already, will obtain BMP. Obtain previous US from previous PCP. Generalized anxiety disorder with panic attacks 03/04/2023 Assessment & Plan (12/31/2024 3:44 PM EDT): Venlafaxine was DC'd by automatic spooler operator, will start duloxetine 30 mg and follow-up in 4 to 6 weeks Continue close follow-up with psychotherapist, we discussed about CBT, relaxation techniques and other ways to control panic attacks She feels safe at home and is able to reach out for safety Assessment & Plan (07/22/2024 10:56 AM EDT): [...] mg and follow up in 6 weeks. Encounters * This document contains information received from the source organization and may not represent a complete record from that organization. Date Type Department Care Team Description 01/05/2025 Orders Only [facility] External Provider, [facility] 12/31/2024 10:30 AM EDT Office Visit [facility] [address] [place] [phone] Amy Rogers MD Screening for colon cancer (Primary Dx); Post-traumatic osteoarthritis of left knee; Tenosynovitis of right wrist; Mixed hyperlipidemia; Class 1 obesity due to excess calories without serious comorbidity with body mass index (BMI) of 32.0 to 32.9 in adult; Pelvic pain in female; Generalized anxiety disorder with panic attacks; Dietary counseling; Exercise counseling; Cyst of left kidney 12/31/2024 Travel 12/30/2024 Telephone [facility] [address] [place] [phone] Amy Rogers MD Chart prep 12/23/2024 Patient Outreach [facility] [address] [place] [phone] Amy Rogers MD Pre-visit Planning (SDOH screening completed on 04/17/2024) 12/08/[address] [address] Amy Rogers MD Primary osteoarthritis of both hips; Post-traumatic osteoarthritis of left knee 11/30/2024 Orders Only [facility] External Provider, [facility] 11/23/2024 3:20 PM EDT Office Visit [facility] [address] [place] [phone] Brandy Rosado FNP Right wrist pain (Primary Dx) 11/23/2024 Travel 10/21/2024 Results Follow-Up [address] [address] Amy Rogers MD Hepatic Function Panel, Lipid Panel with Reflex to Direct LDL 10/21/2024 Results Follow-Up [address] [address] Amy Rogers MD US Renal Complete from Last 3 Months Immunizations Immunization Administration [...] 14 12/31/2024 10:16 AM EDT Oxygen Saturation 99% 11/23/2024 3:57 PM EDT Inhaled Oxygen Concentration - - Weight 88.5 kg (195 lb) 12/31/2024 10:16 AM EDT Height 165.7 cm (5' 5.25 ) 12/31/2024 10:16 AM E DT Body Mass Index 32.2 12/31/2024 10:16 AM EDT Plan of Treatment Upcoming Encounters Date Type Department Care Team (Late st Contact Info) Description 01/11/2025 11:00 AM EDT Office Visit [facility] [address] [place], [place] [phone] 03/03/2025 11:15 AM EST Office Visit [facility] [address] [place] [address] Amy Rogers MD [address] [place] [address] Health Maintenance Due Date Last Done Comments CT Colonography 1975 Colonoscopy 1975 Colorectal Cancer Screening 1975 FIT DNA/Cologuard 1975 FIT 1975 FOBT 1975 Sigmoidoscopy 1975 DTaP/Tdap/Td Vaccines (1 - Tdap) 1996 Hepatitis B Vaccines (2 of 3 - 19+ 3-dose series) 01/20/2024 12/23/2023 COVID-19 Vaccine ( - 2023-2 5 season) 2024 Influenza Vaccine (#1) 2024 01/20/2024 Mammogram 03/04/2025 03/04/2024 SDOH Screening 04/17/2025 04/17/2024 Depression Monitoring 07/01/2025 12/31/2024 , 12/31/2024 Alcohol/Substance Use Screening 12/31/2025 12/31/2024 Disability Screening 12/31/2025 12/31/2024 Family Planning (PISQ) 12/31/2025 12/31/2024 Tobacco Screening 12/31/2025 12/31/2024 Zoster Vaccines (1 of 2) 2027 Lipid Panel 10/20/2029 10/20/2024, 11/20/2023 RSV Patients and Patients Aged 60 years [...] Name Priority Date/Time Associated Diagnosis Comments XR KNEE 4+ VIEWS LEFT Routine 01/05/2025 1:48 PM EDT XR WRIST 3+ VIEWS RIGHT Routine 11/30/2024 [...] Relevant to Health Maintenance Results * XR Knee 4+ Views Left (01/05/2025 1:48 PM EDT) Only the most recent of2 resultswithin the time period is included. Anatomical Region Laterality Modality Lower Extremities, Knee Left [facility] 01/05/2025 1:48 PM EDT Narrative 01/05/2025 2:00 PM EDT [address] [address] XRay Report Signed Patient: Vanessa Nash MR#: [id number] 05 : 1975 Acct:[id number] Age/Sex: 49 / F ADM Date: 01/05/25 Loc: HO.ED Attending Dr: Ordering Physician: Roge Prajapati Date of Service: 01/05/25 Procedure(s): XR knee LT 4V Accession Number(s): [id number] cc: UCHE FAITH MD; Roge Prajapati Reason for Exam: pain EXAMINATION: XR KNEE, LEFT CLINICAL INFORMATION: pain COMPARISON: 11/30/2024 TECHNIQUE: Four views of the left knee. [...] previous tibial plateau fracture. 3. Joint effusion. 4. No significant change from 11/30/2024. Electronically signed by: Gus Hernandez MD 01/05/2025 01:57 PM EDT Dictated By: Gus Hernandez MD Signed By: <Electronically signed by Gus Hernandez MD in OV> 01/05/25 1357 DD/ 1348 TD/TT: 01/05/25 135 Shoe Packer: Procedure Note Terri, Image - 01/05/[address] [address] XRay Report Signed Patient: Keshav Nash#: [id number] 05 : 1975Acct:[id number] Age/Sex: 49 / FADM Date: 01/05/25 Loc: .ED Attending Dr: Ordering Physician: Roge Prajapati Date of Service: 01/05/25 Procedure(s): XR knee LT 4V Accession Number(s): [id number] cc: UCHE FAITH MD; Roge Prajapati Reason for Exam: pain EXAMINATION: XR KNEE, LEFT CLINICAL INFORMATION: pain COMPARISON: 11/30/2024 TECHNIQUE: Four views of the left knee. [...] previous tibial plateau fracture. 3. Joint effusion. 4. No significant change from 11/30/2024. Electronically signed by: Gus Hernandez MD 01/05/2025 01:57 PM EDT Dictated By: Gus Hernandez MD Signed By: <Electronically signed by Gus Hernandez MD in OV> 01/05/25 1357 DD/ 1348 TD/TT: 01/05/25 1352 Shoe Packer: [facility] External Provider IMG XR PROCEDURES Edited Result - Final * XR Wrist 3+ Views Right (11/30/2024 9:05 AM EDT) Anatomical Region Laterality Modality Upper Extremities, Wrist Right Radiogr [facility] 11/30/2024 9:05 AM EDT Narrative 11/30/2024 9:13 AM EDT [address] [address] XRay Report Signed Patient: Vanessa Nash MR#: [id number] [birth year] : 1975 Acct:[id number] Age/Sex: 49 / F ADM Date: 11/30/24 Loc: HO.ED Attending Dr: Ordering Physician: Chencho Us DO Date of Service: 11/30/24 Procedure(s): XR wrist RT min 3V Accession Number(s): [id number] cc: [facility]; Chencho Us DO Reason for Exam: pain [...] Hernandez MD Signed By: <Electronically signed by uGs Hernandez MD in OV> 11/30/[address] DD/ 09 TD/TT: 11/30/24 09 Shoe Packer: Procedure Note Donotuseinterpreter, Image - 11/30/[address] [address] XRay Report Signed Patient: Edith NashR#: [id number] 05 : 1975Acct:[id number] Age/Sex: 49 / FADM Date: 11/30/24 Loc: HO.ED Attending Dr: Ordering Physician: Chencho Us DO Date of Service: 11/30/24 Procedure(s): XR wrist RT min 3V Accession Number(s): [id number] cc: [facility]; RosendowhitChencho DO Reason for Exam: pain EXAMINATION: XR [...] Gus Hernandez MD 11/30/2024 09:11 AM EDT Dictated By: Gus Hernandez MD Signed By: <Electronically signed by Gus Hernandez MD in OV> 11/30/24 09 DD/ 09 TD/TT: 11/30/24 0907 Shoe Packer: [facility] External Provider IMG XR PROCEDURES Edited Result - Final * (ABNORMAL) Urinalysis Complete (10/20/2024 10:53 AM EDT) Color Urine Dark Yellow [facility] Appearance Urine Cloudy [facility] PH 5.5 5.0 - 9.0 [facility] Glucose Urine UA Negative Negative mg/dL [facility] Urine Blood Negative Negative [facility] Specific [place] - Urine >=1.030(H) 1.005 - 1.025 [facility] Urine Protein 30 (1+)(A) Neg-Trace mg/dL [facility] Urine Ketones Trace Negative mg/dL [facility] Nitrite Urine Negative Negative [facility] Leukocyte Esterase Urine Trace(A) Negative [facility] RBC Urine 0-2 0 - 2 /HPF [facility] Urine WBC 11-20(A) 0 - 5 /HPF [facility] Urine Squamous Epithelial Cell >20 0 - 2 /HPF [facility] Urine Bacteria 4+ None Seen [facility] Hyaline Casts, Urine 3-5 0 - 2 /LPF [facility] 10/20/2024 10:5 3 AM EDT 10/20/2024 11:36 AM EDT us Generic External Data Provider LAB URINE ORDERAB LES Final Result [facility] [address] [place] [phone] * Cytopath-cell enhanced (10/20/2024 10:52 AM EDT) 10/20/2024 10:5 2 AM EDT 10/21/2024 8:50 AM EDT Narrative [facility] - 10/21/2024 3:01 PM EDT ----- ------- Name: Colon,Vanessa Age/Sex: 49/F : 1975 Unit#: [id number] Attend Dr: Donald Lazcano MD Re10/20/24 Status: DARIO REF Location: HO.HHCL Disch: ----- ------- SPEC : [id number] RECD: 10/21/24 STATUS: CEDRICK DONOHUE NUM: [id number] JJ: 10/20/24-[address] [facility] [address]: Donald Lazcano MD ENTERED: 10/21/24-1016 [...] developed and their performance characteristics determined by [facility]. They have not been cleared or approved by the U.S. Food and Drug Administration (FDA). However, the FDA has determined that such clearance or approval is not necessary. This laboratory is certified under the Clinical Laboratory Improvement Amendments of 1988 (CLIA) as qualified to perform high complexity clinical laboratory testing. Copies To: Donald Lazcano MD [facility] [address] [place] [address] Dr [address] [place] [address] [email or web address] [place] [address] CONTINUED ON NEXT PAGE ----- ------- Name: Vanessa Nash Age/Sex: 49/F : 1975 Unit#: [id number] Attend Dr: Donald Lazcano MD Re10/20/24 Status: DEP REF Location: [facility] Disch: ----- ------- SPEC : [id number] RECD: 10/21/24 STATUS: CEDRICK DONOHUE NUM: [id number] JJ: 10/20/[address] [facility] [address]: Donald Lazcano MD ENTERED: 10/21/24 SP TYPE: Cytology OTHR DR: Amy Rogers MD ORDERED: Cyto-enhanced ----- ------- Signed (signature on file) Sera Butterfield 10/21/24 1501 ----- ------- END OF REPORT us Generic External Data Provider LAB CYTOLOGY [place] Final Result [facility] [address] [place] [phone] * (ABNORMAL) Lipid Panel with Reflex to Direct LDL (10/20/2024 9:30 AM EDT) Triglycerides 186(H) <150 mg/dL [facility] Comment:Desirable Triglyceri de: less than 150 mg/dLBorderline High Triglyceride 150-199 mg/dLHigh Triglyceride: 200-499 mg/dLVery High Triglyceride: greater than or equal to 5OO mg/dL Cholesterol 190 <200 mg/dL [facility] Comment:Desirable Cholestero l: less than 200 mg/dLBorderline High Cholesterol: 200-239 mg/dLHigh Cholesterol: greater than 239 mg/dL LDL Cholesterol Calculated 97 <100 mg/dL [facility] Comment:Desirable LDL: less than 100 mg/dLNear Optimal/Above Optimal LDL: 110- 129 mg/dLBorderline High LDL: 130-159 mg/dLHigh LDL: 160-189 mg/dLVery High LDL: greater than or equal to 190 mg/dL HDL Cholesterol 56 >40 mg/dL [facility] Comment:Desirable HDL: great er than 40 mg/dL Note: This HDL assay may give artificially low results in patients with liver disease. Blood 10/20/2024 9:30 AM EDT 10/20/2024 11:13 AM EDT us Amy Rogers MD LAB BLOOD ORDERABLES Fin al Result [facility] [address] [place] [phone] * Hepatic Function Panel (10/20/2024 9:30 AM EDT) Bilirubin, Total 0.3 0.0 - 1.0 mg/dL [facility] Bilirubin, Direct 0.1 0.0 - 0.5 mg/dL [facility] Aspartate Amino Transferase 27 5 - 31 U/L [facility] Alanine Aminotransferase 30 0 - 31 U/L [facility] Total Protein 6.7 6.5 - 8.0 g/dL [facility] Albumin Level 4.1 3.5 - 5.0 g/dL [facility] Alkaline Phosphatase 100 39 - 117 U/L [facility] Blood Venous blood specimen / Unknown 10/20/2024 9:30 AM EDT 10/20/2024 11:13 AM EDT us Amy Rogers MD LAB BLOOD ORDERABLES Fin al Result Performing Organization Address [facility] Co de Phone Number [facility] [address] [place] [phone] * (ABNORMAL) Basic Metabolic Panel (10/20/2024 9:30 AM EDT) Sodium 141 135 - 145 mmol/L [facility] Potassium 3.8 3.3 - 5.1 mmol/L [facility] Chloride 106 96 - 108 mmol/L [facility] Carbon Dioxide 29 22 - 29 mmol/L [facility] Anion Gap 10(L) 12 - 20 [facility] Urea Nitrogen (BUN) 9 9 - 16 mg/dL [facility] Creatinine, Serum 0.82 0.5 - 1.4 mg/dL [facility] Estimated Glomerular Filt Rate >60 [facility] Comment:Chronic Kidney Disea se: Estimated GFR < 60 mL/min/1.38w2Gtvqcv Kidney Disease: Estimated GFR < 15 mL/min/1.73m2 Glucose 85 60 - 115 mg/dL [facility] Calcium 9.0 8.4 - 10.2 mg/dL [facility] 10/20/2024 9:30 AM EDT 10/20/2024 11:13 AM EDT us Generic External Data Provider LAB BLOOD ORDERAB LES Final Result Performing Organization Address [facility] Co de Phone Number [facility] [address] [place] [phone] * US Renal Complete (10/19/2024 3:04 PM EDT) Anatomical Region Laterality Modality Kidney Ultrasound 10/19/2024 3:04 PM EDT Narrative 10/19/2024 3:05 PM EDT [address] [address] Ultrasound Report Signed Patient: Colon,Vanessa MR#: [id number] [birth year] : 1975 Acct:[id number] Age/Sex: 49 / F ADM Date: 10/19/24 Loc: .US Attending Dr: Donald Lazcano MD Ordering Physician: Donald Lazcano MD Date of Service: 10/19/24 Procedure(s): US renal BI Accession Number(s): [id number] cc: Donald Lazcano MD; Amy Rogers MD [...] 10/19/24 1505 DD/ 1504 TD/TT: 10/19/24 1504 Shoe Packer: Procedure Note Donotuseinterpreter, Image - 10/19/2024 [place] [address] Ultrasound Report Signed Patient: Edith NashR#: [id number] [birth year] : 1975Acct:[id number] Age/Sex: 49 / FADM Date: 10/19/24 Loc: .US Attending Dr: Donald Lazcano MD Ordering Physician: Donald Lazcano MD Date of Service: 10/19/24 Procedure(s): US renal BI Accession Number(s): [id number] cc: Donald Lazcano MD; Amy Rogers MD [...] 10/19/24 1505 DD/ 1504 TD/TT: 10/19/24 1504 Shoe Packer: us [facility] External Provider IMG US PROCEDURES Final Result * BI Mammogram Screening Tomosynthesis Bilateral (03/04/2024 10:15 AM EST) Anatomical Region Laterality Modality Breast Bilateral Mammography 03/04/2024 10:1 5 AM EST Narrative 03/16/2024 2:04 PM EST [address] [place] [address] Mammography Report Signed Patient: Vanessa Nash MR#: [id number] [birth year] : 1975 Acct:[id number] Age/Sex: 48 / F ADM Date: 03/04/24 Loc: HO.MAMMO Attending Dr: Amy Rogers MD Ordering Physician: Amy Rogers MD Results: 1Ne gative Date of Service: 03/04/24 Follow Up: 1 Year From [facility] ina Mammogram Procedure(s): MM tomosynthesis screening BI Accession Number(s): [id number] cc: Amy Rogers MD EXAMINATION: MM SCREENING [...] 03/16/24 1401 DD/ 1015 TD/TT: 03/04/24 1025 Shoe Packer: Procedure Note Donotuseinterpreter, Image - 03/16/2024 Ck [facility] [address] [place] [address] Mammography Report Signed Patient: Keshav Nash#: [id number] [birth year] : 1975Acct:[id number] Age/Sex: 48 / FADM Date: 03/04/24 Loc: HO.MAMMO Attending Dr: Amy Rogers MD Ordering Physician: Amy Rogers MDResults: 1Ne gative Date of Service: 03/04/24Follow Up: 1 Year From [facility] Mammogram Procedure(s): MM tomosynthesis screening BI Accession Number(s): [id number] cc: Amy Rogers MD EXAMINATION: MM SCREENING [...] DO 03/16/2024 02:01 PM [facility] [place] Dictated By: Brittany Gilliland DO Signed By: <Electronically signed by Brittany Gilliland DO in OV> 03/16/24 1401 DD/ 1015 TD/TT: 03/04/24 1025 Shoe Packer: Amy Rogers MD IMG BI PROCEDURES Final Result * Hepatitis Panel, General (11/20/2023 9:46 AM EDT) Hepatitis A IgM Nonreactive Nonreactive [facility] Comment:IgM antibodies to PASTRANA V not detected; does not exclude earlyacute or recovered HAV infection. ~Hepatitis B Surface Antibody NONREACTIVE Nonreactive [facility] Comment:Nonreactive: < 8.00 mIU/mL Hepatitis B Core Antibody Nonreactive Nonreactive [facility] Hepatitis C Antibody Nonreactive Nonreactive [facility] Comment:Antibodies to HCV no t detected; does not exclude early acuteHCV infection. Hepatitis B Surface Ag Negative Negative [facility] Blood 11/20/2023 9:46 AM EDT 11/20/2023 11:03 AM EDT Amy Rogers MD LAB BLOOD ORDERABLES Fin al Result [facility] [address] [place] [phone] * HIV-1/2 Antigen and Antibodies, Fourth Generation, with Reflexes (11/20/2023 9:46 AM EDT) HIV AB/AG Nonreactive Nonreactive [facility] Comment:HIV-1 p24 Ag and/or HIV-1/HIV-2 Ab not detected.A test result that is nonreactive does not exclude thepossibility of exposure to or infection with HIV-1 and/orHIV-2. Nonreactive results in this assay for individualswith prior exposure to HIV-1 and/or HIV-2 may be due toantigen and antibody levels that are below the limit ofdetection of this assay.The [employer] HIV Ag/Ab Combo assay result andsupplemental assay results should be interpreted inconjunction with the patient's clinical presentation,history and other laboratory results. If the results areinconsistent with clinical evidence, additional testing issuggested to confirm the result. Blood Venous blood specimen / Unknown 11/20/2023 9:46 AM EDT 11/20/2023 11:03 AM EDT Amy Rogers MD LAB BLOOD ORDERABLES Fin al Result [facility] [address] [place] [phone] from Last 3 Months or Most Recently Relevant to Health Maintenance [place] [address] [address] STANDARD Care Teams Technical Support Coordinator Relationship Specialty Start Date End Date Amy Rogers MD [address] [place] [phone] PCP - General Internal Medicine 11/15/23
--- OUTSIDE RECORDS SUMMARY | 2025-01-05 21:09 | XMS_ITS | Encounter Summary ---
Author Organization [facility] Address [address] [place] [address] 7 [place] [address] Care Team Providers Care Humanities Department Chair Name Role Phone Shaylee Obrien MD Primary Care Provider + Reason for Visit * Reason Comments Med Refill Encounter Details Date Type Department Care Team (Late Contact Info) Description 09/06/2023 Refill [facility] [address] [place] [address] [phone] Vijay Barron MD [address] [place] [address] [phone] Social History Tobacco Use Types Packs/Day Years [...] Department Care Team (Late Contact Info) Description 01/11/2025 11:00 AM EDT Office Visit [facility] [address] [place] [address] [phone] 03/03/2025 11:15 AM EST Office Visit [facility] [address] [place] [address] [phone] Shaylee Obrien MD [address] [place] [address] [phone] documented as of this encounter Visit Diagnoses Not on filedocumented in this encounter Care Teams Humanities Department Chair Relationship Specialty Start Date End Date Shaylee Obrien MD [address] [place] [phone] PCP - General Internal Medicine 11/15/23 documented as of this encounter
--- OUTSIDE RECORDS SUMMARY | 2025-01-05 21:09 | XMS_ITS | Encounter Summary ---
Author Organization [facility] Address [address] [place] [address] 7[address] [place] [address] Care Team Providers Care Supervisor Mail Carriers Name Role Phone Shaylee Obrien MD Primary Care Provider + Encounter Details Date Type Department Care Team (Late st Contact Info) Description 01/05/2025 Orders Only [facility] External Provider, [facility] Social History Tobacco Use Types Packs/Day Years [...] Office Visit [facility] [address] [place] [address] [phone] 03/03/2025 11:15 AM EST Office Visit [facility] [address] [place] [address] [phone] Shaylee Obrien MD [address] [place] [address] [phone] documented as of this encounter Procedures Procedure Name Priority Date/Time Associated Diagnosis Comments XR KNEE 4+ VIEWS LEFT Routine 01/05/2025 1:48 PM EDT documented in this encounter Results * XR Knee 4+ Views Left (01/05/2025 1:48 PM EDT) Anatomical Region Laterality Modality Lower Extremities, Knee Left [facility] 01/05/2025 1:4 8 PM EDT Narrative 01/05/2025 2:00 PM EDT [address] [address] XRay Report Signed Patient: Vanessa Nash MR#: [id number] [birth year] : 1975 Acct:[id number] Age/Sex: 49 / F ADM Date: 01/05/25 Loc: .ED Attending Dr: Ordering Physician: Roge Prajapati Date of Service: 01/05/25 Procedure(s): XR knee LT 4V Accession Number(s): [id number] cc: UCHE FAITH MD; Roge Prajapati Reason [...] 01/05/25 1357 DD/ 1348 TD/TT: 01/05/25 1352 Marine Water Tender: Procedure Note Donotuseinterpreter, Image - 01/05/[address] [address] XRay Report Signed Patient: Keshav Nash#: [id number] [birth year] : 1975Acct:[id number] Age/Sex: 49 / FADM Date: 01/05/25 Loc: HO.ED Attending Dr: Ordering Physician: Roge Prajapati Date of Service: 01/05/25 Procedure(s): XR knee LT 4V Accession Number(s): [id number] cc: UCHE FAITH MD; Roge Prajapati Reason [...] Gus Hernandez MD 01/05/2025 01:57 PM EDT RP Dictated By: Gus Hernandez MD Signed By: <Electronically signed by Gus Hernandez MD in OV> 01/05/25 1357 DD/ 1348 TD/TT: 01/05/25 1352 Marine Water Tender: [facility] External Provider IMG XR PROCEDURES Edited Result - Final documented in this encounter Visit Diagnoses Not on filedocumented in this encounter Additional Health Concerns Assessment Noted Time PHQ-9 Depression Total Score: 17 025 10:18 AM EDT documented as of this encounter Care Teams Supervisor Mail Carriers Relationship Specialty Start Date End Date Shaylee Obrien MD [address] [place] [phone] PCP - General Internal Medicine 11/15/23 documented as of this encounter
== END 2025-01-05 16:49 | disposition home or self-care (01) ==
LOC: HO.ED 16:43
PROVIDERS: Emergency Provider Emergency Medicine; PCP Internal Medicine
DX: M17.12 Unilateral primary osteoarthritis, left knee (principal); R60.0 Localized edema; F17.200 Nicotine dependence, unspecified, uncomplicated; Z71.6 Tobacco abuse counseling
CPT/HCPCS: 73564; 99281; 99283

== ENCOUNTER → 2025-01-05 13:42 | Outpatient (BNV) | payer MEDICAID, SELFPAY | PROVIDERS: PCP Emergency Medicine; Visit Provider Radiology Diagnostic Radiology | DX: M25.462 Effusion, left knee (principal); Z87.81 Personal history of (healed) traumatic fracture | CPT/HCPCS: 73564 ==

== ENCOUNTER 2025-01-25 08:51 | Outpatient (REF) | payer MEDICAID, SELFPAY ==
--- OUTSIDE RECORDS SUMMARY | 2025-01-11 10:00 | XMS_ITS | Encounter Summary ---
Author Organization [facility] Address [address] [place] [address] 7 [place] [address] Care Team Providers Care Painter And Grader Cork Name Role Phone Shaylee Obrien MD Primary Care Provider + Encounter Details Date Type Department Care Team (Latest Contact Info) Description 01/11/2025 11:00 AM EDT Office Visit [facility] [address] [place] [address] [phone] Elizabeth Yuan MD [address] [place], [place] [phone] Primary osteoarthritis of both hips (Primary Dx); Tenosynovitis of right wrist; Post-traumatic osteoarthritis of left knee Social History Tobacco Use Types Packs/Day Years [...] your housing situation today? I have laurita sing 11/15/[address] you li [...] AM EST documented as of this encounter Progress Notes * Elizabeth Yuan MD - 01/11/2025 11:00 AM EDT Subjective: Vanessa Nash is a 49 y.o. female w/ PMH HLD, obesity, pelvic pain, R nephrectomy, PTSD, primary OA of hips and knees, who presents to the office for - Chronic Pain Clinic Group visits. Initial Group visit: 01/11/25 Group Visit Number: 1 Last PCP visit: [facility] Confidentiality last signed: 01/11/25 Group Topic: Procedures from Pain Management Chronic Pain History: hip and knee OA Associated Diagnosis: PTSD Relevant Imagin01/05/25 plain films xray XR/XR knee LT 4V IMPRESSION: 1. No acute bony abnormalities of the left knee. 2. Fixated and healed previous tibial plateau fracture. 3. Joint effusion. 4. No significant change from 11/30/2024. Current pharm tx: Cymbalta 30mg, methocarbamol 500mg, volatren gel, Tyelnol Medication: States taking medication as prescribed. Non-pharm tx: Related Specialists: ortho Functional Goals: Other social history: Tobacco: yes Marijuana: no Alcohol: no Illicit substances: no Review of Systems Constitutional: Negative. Respiratory: Negative. Cardiovascular: Negative. Musculoskeletal: Positive for arthralgias, back pain and myalgias. Physical Exam Vitals reviewed. Constitutional: Appearance: Normal appearance. HENT: Head: Normocephalic and atraumatic. Nose: Nose normal. Skin: General: Skin is warm and dry. Neurological: General: No focal deficit present. Mental Status: She is alert and oriented to person, place, and time. Psychiatric: Mood and Affect: Mood normal. Behavior: Behavior normal. Problem List Items Addressed This Visit Tenosynovitis of right wrist Post-traumatic osteoarthritis of left knee Primary osteoarthritis of both hips - Primary Current Assessment & Plan Pt attended and participated in chronic pain group today - good engagement with group model of care - continue to use combination of non-pharmacological modalities to address pain - followup in 1-2 weeks Follow up: 1-2 weeks for Group Chronic Pain Clinic. Follow up as scheduled with PCP, sooner as needed. documented in this encounter Miscellaneous Notes * Assessment & Plan Note - Elizabeth Yuan MD - 01/13/2025 12:12 PM EDT Associated Problem(s): Primary osteoarthritis of both hips Pt attended and participated in chronic pain group today - good engagement with group model of care - continue to use combination of non-pharmacological modalities to address pain - followup in 1-2 weeks * Addendum Note - Elizabeth Yuan MD - 01/11/2025 11:00 AM EDTAddended by: ELIZABETH YUAN on: 01/24/2025 07:46 AM Modules accepted: Orders documented in this encounter Plan of Treatment Upcoming Encounters Date Type Department Care Team (Late st Contact Info) Description 03/03/2025 11:15 AM EST Office Visit [facility] [address] [place] [phone] Shaylee Obrien MD [address] [place] [phone] documented as of this encounter Visit Diagnoses Diagnosis Primary osteoarthritis of both hips- Primary Tenosynovitis of right wrist Post-traumatic osteoarthritis of left knee documented in this encounter Additional Health Concerns Assessment Noted Time PHQ-9 Depression Total Score: 17 025 10:18 AM EDT documented as of this encounter Care Teams Painter And Grader Cork Relationship Specialty Start Date End Date Shaylee Obrien MD [address] [place] [phone] PCP - General Internal Medicine 11/15/23 documented as of this encounter
--- OUTSIDE RECORDS SUMMARY | 2025-01-26 09:15 | XMS_ITS | Encounter Summary ---
Author Organization [facility] Address [address] [place] [address] [address] [place] [address] Care Team Providers Care Drums Teacher Name Role Phone Shaylee Obrien MD Primary Care Provider + Reason for Visit * Reason Comments Med Refill Encounter Details Date Type Department Care Team (Late Contact Info) Description 09/06/2023 Refill [facility] [address] [place] [address] [phone] Vijay Barron MD [address] [place] [phone] Social History Tobacco Use Types Packs/Day Years [...] Department Care Team (Late Contact Info) Description 03/03/2025 11:15 AM EST Office Visit [facility] [address] [place] [phone] Shaylee Obrien MD [address] [place] [address] [phone] documented as of this encounter Visit Diagnoses Not on filedocumented in this encounter Care Teams Drums Teacher Relationship Specialty Start Date End Date Shaylee Obrien MD [address] [place] [phone] PCP - General Internal Medicine 11/15/23 documented as of this encounter
--- OUTSIDE RECORDS SUMMARY | 2025-01-26 09:15 | XMS_ITS | Clinical Summary ---
Author Organization [employer] Address [address] [place] [address] 7[address] [place] [address] Care Team Providers Care Acid Loader Name Role Phone Amy Rogers MD Primary [...] 12/10/19 25 Active methocarbamol (Robaxin) 500 MG tabletIndications: Primary osteoarthritis of both hips TAKE 1 TABLET BY MOUTH THREE TIMES A DAY FOR 10 DAYS 30 tablet 3 12/10/19 25 Active lidocaine (Xylocaine) 5 % ointmentIndication s:Post-traumatic osteoarthritis of left knee APPLY TOPICALLY IF NEEDED FOR FOR MILD PAIN 35.44 g 3 12/10/19 25 Active DULoxetine (Cymbalta) [address] capsule Take 1 capsule (30 mg) by mouth Once per day. Do not crush or chew. 60 capsule 3 01/01/20 25 026 Active Diclofenac Sodium 1 % gel APPLY 4 GRAMS TOPICALLY TO AFFECTED AREA(S) FOUR TIMES DAILY NEEDED FOR PAIN (PAIN SCALE 4-6) APPLY TO KNEE, ANKLE, AND FOOT 01/06/20 25 Active morphine (MSIR) 15 MG tablet Take 1 tablet by mouth if needed in the morning and at bedtime for pain. 01/06/20 25 Active venlafaxine XR (Effexor XR) 37.5 MG 24 hr capsule TAKE 1 CAPSULE BY MOUTH ONCE DAILY DO NOT BREAK, CRUSH, DISSOLVE OR CHEW 30 capsule 3 12/10/19 25 025 Discontin ued(Side effects) Active Problems Problem Noted Date Diagnosed [...] Encounter for immunization 01/20/2024 Panic disorder 01/20/2024 Assessment & Plan (01/06/2025 11:06 AM EDT): Pelvic pain in female 01/06/2024 Overview (01/06/2024): [place] [facility]OO 12/2020 Lysis of adhesions + pelvic cyst resection 12/2022 Assessment & Plan (12/31/2024 3:43 PM EDT): Most likely related to adhesions from previous surgery, discussed about constipation, postprandial ambulation and increase water intake She is scheduled to see GI in 2 months She did not make appointment with [facility], we discussed about holding off on a second opinion from [facility] until after she is seen by GI. Take Tylenol as needed Assessment & Plan (07/22/2024 10:58 AM EDT): Related to adhesions from previous surgeries. Recommended to avoid constipation, increase physical activity especially after meals, increase water intake etc. I gave her information regarding GI referral so that she can to schedule appointment I gave her information regarding [facility] referral that she has requested previously again we discussed that it is very unlikely that her [facility] can help relieve any the case of adhesions, she will get back to me as needed abdominal/pelvic pain Assessment & Plan (01/20/2024 12:04 PM EST): Ro colon pathology, she was referred to GI for colonoscopy. It could also be related to pelvic adhesions, I d/w patient re potential sxs, she will re consult prn uTI , incontinence sxs. A referral to [facility] has been made at her request, she's aware that she needs to bring surgical information to [facility] and that sxs are most likely NOT related to [facility] cause. Tenosynovitis of right wrist 12/23/2023 Assessment [...] of both hips 11/15/2023 Assessment & Plan (01/13/2025 12:12 PM EDT): Pt attended and participated in chronic pain group today - good engagement with group model of care - continue to use combination of non-pharmacological modalities to address pain - followup in 1-2 weeks Assessment & Plan (07/22/2024 10:54 AM EDT): [...] Cyst of left kidney 03/04/2023 Overview (10/21/2024): [facility] Renal US 09/17/23: Left renal complex cyst on lower pole, with septations and internal echoes but no vascularity, measures 3.2 x 3.4 x 3.3 cm. Absent right kidney. [facility] renal US on 11/19/2024 showed 4 cm septated left renal cyst/Bosniak 1 Assessment & Plan (12/31/2024 3:44 PM EDT): She has 1 kidney, followed by day care worker. She is to be follow-up every year. Assessment & Plan (11/15/2023 1:30 PM EDT): She has been referred to Nephrology already, will obtain BMP. Obtain previous US from previous PCP. Generalized anxiety disorder with panic attacks 03/04/2023 Assessment & Plan (12/31/2024 3:44 PM EDT): Venlafaxine was DC'd by day care worker, will start duloxetine 30 mg and [...] organization. Date Type Department Care Team Description 01/18/2025 Travel 01/11/2025 11:00 AM EDT Office Visit [facility] [address] [place] [phone] Francy Dick MD Primary osteoarthritis of both hips (Primary Dx); Tenosynovitis of right wrist; Post-traumatic osteoarthritis of left knee 01/11/2025 Travel 01/06/2025 Patient Outreach [facility] [address] [place] [phone] Amy Rogers MD Care Coordination ([facility] assistance) 01/05/2025 Orders Only [facility] External Provider, [facility] 12/31/2024 10:30 AM EDT Office Visit [facility] [address] [place] [phone] Amy Rogers MD Screening for colon cancer (Primary Dx); Post-traumatic osteoarthritis of left knee; Tenosynovitis of right wrist; Mixed hyperlipidemia; Class 1 obesity due to excess calories without serious comorbidity with body mass index (BMI) of 32.0 to 32.9 in adult; Pelvic pain in female; Generalized anxiety disorder with panic attacks; Dietary counseling; Exercise counseling; Cyst of left kidney 12/31/2024 Travel 12/30/2024 Telephone [facility] [address] [place] [phone] Amy Rogers MD Chart prep 12/23/2024 Patient Outreach [facility] [address] [place] [phone] Amy Rogers MD Pre-visit Planning (SDOH screening completed on 04/17/2024) 12/08/2024 Refill [facility] [address] [place] [phone] Amy Rogers MD Primary osteoarthritis of both hips; Post-traumatic osteoarthritis of left knee 11/30/2024 Orders Only [facility] External Provider, [facility] 11/23/2024 3:20 PM EDT Office Visit [facility] [address] [place] [phone] Brandy Rosado, WHIT Right wrist pain (Primary Dx) 11/23/2024 Travel from Last 3 Months Immunizations Immunization Administration [...] Description 03/03/2025 11:15 AM EST Office Visit [facility] [address], [place] [phone] Amy Rogers MD [address], [place] [phone] Health Maintenance Due Date Last Done Comments CT Colonography 1977 Colonoscopy 1977 Colorectal Cancer Screening 1977 FIT DNA/Cologuard 1977 FIT 1977 FOBT 1977 Sigmoidoscopy 1977 DTaP/Tdap/Td Vaccines (1 - Tdap) 1996 Hepatitis B Vaccines (2 of 3 - 19+ 3-dose series) 01/20/2024 12/23/2023 COVID-19 Vaccine (1 - 2023-2 5 season) 2024 Influenza Vaccine (#1) 2024 01/20/2024 Mammogram 03/04/2025 03/04/2024 SDOH Screening 04/17/2025 04/17/2024 Depression Monitoring 07/01/2025 12/31/2024 , 12/31/2024 Alcohol/Substance Use Screening 12/31/2025 12/31/2024 Disability Screening 12/31/2025 12/31/2024 Family Planning (PISQ) 12/31/2025 12/31/2024 Tobacco Screening 01/13/2026 01/13/2025 Zoster Vaccines (1 of 2) 2027 Lipid [...] VIEWS LEFT Routine 11/30/2024 8:55 AM EDT LIPID PANEL WITH REFLEX TO DIRECT LDL Routine 10/20/2024 9:30 AM EDT Mixed hyperlipidemia BI MAMMOGRAM SCREENING TOMOSYNTHESIS BILATERAL Routine 03/04/2024 [...] Lower Extremities, Knee Left Radiogra [facility] 01/05/2025 1:48 PM EDT Narrative 01/05/2025 2:00 PM EDT [address] [address] XRay Report Signed Patient: Vanessa Nash MR#: [id number] [birth year] : 1975 Acct:[id number] Age/Sex: 49 / F ADM Date: 01/05/25 Loc: HO.ED Attending Dr: Ordering Physician: Roge Prajapati Date of Service: 01/05/25 Procedure(s): XR knee LT 4V Accession Number(s): [id number] cc: UCHE FAITH MD; Roge Prajapati Reason [...] 01/05/25 1357 DD/ 1348 TD/TT: 01/05/25 1352 Storeroom Supervisor: Procedure Note Donotuseinterpreter, Image - 01/05/[address] [address] XRay Report Signed Patient: Edith NashR#: [id number] [birth year] : 1975Acct:[id number] Age/Sex: 49 / FADM Date: 01/05/25 Loc: HO.ED Attending Dr: Ordering Physician: Roge Prajapati Date of Service: 01/05/25 Procedure(s): XR knee LT 4V Accession Number(s): [id number] cc: UCHE FAITH MD; Roge Prajapati Reason [...] 01/05/25 1357 DD/ 1348 TD/TT: 01/05/25 1352 Storeroom Supervisor: [facility] External Provider IMG XR PROCEDURES Edited Result - Final * XR Wrist 3+ Views Right (11/30/2024 9:05 AM EDT) Anatomical Region Laterality Modality Upper Extremities, Wrist Right Radiogr [facility] 11/30/2024 9:05 AM EDT Narrative 11/30/2024 9:13 AM EDT [address] [address] XRay Report Signed Patient: Vanessa Nash MR#: [id number] [birth year] : 1975 Acct:[id number] Age/Sex: 49 / F ADM Date: 11/30/24 Loc: HO.ED Attending Dr: Ordering Physician: Chencho Us DO Date of Service: 11/30/24 Procedure(s): XR wrist RT min 3V Accession Number(s): [id number] cc: [facility]; Chencho Us DO Reason for Exam: pain [...] Gus Hernandez MD in OV> 11/30/24910 DD/ 09 TD/TT: 11/30/24 09 Storeroom Supervisor: Procedure Note Donotuseinterpreter, Image - 11/30/2024 [place] [address] XRay Report Signed Patient: Keshav Nash#: [id number] [birth year] : 1975Acct:[id number] Age/Sex: 49 / FADM Date: 11/30/24 Loc: .ED Attending Dr: Ordering Physician: Chencho Us DO Date of Service: 11/30/24 Procedure(s): XR wrist RT min 3V Accession Number(s): [id number] cc: [facility]; Chencho Us DO Reason for Exam: pain [...] in OV> 11/30/24910 DD/ 4 TD/TT: 11/30/24906 Storeroom Supervisor: [facility] External Provider IMG XR PROCEDURES Edited Result - Final * (ABNORMAL) Lipid Panel with Reflex to Direct LDL (10/20/2024 9:30 AM EDT) Triglycerides 186(H) <150 mg/dL [facility] Comment:Desirable Triglyceri de: less than 150 mg/dLBorderline High Triglyceride 150-199 mg/dLHigh Triglyceride: 200-499 mg/dLVery High Triglyceride: greater than or equal to 5OO mg/dL Cholesterol 190 <200 mg/dL [facility] Comment:Desirable Cholestero l: less than 200 mg/dLBorderline High Cholesterol: 200-239 mg/dLHigh Cholesterol: greater than 239 mg/dL LDL Cholesterol Calculated 97 <100 mg/dL [facility] Comment:Desirable LDL: less than 100 mg/dLNear Optimal/Above Optimal LDL: 110- 129 mg/dLBorderline High LDL: 130-159 mg/dLHigh LDL: 160-189 mg/dLVery High LDL: greater than or equal to 190 mg/dL HDL Cholesterol 56 >40 mg/dL [facility] Comment:Desirable HDL: great er than 40 mg/dL Note: This HDL assay may give artificially low results in patients with liver disease. Blood 10/20/2024 9:30 AM EDT 10/20/2024 11:13 AM EDT Amy Rogers MD LAB BLOOD ORDERABLES Fin al Result [facility] [address] [place] [phone] * BI Mammogram Screening Tomosynthesis Bilateral (03/04/2024 10:15 AM EST) Anatomical Region Laterality Modality Breast Bilateral Mammography 03/04/2024 10:1 5 AM EST Narrative 03/16/2024 2:04 PM EST [address] [place] [address] Mammography Report Signed Patient: Vanessa Nash MR#: [id number] [birth year] : 1975 Acct:[id number] Age/Sex: 48 / F ADM Date: 03/04/24 Loc: HO.MAMMO Attending Dr: Amy Rogers MD Ordering Physician: Amy Rogers MD Results: 1Ne gative Date of Service: 03/04/24 Follow Up: 1 Year From Orig ina Mammogram Procedure(s): MM tomosynthesis screening BI Accession Number(s): [id number] cc: Amy Rogers MD EXAMINATION: MM SCREENING [...] 03/16/24 1401 DD/ 1015 TD/TT: 03/04/24 1025 Storeroom Supervisor: Procedure Note Donotuseinterpreter, Image - 03/16/[address] [place] [address] Mammography Report Signed Patient: Keshav Nash#: [id number] [birth year] : 1975Acct:[id number] Age/Sex: 48 / FADM Date: 03/04/24 Loc: HO.MAMMO Attending Dr: Amy Rogers MD Ordering Physician: Amy Rogers MDResults: 1Ne gative Date of Service: 03/04/24Follow Up: 1 Year From Orig ina Mammogram Procedure(s): MM tomosynthesis screening BI Accession Number(s): [id number] cc: Amy Rogers MD EXAMINATION: MM SCREENING [...] by: Brittany Gilliland DO 03/16/2024 02:01 PM [facility] Dictated By: Brittany Gilliland DO Signed By: <Electronically signed by Brittany Gilliland DO in OV> 03/16/24 1401 DD/ 1015 TD/TT: 03/04/24 1025 Storeroom Supervisor: Amy Rogers MD IMG BI PROCEDURES Final Result * Hepatitis Panel, General (11/20/2023 9:46 AM EDT) Hepatitis A IgM Nonreactive Nonreactive [facility] Comment:IgM antibodies to PASTRANA V not detected; does not exclude earlyacute or recovered HAV infection. ~Hepatitis B Surface Antibody NONREACTIVE Nonreactive [facility] Comment:Nonreactive: < 8.00 mIU/mL Hepatitis B Core Antibody Nonreactive Nonreactive [facility] Hepatitis C Antibody Nonreactive Nonreactive [facility] Comment:Antibodies to HCV no t detected; does not exclude early acuteHCV infection. Hepatitis B Surface Ag Negative Negative [facility] Blood 11/20/2023 9:46 AM EDT 11/20/2023 11:03 AM EDT Amy Rogers MD LAB BLOOD ORDERABLES Fin al Result Performing Organization Address [facility] Co de Phone Number [facility] [address] [place] [phone] * HIV-1/2 Antigen and Antibodies, Fourth Generation, with Reflexes (11/20/2023 9:46 AM EDT) HIV AB/AG Nonreactive Nonreactive [facility] Comment:HIV-1 p24 Ag and/or HIV-1/HIV-2 Ab not detected.A test result that is nonreactive does not exclude thepossibility of exposure to or infection with HIV-1 and/orHIV-2. Nonreactive results in this assay for individualswith prior exposure to HIV-1 and/or HIV-2 may be due toantigen and antibody levels that are below the limit ofdetection of this assay.The [employer] HIV Ag/Ab Combo assay result andsupplemental assay results should be interpreted inconjunction with the patient's clinical presentation,history and other laboratory results. If the results areinconsistent with clinical evidence, additional testing issuggested to confirm the result. Blood Venous blood specimen / Unknown 11/20/2023 9:46 AM EDT 11/20/2023 11:03 AM EDT us Amy Rogers MD LAB BLOOD ORDERABLES Fin al Result Performing Organization Address City/[facility]/ZIP Co de Phone Number [facility] [address] [place] [phone] from Last 3 Months or Most Recently Relevant to Health Maintenance Insurance [employer] Care Teams Acid Loader Relationship Specialty Start Date End Date Amy Rogers MD [address] [place] [phone] PCP - General Internal Medicine 11/15/23
== END 2025-01-25 08:52 | disposition home or self-care (01) ==
LOC: HO.HOSX 08:51
PROVIDERS: Visit Provider Physician Assistant
DX: Z13.89 Encounter for screening for other disorder (principal)